=== PATIENT | female | born 1955 | race Caucasian/White ===

== ENCOUNTER 2020-05-06 13:02 | Outpatient (REF) | payer MEDICARE, OTHER, SELFPAY ==
--- NOTE | 2020-05-06 13:07 | CT_ITS ---
EXAMINATION: CT CHEST WITHOUT CONTRAST CLINICAL INFORMATION: Follow-up pulmonary nodules COMPARISON: Previous chest CT scans most recent April 2019 TECHNIQUE: Multidetector volumetric CT imaging of the chest was done. Axial MIP volume rendering provided. Sagittal and coronal reformatted images were obtained. This CT examination was performed using dose optimization techniques as appropriate, variously including the following: *Automated exposure control *Adjustment of mA and/or kV according to patient size (this includes techniques or standardized protocols for targeted exams where dose is matched to indication/reason for exam; i.e. extremities or head) *Use of iterative reconstruction technique DLP: 129 mGy-cm FINDINGS: LUNGS: The clustered calcified and noncalcified nodules or tree-in-bud appearance in the posterior right lower lobe for example axial image 353 series 5 are stable. Other smaller isolated up pulmonary nodules, largest measuring 3 mm in the left upper lobe axial image 274 series 5 are stable. No new pulmonary nodules are seen. MEDIASTINUM: The ascending thoracic aorta is upper normal in size measuring 4 cm. The aortic arch and descending thoracic aorta are normal in caliber. The heart does not appear enlarged. There is moderate coronary artery calcification. There is no pericardial effusion. There are no enlarged hilar or mediastinal lymph nodes. PLEURA: There is no pleural effusion. No pleural mass or thickening. AXILLA: No lymphadenopathy. UPPER ABDOMEN: Unremarkable. OSSEOUS STRUCTURES: There are degenerative changes of the spine. CT/CT chest wo con IMPRESSION: Stable small pulmonary nodules. Upper normal-size ascending thoracic aorta. Moderate coronary artery calcification.
== END 2020-05-06 13:03 | disposition home or self-care (01) ==
LOC: HO.CT 13:02
PROVIDERS: PCP Internal Medicine; Visit Provider Internal Medicine Pulmonary Disease
DX: R91.8 Other nonspecific abnormal finding of lung field (principal)
CPT/HCPCS: 71250

== ENCOUNTER 2020-05-12 07:52 | Outpatient (REF) | payer MEDICARE, OTHER, SELFPAY ==
[2020-05-12 08:39] LABS: MANUAL DIFF FLAG NO
[2020-05-12 08:53] LABS: Basophils Percent Auto 0.6 % (0-2); Eosinophils Absolute Auto 0.1 X10*3/uL (0.0-0.4); Hemoglobin 14.7 g/dl (12.0-16.0); Imm Gran Abs Auto 0.01 X10*3/uL (0.00-0.03); Imm Gran Pct Auto 0.1 % (0.0-0.4); Lymphocytes Absolute Auto 2.7 X10*3/uL (1.2-4.9); Lymphocytes Percent Auto 40.1 % (20-40); Mean Corpuscular HGB Conc 33.4 g/dl (31.0-35.0); Mean Corpuscular Volume 89.8 fL (80-98); Mean Platelet Volume 10.4 fL (9.4-12.3); Monocytes Absolute Auto 0.7 X10*3/uL (0.1-1.2); Monocytes Percent Auto 9.7 % (2-11); Neutrophils Absolute Auto 3.2 X10*3/uL (2.0-8.3); Neutrophils Percent Auto 47.5 % (45-73); Platelet Count 304 X10*3/uL (160-400); Red Cell Distribution Width 12.5 % (11.0-16.0); White Blood Count 6.8 X10*3/uL (4.8-10.8)
[2020-05-12 09:05] LABS: Glucose Urine UA NEG (NEG); Leukocyte Esterase Urine NEG (NEG); Nitrite Urine NEG (NEG); Urine Blood 1+ (NEG); Urine Ketones NEG (NEG); Urine Protein NEG (NEG-TRACE)
[2020-05-12 09:10] LABS: Appearance Urine CLEAR; Color Urine YELLOW
[2020-05-12 09:20] LABS: Alanine Aminotransferase 16 U/L (0-31); Albumin Level 4.2 g/dL (3.5-5.0); Alkaline Phosphatase 99 U/L (39-117); Anion Gap 9 (12-20); Aspartate Amino Transferase 18 U/L (5-31); Bilirubin Total 0.6 mg/dL (0.0-1.0); Blood Urea Nitrogen 16 mg/dL (9-16); Calcium 9.5 mg/dL (8.4-10.2); Carbon Dioxide 35 mmol/L (22-29); Chloride 102 mmol/L (96-108); Cholesterol 175 mg/dL; Estimated Glomerular Filt Rate > 60; Glucose Fasting 103 mg/dL (60-99); HDL Cholesterol 46 mg/dL; LDL Cholesterol Calculated 105 mg/dl; Potassium 5.2 mmol/l (3.3-5.1); Sodium 141 mmol/L (135-145); Total Protein 7.3 g/dL (6.5-8.0); Triglycerides 123 mg/dL
[2020-05-12 09:22] LABS: Estimated Average Glucose 126 mg/dL
[2020-05-12 09:24] LABS: Mucus Urine 1+ /LPF; Squamous Epithelial Cell Urine 1+ /LPF; WBC Urine 0-2 /HPF (0-4)
[2020-05-12 09:40] LABS: Free T4 (Free Thyroxine) 1.48 ng/dL (0.71-1.85); Thyroid Stimulating Hormone < 0.01 uIU/mL (0.32-4.0); Vitamin D 25-OH Total 39.9 ng/mL (>30)
== END 2020-05-12 07:53 | disposition home or self-care (01) ==
LOC: HO.LAB 07:52
PROVIDERS: Visit Provider Internal Medicine
DX: E78.00 Pure hypercholesterolemia, unspecified (principal); I10 Essential (primary) hypertension; R73.01 Impaired fasting glucose; R74.8 Abnormal levels of other serum enzymes; E03.9 Hypothyroidism, unspecified; K21.9 Gastro-esophageal reflux disease without esophagitis; E55.9 Vitamin D deficiency, unspecified
CPT/HCPCS: 36415; 80053; 80061; 81001; 82306; 83036; 84439; 84443; 85025

== ENCOUNTER → 2020-05-19 12:45 | Outpatient (BNVA) | payer MEDICARE, OTHER, SELFPAY | PROVIDERS: PCP Internal Medicine; Visit Provider Internal Medicine Pulmonary Disease | DX: R91.8 Other nonspecific abnormal finding of lung field (principal) | CPT/HCPCS: 99212 ==

== ENCOUNTER → 2020-07-20 13:35 | Outpatient (REF) | payer MEDICARE, OTHER, SELFPAY ==
--- NOTE | 2020-07-20 14:00 | CA_ITS ---
Transthoracic Echocardiogram Patient (Last, First, Middle): Bernice Jauregui A Gender: Female Date of : 1955 Age: 65 Procedure Date: 07/20/2020 Procedure Type: Transthoracic Echocardiogram Location: OP Height: 170.18 cm Weight: 65.77 kg BSA: 1.76 m2 Heart Rate: bpm BP: 118 / 60 mmHg Bullet Maker: Referring MD: Gil Khoury MD Symptoms: I71.2 ASCENDING AORTIC ANEURYSM Study Quality: Fair ECG Rhythm: Sinus Conclusions: - 1. Normal LV systolic function with impaired relaxation filling pattern 2. Mildly dilated ascending aorta with trivial aortic regurgitation 3. Normal RV systolic pressure 4. No pericardial effusion Findings Left Ventricle Normal left ventricular size, thickness, and systolic function. The visually estimated ejection fraction is between 65-70%. Spectral Doppler is indicative of an impaired relaxation filling pattern. E/E prime ratio is between 8 and 15 consistent with indeterminate filling pressures. Right Ventricle Normal right ventricular cavity size and systolic function. Atria Both atria are normal in size. There is no evidence of interatrial shunt. Aortic Valve Normal aortic valve structure and function. There is no aortic valve stenosis. There is trace (trivial) aortic valve regurgitation. Mitral Valve Normal mitral valve structure and function. There is no mitral valve regurgitation. There is no mitral valve stenosis. Pulmonic Valve The pulmonic valve was not well visualized. Tricuspid Valve Likely normal tricuspid valve structure and function. There is trace tricuspid valve regurgitation. The right ventricular systolic pressure is normal. The right ventricular systolic pressure is 23 mmHg. Normal right atrial pressure. There is no evidence of pulmonary hypertension. Great Vessels The pulmonary artery was not well visualized. There is mild dilatation of the ascending aorta. Venous The inferior vena cava is normal in size and collapses greater than 50% with inspiration. Pericardium/Pleural There is no evidence of pericardial effusion. Prior Study Comparison No significant change compared to prior study dated: 10/27/2017. Measurements 2D Linear Measurements IVSd: 0.95 0.6-0.9/0.6-1.0 cm LVIDd: 3.14 3.9-5.3/4.2-5.9 cm LVIDd Index: 1.78 2.4-3.2/2.2-3.1 cm/m2 LVIDs: 2.08 2.0-3.6 cm LVPWd: 1.06 0.7-1.1 cm Ao Root: 3.80 2.1-3.5 cm LA Diam: 3.60 2.7-3.8/3.0-4.0 cm LAIDs Index: 2.05 1.5-2.3 cm/m2 LV Mass: 152.41 67-162/88-224 g LV Mass Index: 86.59 43-95/49-115 g/m2 LVOT Diam: 2.00 3.0+(-)1.3 cm Mitral Valve MV Pk E: 0.71 MV PK A: 1.18 MV Decel Time: 183.00 E/A: 0.60 E'Lateral: 9.09 E'Medial: 5.13 E/E' Med: 13.80 E/E' Lat: 7.80 PHT: 54.00 MVA PHT: 4.07 Decel [place]: 3.87 Aortic Valve AoV Pk Randall: 1.87 AoV Mn Randall: 1.40 AoV VTI: 0.40 AoV Pk Grad: 14.00 Aov Mn Grad: 9.00 RODOLFO Cont.VTI: 2.19 LVOT LVOT Pk Randall: 1.39 LVOT Mn Randall: 0.88 LVOT VTI: 0.28 LVOT Pk Grad: 8.00 LVOT Mn Grad: 4.00 LVOT Diam: 2.00 LVOT Area: 3.14 Diastolic Function MV Pk E: 0.71 MV Pk A: 1.18 E/A: 0.60 E'Medial: 5.13 E/E' Med: 13.80 E' Laterial: 9.09 E/E' Lat: 7.80 Tricuspid Valve TR Pk Randall: 2.21 TR Pk Grad: 20.00 RA Press: 3.00 RVSP: 23.00 Great Vessels Aorta Ao Root-2D: 3.80 2.0-3.7 cm Ao Asc: 3.90 2.1-3.4 cm Pulmonary Valve PV Pk Randall: 0.92 Peak PV Grad: 3.00 Updated in Other Vendor System with Status of Final Keith Sifuentes MD electronically signed on 07/21/2020 8:47:49 AM with status of Final
== END ==
LOC: HO.CARD 13:35
PROVIDERS: PCP Internal Medicine; Visit Provider Internal Medicine
DX: I71.2 Thoracic aortic aneurysm, without rupture (principal)
CPT/HCPCS: 93306

== ENCOUNTER → 2020-07-28 13:38 | Outpatient (BNVA) | payer MEDICARE, OTHER, SELFPAY | PROVIDERS: PCP Internal Medicine; Visit Provider Internal Medicine | DX: I25.10 Atherosclerotic heart disease of native coronary artery without angina pectoris (principal); I71.2 Thoracic aortic aneurysm, without rupture; I10 Essential (primary) hypertension | CPT/HCPCS: 93005; 99212 ==

== ENCOUNTER 2020-09-06 00:36 | Emergency (ER) | payer MEDICARE, OTHER, SELFPAY ==
[2020-09-06] VITALS (8 sets, daily range): BP systolic 112–142; BP diastolic 69–79; PULSE 104–135; RESP 16–31; O2SAT 89–96; BMI 21.1; BMI 21.4
--- NOTE | ~2020-09-06 | XR_ITS ---
EXAMINATION: XR CHEST CLINICAL INFORMATION: Shortness of breath COMPARISON: CT chest dated 05/06/2020 TECHNIQUE: 2 views of the chest were obtained. FINDINGS: Pulmonary venous congestion. Bilateral parahilar hazy opacity and mild interstitial thickening present. No pleural effusion or pneumothorax. Normal heart size. Aorta is atherosclerotic. XR/XR chest 2V IMPRESSION: Radiographic findings could be compatible with either pulmonary edema or an atypical pneumonitis.
--- NOTE | ~2020-09-06 | CT_ITS ---
EXAMINATION: CT CHEST WITH CONTRAST CLINICAL INFORMATION: New onset heart failure. No aortic aneurysm. COMPARISON: 05/06/2020 TECHNIQUE: Multidetector volumetric CT imaging of the chest was obtained after the administration of 65 mL of Omnipaque 350 intravenous contrast without immediate adverse reactions. Axial MIP volume rendering provided. Sagittal and coronal reformatted images were obtained. This CT examination was performed using dose optimization techniques as appropriate, variously including the following: *Automated exposure control *Adjustment of mA and/or kV according to patient size (this includes techniques or standardized protocols for targeted exams where dose is matched to indication/reason for exam; i.e. extremities or head) *Use of iterative reconstruction technique DLP: 188 mGy-cm FINDINGS: LUNGS: Smooth intralobular septal thickening present throughout both lungs reflective of interstitial pulmonary edema. There is diffuse mild peribronchial cuffing likely representing interstitial fluid along the neurovascular bundles is well. Scattered patchy groundglass opacities are present. Regionally distributed micronodules, some with shadowing calcification present within the posteromedial right lower lobe. MEDIASTINUM: Left ventricular dilatation appears new from prior. No pericardial effusion. Triple vessel coronary calcifications. Stable ascending aortic aneurysm measuring 4.0 cm. Main pulmonary artery mildly dilated at 31 mm suggesting pulmonary hypertension. No evidence of pulmonary embolism. No mediastinal, hilar or supraclavicular adenopathy. PLEURA: Trace right pleural effusion. No pleural mass or thickening. AXILLA: No lymphadenopathy. UPPER ABDOMEN: Unremarkable OSSEOUS STRUCTURES: No acute or suspicious osseous abnormalities. Small endplate ossified is present throughout the thoracic spine. CT/CT chest w con IMPRESSION: * Interstitial pulmonary edema. Scattered groundglass opacities could represent a superimposed pneumonitis or mild alveolar component of the patient's edema. * Trace right pleural effusion. * The left ventricle appears mildly dilated compared to the prior exam. * Mildly dilated main pulmonary artery suggests pulmonary hypertension. * Triple vessel coronary calcifications. * Stable ascending aortic aneurysm measuring 4.0 cm.
--- NOTE | 2020-09-06 01:34 | ECG_ITS ---
Test Reason : SOB Blood Pressure : / mmHG Vent. Rate : 113 BPM Atrial Rate : 113 BPM P-R Int : 152 ms QRS Dur : 092 ms QT Int : 326 ms P-R-T Axes : 033 009 080 degrees QTc Int : 447 ms Sinus tachycardia Moderate voltage criteria for LVH, may be normal variant Nonspecific T wave abnormality Abnormal ECG When compared with ECG of 14-APR-2016 09:15, Vent. rate has increased BY 49 BPM T wave inversion no longer evident in Inferior leads Referred By: Kathy Cantu Electronically Signed By:BABATUNDE WHITFIELD
--- NOTE | 2020-09-06 01:37 | ED_ITS ---
HPI - SOB/Dyspnea General Chief Complaint: Dyspnea Stated Complaint: Sob/Chest pressure Time Seen by Provider: 09/06/20 01:34 Source: patient Mode of arrival: ambulatory History of Present Illness HPI Narrative: This is a 65-year-old female with history of hypertension, thyroid disease, hyperlipidemia who presents this evening with worsening shortness of breath and dyspnea on exertion that started this afternoon after she was helping her mother move upstairs. Patient states that at the time of onset she did experience sweating as well as an episode of nausea but denies any dizziness. In addition, she does describe a small amount of chest discomfort and she points to the substernal chest area. She denies any recent fevers, chills, vomiting, abdominal pain, diarrhea, urinary pain/burning/frequency. She denies any previous history of COPD, heart failure. Related Data Home Medications Medication Instructions Recorded Confirmed cholecalciferol (vitamin D3) 25 25 mcg PO DAILY 06/05/20 09/06/20 mcg (1,000 unit) capsule atorvastatin 80 mg tablet 80 mg PO DAILY 07/28/20 09/06/20 Previous Rx's Medication Instructions Recorded fluoxetine 10 mg capsule 10 mg PO QAM #90 cap 03/18/20 levothyroxine 50 mcg tablet 50 mcg PO QAM #90 tab 05/16/20 hydrochlorothiazide 25 mg tablet 25 mg PO QAM #90 tab 06/08/20 Allergies Allergy/AdvReac Type Severity Reaction Status Date / Time Sulfa (Sulfonamide Allergy Unknown unknown Verified 06/05/20 12:11 Antibiotics) [SULFA (SULFONAMIDE ANTIBIOTICS)] Review of Systems Review of Systems: Pertinent positives and negatives as stated in HPI 10 point review of systems is otherwise negative. [facility] Past Medical History Source: nursing notes reviewed Medical History Acquired hypothyroidism Ascending aortic aneurysm Atherosclerotic cardiovascular disease Benign essential hypertension GERD without esophagitis Impaired fasting glucose Osteoarthritis of hands, bilateral PMS (premenstrual syndrome) Primary insomnia Pure hypercholesterolemia Vitamin D deficiency Surgical History No pertinent past surgical history Family History Family History Father Medical history unknown Mother Hypertension CVD (cardiovascular disease) Breast cancer metastasized to bone Social History Social History Alcohol intake: never Smoking Status: Former smoker Advance Directives: No Physical Exam Vital Signs: Vital Signs: Last Vital Signs Pulse 111 H 09/06/20 03:58 Resp 20 09/06/20 03:58 BP 123/77 09/06/20 03:58 Pulse Ox 94 09/06/20 03:58 Body Mass Index 21.4 VITAL SIGNS: Reviewed. GENERAL: Well developed, well nourished, in no acute distress. HEAD: Normocephalic/atraumatic NOSE: Nares patent bilateral OROPHARYNX: no oral lesions noted, posterior pharynx clear NECK: Supple, no adenopathy LUNGS: Normal breath sounds. No adventitious sounds or accessory muscle use. SpO2<91> CARDIOVASCULAR: Regular rate and rhythm without noted murmurs, no JVD or lower extremity edema. ABDOMEN: Soft, non-tender, non-distended with bowel sounds. NEUROLOGIC: Alert and oriented x 4. Course Course Course Narrative: This is a 65-year-old female with history and clinical presentation consistent with acute, new onset heart failure and will be evaluated for cardiac ischemia and patient with known ascending aortic aneurysm. Patient was placed on supplemental oxygen as she was noted to drop to 89% and chest x-ray is consistent with heart failure as well as elevated BNP. Review of EKG is without acute findings when compared to prior on 04/14/2016. In addition, will do CT scan of chest given patient's history of ascending aortic aneurysm. Review of all investigations significant for troponin of greater than 4900. This case was discussed with Cardiology at [facility] and patient is currently asymptomatic of chest pain but was provided with aspirin. Reevaluation(s) Reevaluation #1: I discussed this case with Dr. Gomez, Cardiology at [facility], who accepts transfer the patient to the telemetry floor with rec ommendations for atorvastatin and heparin. Heparin was started after CT scan shows a stable aortic aneurysm at 4 cm. Time: 03:50 MDM - SOB/Dyspnea Lab Data Result diagrams: 09/06/20 02:00 09/06/20 02:00 Labs: Lab Results 09/06/20 09/06/20 09/06/20 Range/Units 01:56 02:00 02:00 WBC 13.0 H (4.8-10.8) X10*3/uL RBC 4.71 (4.20-5.50) X10*6/uL Hgb 13.6 (12.0-16.0) g/dl Hct 40.3 (37-47) % MCV 85.6 (80-98) fL MCH 28.9 (27.0-33.0) pg MCHC 33.7 (31.0-35.0) g/dl RDW 12.4 (11.0-16.0) % Plt Count 299 (160-400) X10*3/uL MPV 10.3 (9.4-12.3) fL Immature Gran % (Auto) 0.2 (0.0-0.4) % Neut % (Auto) 73.1 H (45-73) % Lymph % (Auto) 17.7 L (20-40) % Crook % (Auto) 8.6 (2-11) % Eos % (Auto) 0.1 (0-4) % Baso % (Auto) 0.3 (0-2) % Lymph # (Auto) 2.3 (1.2-4.9) X10*3/uL [place] # (Auto) 1.1 (0.1-1.2) X10*3/uL Eos # (Auto) 0.0 (0.0-0.4) X10*3/uL Baso # (Auto) 0.0 (0.0-0.2) X10*3/uL Abs Immat Gran (auto) 0.03 (0.00-0.03) X10*3/uL Absolute Neuts (auto) 9.5 H (2.0-8.3) X10*3/uL Absolute Nucleated RBC 0.000 (0.0-0.012) X10*3/uL Nucleated RBC % (auto) 0.0 (0.0-0.2) /100WBC Sodium 141 (135-145) mmol/L Potassium 3.8 (3.3-5.1) mmol/L Chloride 102 (96-108) mmol/L Carbon Dioxide 26 (22-29) mmol/L Anion Gap 17 (12-20) BUN 20 H (9-16) mg/dL Creatinine 0.69 (0.5-1.4) mg/dL Estim Creat Clear Calc 76.4 Estimated GFR > 60 Random Glucose 144 H (60-115) mg/dL Calcium 9.6 (8.4-10.2) mg/dL Total Bilirubin 0.9 (0.0-1.0) mg/dL AST 41 H D (5-31) U/L ALT 30 (0-31) U/L Alkaline Phosphatase 103 (39-117) U/L Troponin I High Sens (<3.5-17.0) ng/L B-Natriuretic Peptide (<100) pg/mL Total Protein 7.0 (6.5-8.0) g/dL Albumin 3.9 (3.5-5.0) g/dL Lipase (8-78) U/L TSH (0.32-4.0) uIU/mL COVID-19 (LIT) Negative (Negative) COVID-19 Clin Com See Note 09/06/20 09/06/20 Range/Units 02:00 02:00 WBC (4.8-10.8) X10*3/uL RBC (4.20-5.50) X10*6/uL Hgb (12.0-16.0) g/dl Hct (37-47) % MCV (80-98) fL MCH (27.0-33.0) pg MCHC (31.0-35.0) g/dl RDW (11.0-16.0) % Plt Count (160-400) X10*3/uL MPV (9.4-12.3) fL Immature Gran % (Auto) (0.0-0.4) % Neut % (Auto) (45-73) % Lymph % (Auto) (20-40) % Crook % (Auto) (2-11) % Eos % (Auto) (0-4) % Baso % (Auto) (0-2) % Lymph # (Auto) (1.2-4.9) X10*3/uL Crook # (Auto) (0.1-1.2) X10*3/uL Eos # (Auto) (0.0-0.4) X10*3/uL Baso # (Auto) (0.0-0.2) X10*3/uL Abs Immat Gran (auto) (0.00-0.03) X10*3/uL Absolute Neuts (auto) (2.0-8.3) X10*3/uL Absolute Nucleated RBC (0.0-0.012) X10*3/uL Nucleated RBC % (auto) (0.0-0.2) /100WBC Sodium (135-145) mmol/L Potassium (3.3-5.1) mmol/L Chloride (96-108) mmol/L Carbon Dioxide (22-29) mmol/L Anion Gap (12-20) BUN (9-16) mg/dL Creatinine (0.5-1.4) mg/dL Estim Creat Clear Calc Estimated GFR Random Glucose (60-115) mg/dL Calcium (8.4-10.2) mg/dL Total Bilirubin (0.0-1.0) mg/dL AST (5-31) U/L ALT (0-31) U/L Alkaline Phosphatase (39-117) U/L Troponin I High Sens 4936.2 H (<3.5-17.0) ng/L B-Natriuretic Peptide 727 H (<100) pg/mL Total Protein (6.5-8.0) g/dL Albumin (3.5-5.0) g/dL Lipase 25 (8-78) U/L TSH < 0.01 L (0.32-4.0) uIU/mL COVID-19 (LIT) (Negative) COVID-19 Clin Com ECG Data Attestation: I personally reviewed and interpreted this ECG as follows: Prior ECG tracings: available for review (04/14/2016 no acute changes on co mparison) Interpretation: Sinus tachycardia, HR-113, no evidence of acute ischemia, NC/QRS/QTC are within normal limits. Discharge Plan Discharge Clinical Impression: Non-ST elevation [place] (NSTEMI), New onset of congestive heart failure Patient Disposition: Xfer Acute Care Hospital Transfer Details: NSTEMI, acute onset heart failure Prescriptions: No Action fluoxetine 10 mg capsule 10 mg PO QAM Qty: 90 RF: 2 levothyroxine 50 mcg tablet 50 mcg PO QAM Qty: 90 RF: 1 hydrochlorothiazide 25 mg tablet 25 mg PO QAM Qty: 90 RF: 1 cholecalciferol (vitamin D3) 25 mcg (1,000 unit) capsule 25 mcg PO DAILY RF: 0
[2020-09-06 02:08] LABS: MANUAL DIFF FLAG NO
[2020-09-06 02:14] LABS: Basophils Percent Auto 0.3 % (0-2); Eosinophils Percent Auto 0.1 % (0-4); Hematocrit 40.3 % (37-47); Hemoglobin 13.6 g/dl (12.0-16.0); Imm Gran Abs Auto 0.03 X10*3/uL (0.00-0.03); Imm Gran Pct Auto 0.2 % (0.0-0.4); Lymphocytes Absolute Auto 2.3 X10*3/uL (1.2-4.9); Lymphocytes Percent Auto 17.7 % (20-40); Mean Corpuscular HGB Conc 33.7 g/dl (31.0-35.0); Mean Corpuscular Hemoglobin 28.9 pg (27.0-33.0); Mean Corpuscular Volume 85.6 fL (80-98); Mean Platelet Volume 10.3 fL (9.4-12.3); Monocytes Absolute Auto 1.1 X10*3/uL (0.1-1.2); Monocytes Percent Auto 8.6 % (2-11); Neutrophils Absolute Auto 9.5 X10*3/uL (2.0-8.3); Neutrophils Percent Auto 73.1 % (45-73); Platelet Count 299 X10*3/uL (160-400); Red Blood Count 4.71 X10*6/uL (4.20-5.50); Red Cell Distribution Width 12.4 % (11.0-16.0)
[2020-09-06 02:30] LABS: COVID-19 Test Negative (Negative); IDNOW Serial# 9DD0AD1C
[2020-09-06 02:33] LABS: Lipase 25 U/L (8-78)
[2020-09-06 02:34] LABS: Alanine Aminotransferase 30 U/L (0-31); Albumin Level 3.9 g/dL (3.5-5.0); Alkaline Phosphatase 103 U/L (39-117); Anion Gap 17 (12-20); Aspartate Amino Transferase 41 U/L (5-31); Bilirubin Total 0.9 mg/dL (0.0-1.0); Blood Urea Nitrogen 20 mg/dL (9-16); Calcium 9.6 mg/dL (8.4-10.2); Carbon Dioxide 26 mmol/L (22-29); Chloride 102 mmol/L (96-108); Creatinine Clr Calc Pharmacy 76.4; Estimated Glomerular Filt Rate > 60; Glucose Random 144 mg/dL (60-115); Potassium 3.8 mmol/L (3.3-5.1); Sodium 141 mmol/L (135-145)
[2020-09-06 02:39] LABS: B Type Natriuretic Peptide 727 pg/mL (<100)
[2020-09-06 03:35] LABS: Troponin-I High Sensitivity 4936.2 ng/L (<3.5-17.0)
[2020-09-06 03:40] LABS: Thyroid Stimulating Hormone < 0.01 uIU/mL (0.32-4.0)
--- NOTE | 2020-09-06 03:40 | ECG_ITS ---
Test Reason : CHEST PAIN Blood Pressure : / mmHG Vent. Rate : 109 BPM Atrial Rate : 109 BPM P-R Int : 158 ms QRS Dur : 098 ms QT Int : 350 ms P-R-T Axes : 050 009 082 degrees QTc Int : 471 ms Sinus tachycardia Possible Left atrial enlargement Left ventricular hypertrophy T wave abnormality, consider lateral ischemia Abnormal ECG When compared with ECG of 06-SEP-2020 01:52, Nonspecific T wave abnormality now evident in Inferior leads Referred By: Kathy Cantu Electronically Signed By:BABATUNDE WHITFIELD
[2020-09-06] MEDS: iohexoL 350 MG/ML 100 ML INFUS..BTL 65 ML IV (03:47)
[2020-09-06] MEDS: Aspirin 81 MG TAB.CHEW 324 MG PO (03:53)
[2020-09-06] MEDS: Furosemide 40 MG/4 ML VIAL IVPUSH (03:53)
[2020-09-06] MEDS: Atorvastatin Calcium 80 MG TABLET PO (04:06)
--- NOTE | 2020-09-06 04:09 | PC.NURSE ---
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 UP TO 130S WHILE USING COMMODE. NOW REPORTS COME TO THINK OF IT I'VE FELT OFF FOR THE LAST 5 DAYS.
--- NOTE | 2020-09-06 04:18 | PC.NURSE ---
NURSE TO NURSE GIVEN TO ELIOT GLASGOW AT [facility].
[2020-09-06] MEDS: Heparin Sodium,Porcine 5,000 UNIT/ML VIAL 3700 UNIT IVPUSH (04:45)
[2020-09-06] MEDS: Heparin Sodium,Porcine/1/2NS 25,000 UNIT/250 ML IV.SOLN 7.44 UNIT IVCONT (04:47)
== END 2020-09-06 04:56 | disposition short-term general hospital (02) ==
PROVIDERS: Emergency Provider Student in an Organized Health Care Education/Training Program; PCP Internal Medicine
DX: I21.4 Non-ST elevation (NSTEMI) myocardial infarction (principal); I50.9 Heart failure, unspecified; I11.0 Hypertensive heart disease with heart failure; R00.0 Tachycardia, unspecified; Z20.822 Contact with and (suspected) exposure to COVID-19; R11.0 Nausea; I71.4 Abdominal aortic aneurysm, without rupture; E78.5 Hyperlipidemia, unspecified; Z79.02 Long term (current) use of antithrombotics/antiplatelets; Z87.891 Personal history of nicotine dependence
CPT/HCPCS: 36415; 71046; 71260; 80053; 83690; 83880; 84443; 84484; 85025; 87635; 93005; 96374; 96375; 96376; 99285; J1940; Q9967

== ENCOUNTER → 2020-09-24 12:40 | Outpatient (BNVA) | payer MEDICARE, OTHER, SELFPAY | PROVIDERS: PCP Internal Medicine; Visit Provider Internal Medicine | DX: I25.10 Atherosclerotic heart disease of native coronary artery without angina pectoris (principal); I21.4 Non-ST elevation (NSTEMI) myocardial infarction; I71.2 Thoracic aortic aneurysm, without rupture; I10 Essential (primary) hypertension | CPT/HCPCS: 99212 ==

== ENCOUNTER 2020-09-25 07:35 | Outpatient (REF) | payer MEDICARE, OTHER, SELFPAY ==
[2020-09-25 09:22] LABS: Cholesterol 141 mg/dL; HDL Cholesterol 45 mg/dL; LDL Cholesterol Calculated 76 mg/dl; Triglycerides 101 mg/dL
== END 2020-09-25 07:36 | disposition home or self-care (01) ==
LOC: HO.LAB 07:35
PROVIDERS: PCP Internal Medicine; Visit Provider Internal Medicine
DX: I21.4 Non-ST elevation (NSTEMI) myocardial infarction (principal)
CPT/HCPCS: 36415; 80061

== ENCOUNTER 2020-11-27 08:49 | Outpatient (REF) | payer MEDICARE, OTHER, SELFPAY ==
[2020-11-27 09:31] LABS: MANUAL DIFF FLAG NO
[2020-11-27 09:35] LABS: Basophils Absolute Auto 0.1 X10*3/uL (0.0-0.2); Basophils Percent Auto 0.7 % (0-2); Eosinophils Absolute Auto 0.3 X10*3/uL (0.0-0.4); Eosinophils Percent Auto 3.4 % (0-4); Hematocrit 42.8 % (37-47); Hemoglobin 14.3 g/dl (12.0-16.0); Imm Gran Abs Auto 0.01 X10*3/uL (0.00-0.03); Imm Gran Pct Auto 0.1 % (0.0-0.4); Lymphocytes Percent Auto 40.4 % (20-40); Mean Corpuscular HGB Conc 33.4 g/dl (31.0-35.0); Mean Corpuscular Hemoglobin 29.9 pg (27.0-33.0); Mean Corpuscular Volume 89.5 fL (80-98); Mean Platelet Volume 10.1 fL (9.4-12.3); Monocytes Absolute Auto 0.7 X10*3/uL (0.1-1.2); Monocytes Percent Auto 9.4 % (2-11); Neutrophils Absolute Auto 3.4 X10*3/uL (2.0-8.3); Platelet Count 245 X10*3/uL (160-400); Red Blood Count 4.78 X10*6/uL (4.20-5.50); White Blood Count 7.4 X10*3/uL (4.8-10.8)
[2020-11-27 09:50] LABS: Glucose Urine UA NEG (NEG); Leukocyte Esterase Urine NEG (NEG); Nitrite Urine NEG (NEG); PH 7.5 (5.0-8.0); Specific Gravity - Urine 1.015 (1.005-1.025); Urine Blood TRACE (NEG); Urine Ketones NEG (NEG); Urine Protein TRACE MG/DL (NEG-TRACE)
[2020-11-27 09:56] LABS: Appearance Urine HAZY; Color Urine YELLOW
[2020-11-27 10:04] LABS: Mucus Urine TRACE /LPF; Squamous Epithelial Cell Urine 2+ /LPF
[2020-11-27 10:19] LABS: Alanine Aminotransferase 15 U/L (0-31); Albumin Level 4.2 g/dL (3.5-5.0); Alkaline Phosphatase 120 U/L (39-117); Anion Gap 9 (12-20); Aspartate Amino Transferase 18 U/L (5-31); Bilirubin Total 0.8 mg/dL (0.0-1.0); Blood Urea Nitrogen 16 mg/dL (9-16); Calcium 9.6 mg/dL (8.4-10.2); Carbon Dioxide 34 mmol/L (22-29); Chloride 103 mmol/L (96-108); Cholesterol 114 mg/dL; Estimated Glomerular Filt Rate > 60; Glucose Fasting 100 mg/dL (60-99); HDL Cholesterol 58 mg/dL; LDL Cholesterol Calculated 42 mg/dl; Potassium 4.7 mmol/L (3.3-5.1); Sodium 141 mmol/L (135-145); Total Protein 7.3 g/dL (6.5-8.0); Triglycerides 72 mg/dL
[2020-11-27 10:34] LABS: Estimated Average Glucose 123 mg/dL; Hemoglobin A1c % 5.9 %
[2020-11-27 11:01] LABS: Free T4 (Free Thyroxine) 0.87 ng/dL (0.71-1.85); Thyroid Stimulating Hormone 0.08 uIU/mL (0.32-4.0); Vitamin D 25-OH Total 43.4 ng/mL (>30)
== END 2020-11-27 08:50 | disposition home or self-care (01) ==
LOC: HO.LAB 08:49
PROVIDERS: PCP Internal Medicine; Visit Provider Internal Medicine
DX: I10 Essential (primary) hypertension (principal); K21.9 Gastro-esophageal reflux disease without esophagitis; E78.00 Pure hypercholesterolemia, unspecified; R73.01 Impaired fasting glucose; E03.9 Hypothyroidism, unspecified; E55.9 Vitamin D deficiency, unspecified
CPT/HCPCS: 36415; 80053; 80061; 81001; 82306; 83036; 84439; 84443; 85025

== ENCOUNTER → 2020-12-24 13:29 | Outpatient (BNVA) | payer MEDICARE, OTHER, SELFPAY | PROVIDERS: PCP Internal Medicine; Visit Provider Internal Medicine | DX: I25.10 Atherosclerotic heart disease of native coronary artery without angina pectoris (principal); I21.4 Non-ST elevation (NSTEMI) myocardial infarction; I71.2 Thoracic aortic aneurysm, without rupture; I10 Essential (primary) hypertension | CPT/HCPCS: 99212 ==

== ENCOUNTER 2021-03-01 08:37 | Outpatient (REF) | payer MEDICARE, OTHER, SELFPAY ==
[2021-03-01 09:03] LABS: MANUAL DIFF FLAG NO
[2021-03-01 09:27] LABS: Basophils Absolute Auto 0.1 X10*3/uL (0.0-0.2); Basophils Percent Auto 0.6 % (0-2); Eosinophils Absolute Auto 0.2 X10*3/uL (0.0-0.4); Eosinophils Percent Auto 2.6 % (0-4); Hematocrit 44.3 % (37-47); Hemoglobin 14.9 g/dl (12.0-16.0); Imm Gran Abs Auto 0.02 X10*3/uL (0.00-0.03); Imm Gran Pct Auto 0.2 % (0.0-0.4); Lymphocytes Absolute Auto 2.8 X10*3/uL (1.2-4.9); Lymphocytes Percent Auto 32.3 % (20-40); Mean Corpuscular HGB Conc 33.6 g/dl (31.0-35.0); Mean Corpuscular Hemoglobin 30.3 pg (27.0-33.0); Mean Corpuscular Volume 90.2 fL (80-98); Mean Platelet Volume 10.3 fL (9.4-12.3); Monocytes Absolute Auto 0.7 X10*3/uL (0.1-1.2); Monocytes Percent Auto 8.4 % (2-11); Neutrophils Absolute Auto 4.8 X10*3/uL (2.0-8.3); Neutrophils Percent Auto 55.9 % (45-73); Platelet Count 330 X10*3/uL (160-400); Red Blood Count 4.91 X10*6/uL (4.20-5.50); Red Cell Distribution Width 12.2 % (11.0-16.0); White Blood Count 8.6 X10*3/uL (4.8-10.8)
[2021-03-01 09:54] LABS: Alanine Aminotransferase 15 U/L (0-31); Albumin Level 4.1 g/dL (3.5-5.0); Alkaline Phosphatase 110 U/L (39-117); Anion Gap 10 (12-20); Aspartate Amino Transferase 17 U/L (5-31); Bilirubin Total 0.5 mg/dL (0.0-1.0); Blood Urea Nitrogen 12 mg/dL (9-16); Carbon Dioxide 33 mmol/L (22-29); Chloride 102 mmol/L (96-108); Cholesterol 143 mg/dL; Estimated Glomerular Filt Rate > 60; Glucose Fasting 100 mg/dL (60-99); HDL Cholesterol 47 mg/dL; LDL Cholesterol Calculated 70 mg/dl; Potassium 4.4 mmol/L (3.3-5.1); Sodium 141 mmol/L (135-145); Total Protein 7.3 g/dL (6.5-8.0); Triglycerides 132 mg/dL
[2021-03-01 09:57] LABS: Appearance Urine CLEAR; Color Urine YELLOW; Glucose Urine UA NEG (NEG); Leukocyte Esterase Urine NEG (NEG); Nitrite Urine NEG (NEG); UACC Culture Trigger NO; Urine Blood TRACE (NEG); Urine Ketones NEG (NEG); Urine Protein NEG (NEG-TRACE)
[2021-03-01 10:17] LABS: Free T4 (Free Thyroxine) 0.83 ng/dL (0.71-1.85); Thyroid Stimulating Hormone 0.02 uIU/mL (0.32-4.0); Vitamin D 25-OH Total 44.7 ng/mL (>30)
[2021-03-01 10:57] LABS: Bacteria Urine TRACE /LPF; Mucus Urine 2+ /LPF; Squamous Epithelial Cell Urine 2+ /LPF
== END 2021-03-01 08:38 | disposition home or self-care (01) ==
LOC: HO.LAB 08:37
PROVIDERS: PCP Internal Medicine; Visit Provider Internal Medicine
DX: E55.9 Vitamin D deficiency, unspecified (principal); K21.9 Gastro-esophageal reflux disease without esophagitis; I10 Essential (primary) hypertension; E78.00 Pure hypercholesterolemia, unspecified; E05.90 Thyrotoxicosis, unspecified without thyrotoxic crisis or storm; I25.10 Atherosclerotic heart disease of native coronary artery without angina pectoris
CPT/HCPCS: 36415; 80053; 80061; 81001; 81003; 82306; 84439; 84443; 85025

== ENCOUNTER 2021-03-03 14:23 | Outpatient (AMB) | payer MEDICARE, OTHER, SELFPAY ==
[2021-03-03 14:24] VITALS: BP 136/80; PULSE 60; TEMP 35.9; O2SAT 98; BMI 21.7
--- NOTE | 2021-03-03 14:24 | MHC.PC.OV ---
Vital Signs 03/03/21 14:24 Height 5 ft 7 in Weight 139 lb BMI 21.7 BP 136/80 Pulse 60 Pulse Source Pulse Oximeter Temp 96.7 F L Pulse Oximetry (%) 98 Oxygen Delivery Method Room Air Intake Visit Reasons: CAD, DM, hyperlipidemia Spray Technician Required: No Accompanied by: Self / Same As Patient Allergies Sulfa (Sulfonamide Antibiotics) [SULFA (SULFONAMIDE ANTIBIOTICS)] Allergy (Unknown, Verified 06/08/23 12:22) unknown Tobacco use date assessed: 03/03/21 Fall risk assessment: No Falls in past year Last assessed Fall Risk: 03/03/21 HPI CAD, DM, hyperlipidemia HPI Details Patient comes in today for her follow up visit States that she feels okay She denies any headaches or dizziness Denies any chest pains, no shortness of breath No nausea /vomiting, no abdominal pain No change in bowel habits noted Had her follow-up labs done a couple of days ago - to discuss her results [facility] Medical History Hyperthyroidism NSTEMI (non-ST elevation myocardial infarction) Ascending aortic aneurysm Atherosclerotic cardiovascular disease Primary insomnia PMS (premenstrual syndrome) Osteoarthritis of hands, bilateral GERD without esophagitis Vitamin D deficiency Impaired fasting glucose Acquired hypothyroidism Pure hypercholesterolemia Benign essential hypertension Surgical History History of cardiac catheterization (~08/2020) Family History Father Medical history unknown Mother Hypertension CVD (cardiovascular disease) Breast cancer metastasized to bone Social History Housing: House Alcohol intake: current Alcohol intake frequency: holidays/special occasions only Patient Tobacco Use Status: Former Tobacco user e-Cigarette/Vaping Use: Never Used Second Hand Smoke Exposure: Yes service: No Current occupational status: retired Cognitive needs: No Hearing needs: No Vision needs: No Questionnaire PHQ-9 Over the last 2 weeks, how often have you been bothered by any of the following problems? 1. Little interest or pleasure in doing things: not at all 2. Feeling down, depressed, or hopeless: not at all 3. Trouble falling or staying asleep, or sleeping too much: not at all 4. Feeling tired or having little energy: not at all 5. Poor appetite or overeating: not at all 6. Feeling bad about yourself - or that you are a failure or have let yourself or your family down: not at all 7. Trouble concentrating on things, such as reading the newspaper or watching television: not at all 8. Moving or speaking so slowly that other people could have noticed. Or the opposite - being so fidgety or restless that you have been moving around a lot more than usual: not at all 9. Thoughts that you would be better off or of hurting yourself in some way: not at all Total score: 0 Depression Screening Interpretation: Negative 26927 - PHQ-9 Billing: Yes Source: Developed by Drs. Jj Watt, Irene Tapia, Ariel Cabrales and colleagues, with an educational piero from [employer]. Thrive Questionnaire Declines Thrive assessment: No Date Thrive assessed: 03/03/21 I am a: Patient What is your living situation today?: I have a steady place to live Within the past 12 months, did the food you bought not last and you didn't have the money to get more?: Never true Within the past 12 months, did you worry whether your food would run out before you got money to buy more?: Never true Do you have trouble paying for medicines?: No Do you have trouble getting transportation to medical appointments?: No Do you have trouble paying your heating and electricity bill?: No Do you have trouble taking care of your child, family member or friend?: No Do you have trouble with day-to-day activities such as bathing, preparing meals, shopping, managing finances, etc.?: No Are you currently unemployed and looking for a job?: No Are you interested in more education?: No Currently or been in a relationship where the following occur: no concerns reported AUDIT C Alcohol Use Questionnaire (AUDIT-C) 1. How often do you have a drink containing alcohol?: Monthly or less 2. How many drinks containing alcohol do you have on a typical day when you are drinking?: 1 or 2 3. How often do you have six or more drinks on one occasion?: Never Total Score: 1 Score Reviewed/Action Taken: Yes YOVANY-7 AMB Questionnaire YOVANY-7 Date YOVANY - 7 assessed: 03/03/21 Feeling nervous, anxious, or on edge: 0 = Not at all Not being able to stop or control worryin = Not at all Worrying too much about different things: 0 = Not at all Trouble relaxin = Not at all Being so restless that it is hard to sit still: 0 = Not at all Becoming easily annoyed or irritable: 0 = Not at all Feeling afraid as if something awful might happen: 0 = Not at all Total YOVANY-7 score (0-4 normal; 5-9 mild; 10-14 moderate; 15-21 severe): 0 Source: Developed by Drs. Jj Watt, Irene Tapia, Ariel Cabrales and colleagues, with an educational piero from [employer]. Review of Systems Const Denies chills, Reports fatigue, Denies fever(s) and Denies headache(s) ENT Denies dysphagia, Denies dizziness, Denies otalgia, Denies headache(s), Denies odynophagia and Denies sore throat Card Denies chest pain, Denies palpitations and Denies dyspnea Resp Denies cough and Denies dyspnea GI Denies abdominal pain, Denies constipation, Denies dysphagia, Denies diarrhea, Denies nausea, Denies odynophagia and Denies vomiting Denies difficulty voiding, Denies nocturia and Denies dysuria Musc Denies back pain Skin/Breast Denies rash Neuro Denies dizziness and Denies headache(s) Endo Reports fatigue and Denies palpitations Physical exam (Primary Care) Vital Signs: Last Vital Signs Temp 96.7 F L 03/03/21 14:24 Pulse 60 03/03/21 14:24 BP 136/80 03/03/21 14:24 Pulse Ox 98 03/03/21 14:24 Oxygen Delivery Method Room Air 03/03/21 14:24 BMI result Body Mass Index 21.7 Tobacco/Smoking Status: Tobacco use Status Tobacco use date assessed 03/03/21 03/03/21 14:26 Patient Tobacco Use Status Former Tobacco user 03/03/21 14:26 PHQ-9: PHQ-9 Score PHQ-9: Total score 0 06/01/22 15:01 Depression Screening Interpretation: Negative Date Thrive assessed: 03/03/21 Currently or been in a relationship where the following occur: no concerns reported Const General: no acute distress and alert HENMT Ears: TM's normal bilaterally Throat: Yes posterior oropharynx normal and Yes tonsils normal (no TP congestion noted) Neck Neck: Yes no lymphadenopathy and Yes supple Resp Auscultation: clear to auscultation bilaterally, no rales and no wheezes Cardio Rate: regular rate Rhythm: regular rhythm Heart sounds: no murmurs GI Palpation (GI): Soft to palpation, nontender and No hepatosplenomegaly present Extrem General: Yes no clubbing, cyanosis or edema Office Procedures Flu Questionnaire Does the patient have a severe egg allergy?: No Does the patient have severe life threatening allergies?: No Does the patient have a fever or illness today?: No Has the patient ever had Guillain-Plainfield Syndrome?: No Has the patient ever had any past reaction to a flu shot?: No Results AMB Hemoglobin A1c AMB Hemoglobin A1c 6.1 % Last Edit by SUMMER Ceballos on 03/03/21 14:37 Immunizations flu vacc [id number] 6mos up(PF) 60 mcg(15 mcgx4)/0.5 mL IM syringe Performing Provider: Todd Weston MD Performing [facility] [place] [facility] Documented (not given) by: SUMMER Ceballos on 03/03/21 14:33 Reason Not Given: Patient Refused Results Reviewed Results Reviewed: Laboratory Last Values Hgb A1c (Clinic) 6.1 % (4.0-6.0) H 03/03/21 14:35 Laboratory Tests 03/01/21 03/01/21 03/01/21 09:00 09:00 09:22 WBC 8.6 Hgb 14.9 Hct 44.3 Plt Count 330 D Sodium 141 Potassium 4.4 Creatinine 0.74 Estimated GFR > 60 Fasting Glucose 100 H Calcium 10.0 AST 17 ALT 15 Triglycerides 132 Cholesterol 143 D LDL Cholesterol, Calc 70 HDL Cholesterol 47 25-OH Vitamin D Total 44.7 TSH 0.02 L Free T4 0.83 Ur Specific [place] 1.020 Urine Protein NEG Urine Glucose (UA) NEG Urine Blood TRACE Assessment and Plan Assessment & Plan (1) Atherosclerotic cardiovascular disease: Comment: S/P NSTEMI in August 2020 Code(s): I25.10 - Atherosclerotic heart disease of marshall coronary artery without angina pectoris Plan: PCI was not done due to increased risk to the LAD, as well as patient's current hyperthyroid state and will continue aggressive risk reduction for now Continue Aspirin 81 mg QD and Clopidogrel 75 mg QD and Metoprolol 25 mg BID Patient is currently asymptomatic Follow up with cardiology as scheduled (2) Benign essential hypertension: Code(s): I10 - Essential (primary) hypertension Plan: Reinforced low sodium diet - goal is systolic BP of at least 130 to 140 mm Continue Hydrochlorothiazide 25 mg QD and Metoprolol 25 mg BID (3) Pure hypercholesterolemia: Code(s): E78.00 - Pure hypercholesterolemia, unspecified Plan: Results of her labs done a couple of days ago reviewed and discussed with patient Reinforced low cholesterol diet Continue Atorvastatin 20 mg QD Will recheck her labs in 3 months for follow up (4) Hyperthyroidism: Code(s): E05.90 - Thyrotoxicosis, unspecified without thyrotoxic crisis or storm Plan: Used to take Levothyroxine for hypothyroidism but was reportedly found to have high T4 and T3 level during her hospitalization back in August 2020 when she had her NSTEMI - Levothyroxine was discontinued and patient was started instead on Methimazole 10 mg QD Was seen by endocrinology recently and patient was reportedly advised to cut her Methimazole in half and get her labs done and will be seeing her for a follow up visit in the next 1 to 2 weeks (5) Impaired fasting glucose: Code(s): R73.01 - Impaired fasting glucose Plan: Her FBS is at 100 mg/dl on her recent labs but in-office HgbA1c done today is at 6.1% Have advised patient that this puts her in borderline diabetes category Reinforced low calorie diet/exercise as tolerated/lose weight Will continue to monitor her HgbA1c regularly (6) Vitamin D deficiency: Code(s): E55.9 - Vitamin D deficiency, unspecified Plan: Continue Vitamin D3 1000 units daily (7) GERD without esophagitis: Code(s): K21.9 - Gastro-esophageal reflux disease without esophagitis Plan: Dietary restrictions reinforced (8) Osteoarthritis of hands, bilateral: Code(s): M19.041 - Primary osteoarthritis, right hand; M19.042 - Primary osteoarthritis, left hand Qualifiers: Osteoarthritis type: primary Qualified Code(s): M19.041 - Primary osteoarthritis, right hand; M19.042 - Primary osteoarthritis, left hand Plan: X-rays of both hands done back in January 2020 showed (+) mild OA changes in both hands and fingers Is advised on regular hand and finger exercises to help manage her pain and reduce her joint stiffness (9) PMS (premenstrual syndrome): Code(s): N94.3 - Premenstrual tension syndrome Plan: Continue Fluoxetine 10 mg QD (10) Primary insomnia: Code(s): F51.01 - Primary insomnia Plan: Sleep hygiene reinforced Continue Trazodone 50 mg Q HS PRN Plan Patient declined flu vaccine today Follow up in 3 months Orders: Orders Free T4 (Free Thyroxine) 3 Months E03.9 - Hypothyroidism, unspecified UA CC w/rflx Micro + Cult 3 Months I10 - Essential (primary) hypertension Influenza [id number] Immunization 03/03/21 Z23 - Encounter for immunization AMB Hemoglobin A1c 03/03/21 Z13.9 - Encounter for screening, unspecified Complete Blood Count Auto Diff 3 Months I10 - Essential (primary) hypertension Comprehensive [place]. Panel Fast 3 Months E78.00 - Pure hypercholesterolemia, unspecified Lipid Panel 3 Months E78.00 - Pure hypercholesterolemia, unspecified Thyroid Stimulating Hormone 3 Months E03.9 - Hypothyroidism, unspecified Vitamin D 25-OH Total 3 Months E55.9 - Vitamin D deficiency, unspecified Coding Level of Care Code Est Pt Level 4 (38624) Diagnoses Atherosclerotic cardiovascular disease I25.10 Benign essential hypertension I10 Pure hypercholesterolemia E78.00 Hyperthyroidism E05.90 Impaired fasting glucose R73.01 Vitamin D deficiency E55.9 GERD without esophagitis K21.9 Primary osteoarthritis of both hands M19.041; M19.042 Osteoarthritis type: primary PMS (premenstrual syndrome) N94.3 Primary insomnia F51.01 Additional Codes PHQ-9 - 30417 - PHQ-9 Billing: Yes ([id number])
== END 2021-03-03 15:13 | disposition home or self-care (01) ==
LOC: HO.HMGH 14:23
PROVIDERS: PCP Internal Medicine; Visit Provider Internal Medicine
DX: I25.10 Atherosclerotic heart disease of native coronary artery without angina pectoris (principal); I10 Essential (primary) hypertension; E78.00 Pure hypercholesterolemia, unspecified; E05.90 Thyrotoxicosis, unspecified without thyrotoxic crisis or storm; R73.01 Impaired fasting glucose; E55.9 Vitamin D deficiency, unspecified; K21.9 Gastro-esophageal reflux disease without esophagitis; M19.041 Primary osteoarthritis, right hand; M19.042 Primary osteoarthritis, left hand; N94.3 Premenstrual tension syndrome; F51.01 Primary insomnia
CPT/HCPCS: 99214

== ENCOUNTER 2021-06-03 08:31 | Outpatient (REF) | payer MEDICARE, OTHER, SELFPAY ==
[2021-06-03 08:50] LABS: MANUAL DIFF FLAG NO
[2021-06-03 09:09] LABS: Basophils Absolute Auto 0.1 X10*3/uL (0.0-0.2); Basophils Percent Auto 0.7 % (0-2); Eosinophils Absolute Auto 0.2 X10*3/uL (0.0-0.4); Eosinophils Percent Auto 2.4 % (0-4); Hematocrit 41.8 % (37.0-47.0); Imm Gran Abs Auto 0.02 X10*3/uL (0.00-0.03); Imm Gran Pct Auto 0.3 % (0.0-0.4); Lymphocytes Absolute Auto 2.6 X10*3/uL (1.2-4.9); Lymphocytes Percent Auto 34.7 % (20-40); Mean Corpuscular HGB Conc 33.5 g/dl (31.0-35.0); Mean Corpuscular Hemoglobin 30.4 pg (27.0-33.0); Mean Corpuscular Volume 90.9 fL (80.0-98.0); Monocytes Absolute Auto 0.7 X10*3/uL (0.1-1.2); Monocytes Percent Auto 9.7 % (2-11); Neutrophils Percent Auto 52.2 % (45-73); Platelet Count 287 X10*3/uL (160-400); Red Cell Distribution Width 12.9 % (11.0-16.0); White Blood Count 7.6 X10*3/uL (4.8-10.8)
[2021-06-03 09:24] LABS: Alanine Aminotransferase 17 U/L (0-31); Albumin Level 3.8 g/dL (3.5-5.0); Alkaline Phosphatase 111 U/L (39-117); Anion Gap 8 (12-20); Aspartate Amino Transferase 17 U/L (5-31); Bilirubin Total 0.6 mg/dL (0.0-1.0); Blood Urea Nitrogen 12 mg/dL (9-16); Calcium 9.6 mg/dL (8.4-10.2); Carbon Dioxide 36 mmol/L (22-29); Chloride 102 mmol/L (96-108); Cholesterol 132 mg/dL; Estimated Glomerular Filt Rate > 60; Glucose Fasting 100 mg/dL (60-99); HDL Cholesterol 50 mg/dL; LDL Cholesterol Calculated 62 mg/dl; Potassium 4.6 mmol/L (3.3-5.1); Sodium 141 mmol/L (135-145); Total Protein 6.8 g/dL (6.5-8.0); Triglycerides 103 mg/dL
[2021-06-03 09:42] LABS: Free T4 (Free Thyroxine) 0.74 ng/dL (0.71-1.85); Thyroid Stimulating Hormone < 0.01 uIU/mL (0.32-4.0); Vitamin D 25-OH Total 39.9 ng/mL (>30)
[2021-06-03 10:06] LABS: Appearance Urine CLEAR; Color Urine YELLOW; Glucose Urine UA NEG (NEG); Leukocyte Esterase Urine NEG (NEG); Nitrite Urine NEG (NEG); PH 7.5 (5.0-8.0); Specific Gravity - Urine 1.015 (1.005-1.025); UACC Culture Trigger NO; Urine Blood TRACE (NEG); Urine Ketones NEG (NEG); Urine Protein 1+ MG/DL (NEG-TRACE)
[2021-06-03 10:28] LABS: Squamous Epithelial Cell Urine 2+ /LPF; WBC Urine 0 /HPF (0-4)
== END 2021-06-03 08:32 | disposition home or self-care (01) ==
LOC: HO.LAB 08:31
PROVIDERS: PCP Internal Medicine; Visit Provider Internal Medicine
DX: E78.00 Pure hypercholesterolemia, unspecified (principal); E03.9 Hypothyroidism, unspecified; E55.9 Vitamin D deficiency, unspecified; I10 Essential (primary) hypertension
CPT/HCPCS: 36415; 80053; 80061; 81001; 81003; 82306; 84439; 84443; 85025

== ENCOUNTER → 2021-06-15 12:39 | Outpatient (BNVA) | payer MEDICARE, OTHER, SELFPAY | PROVIDERS: PCP Internal Medicine; Referring Provider Internal Medicine; Visit Provider Internal Medicine | DX: I25.10 Atherosclerotic heart disease of native coronary artery without angina pectoris (principal); I71.2 Thoracic aortic aneurysm, without rupture; I10 Essential (primary) hypertension; I25.2 Old myocardial infarction; Z79.02 Long term (current) use of antithrombotics/antiplatelets; Z79.82 Long term (current) use of aspirin; Z79.899 Other long term (current) drug therapy | CPT/HCPCS: 99212 ==

== ENCOUNTER → 2021-07-26 08:29 | Outpatient (REF) | payer MEDICARE, OTHER, SELFPAY ==
--- NOTE | 2021-07-26 08:33 | CA_ITS ---
Transthoracic Echocardiogram Patient (Last, First, Middle): Bernice Jauregui A Gender: Female Date of : 1955 Age: 66 Procedure Date: 07/26/2021 Procedure Type: Transthoracic Echocardiogram Location: OP Height: 167.64 cm Weight: 64.41 kg BSA: 1.73 m2 Heart Rate: bpm BP: 142 / 86 mmHg Change Number Operator: HELADIO Referring MD: Gil Khoury MD Symptoms: I71.2 - Thoracic aortic aneurysm, without rupture Study Quality: Fair ECG Rhythm: Sinus Conclusions: - The left ventricular systolic function is normal. The calculated ejection fraction is 69% by biplane method. - Trace to mild aortic regurgitation. - There is mild dilatation of the ascending aorta measuring 4.00 cm and no dilatation of the aortic arch measuring 3.30 cm. Findings Left Ventricle Normal left ventricular cavity size. There is normal left ventricular wall thickness. The left ventricular systolic function is normal. The calculated ejection fraction is 69% by biplane method. There is no evidence of regional wall motion abnormalities. Diastolic function is normal for age. Right Ventricle Normal right ventricular cavity size and systolic function. Atria Both atria are normal in size. Aortic Valve There is a normal trileaflet aortic valve. There is no aortic valve stenosis. Trace to mild aortic regurgitation. Mitral Valve There is mild mitral annular calcification. There is trace mitral valve regurgitation. There is no mitral valve stenosis. Pulmonic Valve The pulmonic valve was not well visualized. Tricuspid Valve There is mild tricuspid valve regurgitation. The pulmonary artery systolic pressure is normal. Great Vessels There is mild dilatation of the ascending aorta measuring 4.00 cm and no dilatation of the aortic arch measuring 3.30 cm. Venous The inferior vena cava is normal in size and collapses greater than 50% with inspiration. Pericardium/Pleural There is no evidence of pericardial effusion. Prior Study Comparison No significant change compared to prior study dated: 07/20/2020. Minimal change in ascending aortic size, but that could also be technical. Measurements 2D Linear Measurements IVSd: 0.83 0.6-0.9/0.6-1.0 cm LVIDd: 4.60 3.9-5.3/4.2-5.9 cm LVIDd Index: 2.66 2.4-3.2/2.2-3.1 cm/m2 LVIDs: 2.72 2.0-3.6 cm LVPWd: 0.85 0.7-1.1 cm Ao Root: 3.40 2.1-3.5 cm LA Diam: 3.90 2.7-3.8/3.0-4.0 cm LAIDs Index: 2.25 1.5-2.3 cm/m2 LV Mass: 155.86 67-162/88-224 g LV Mass Index: 90.09 43-95/49-115 g/m2 LVOT Diam: 2.00 3.0+(-)1.3 cm 2D Systolic Function EF 4C: 69.20 >55% EF 2C: 68.50 >55% EF BiP: 68.60 >55% Mitral Valve MV Pk E: 0.68 MV PK A: 0.81 MV Decel Time: 327.00 E/A: 0.80 E'Lateral: 10.80 E'Medial: 6.96 E/E' Med: 9.80 E/E' Lat: 6.30 PHT: 96.00 MVA PHT: 2.29 Decel Caldwell: 2.08 Aortic Valve AoV Pk Randall: 1.45 AoV Mn Randall: 0.92 AoV VTI: 0.31 AoV Pk Grad: 8.00 Aov Mn Grad: 4.00 RODOLFO Cont.VTI: 3.46 AI Pk Randall: 4.32 AI Caldwell: 1.02 LVOT LVOT Pk Randall: 1.57 LVOT Mn Randall: 1.01 LVOT VTI: 0.34 LVOT Pk Grad: 10.00 LVOT Mn Grad: 5.00 LVOT Diam: 2.00 LVOT Area: 3.14 Diastolic Function MV Pk E: 0.68 MV Pk A: 0.81 E/A: 0.80 E'Medial: 6.96 E/E' Med: 9.80 E' Laterial: 10.80 E/E' Lat: 6.30 Right Ventricle TAPSE (mm): 23.60 TVS' Randall: 10.40 Tricuspid Valve TR Pk Randall: 2.20 TR Pk Grad: 19.00 RA Press: 3.00 RVSP: 22.00 Great Vessels Aorta Ao Root-2D: 3.40 2.0-3.7 cm Ao Asc: 4.00 2.1-3.4 cm Ao Arch: 3.30 Updated in Other Vendor System with Status of Final Gil Khoury MD electronically signed on 07/27/2021 12:37:05 PM with status of Final
== END ==
LOC: HO.CARD 08:29
PROVIDERS: PCP Internal Medicine; Visit Provider Internal Medicine
DX: I71.2 Thoracic aortic aneurysm, without rupture (principal)
CPT/HCPCS: 93306

== ENCOUNTER 2021-10-29 07:17 | Outpatient (REF) | payer MEDICARE, OTHER, SELFPAY ==
[2021-10-29 07:30] LABS: MANUAL DIFF FLAG NO
[2021-10-29 08:07] LABS: Basophils Absolute Auto 0.1 X10*3/uL (0.0-0.2); Eosinophils Absolute Auto 0.3 X10*3/uL (0.0-0.4); Eosinophils Percent Auto 4.2 % (0-4); Hematocrit 43.7 % (37.0-47.0); Hemoglobin 14.6 g/dl (12.0-16.0); Imm Gran Abs Auto 0.02 X10*3/uL (0.00-0.03); Imm Gran Pct Auto 0.3 % (0.0-0.4); Lymphocytes Absolute Auto 3.1 X10*3/uL (1.2-4.9); Lymphocytes Percent Auto 41.9 % (20-40); Mean Corpuscular HGB Conc 33.4 g/dl (31.0-35.0); Mean Corpuscular Hemoglobin 30.9 pg (27.0-33.0); Mean Corpuscular Volume 92.4 fL (80.0-98.0); Mean Platelet Volume 10.2 fL (9.4-12.3); Monocytes Absolute Auto 0.8 X10*3/uL (0.1-1.2); Monocytes Percent Auto 10.5 % (2-11); Neutrophils Absolute Auto 3.1 x10*3/uL (2.0-8.3); Neutrophils Percent Auto 42.1 % (45-73); Platelet Count 265 X10*3/uL (160-400); Red Blood Count 4.73 X10*6/uL (4.20-5.50); Red Cell Distribution Width 12.5 % (11.0-16.0); White Blood Count 7.3 X10*3/uL (4.8-10.8)
[2021-10-29 08:16] LABS: Estimated Average Glucose 126 mg/dL
[2021-10-29 08:38] LABS: Alanine Aminotransferase 14 U/L (0-31); Albumin Level 4.1 g/dL (3.5-5.0); Alkaline Phosphatase 98 U/L (39-117); Anion Gap 9 (12-20); Aspartate Amino Transferase 18 U/L (5-31); Bilirubin Total 0.8 mg/dL (0.0-1.0); Blood Urea Nitrogen 16 mg/dL (9-16); Carbon Dioxide 35 mmol/L (22-29); Chloride 101 mmol/L (96-108); Cholesterol 151 mg/dL; Estimated Glomerular Filt Rate > 60; Glucose Fasting 101 mg/dL (60-99); HDL Cholesterol 47 mg/dL; LDL Cholesterol Calculated 84 mg/dl; Potassium 4.3 mmol/L (3.3-5.1); Sodium 141 mmol/L (135-145); Total Protein 7.3 g/dL (6.5-8.0); Triglycerides 104 mg/dL
[2021-10-29 08:53] LABS: Vitamin D 25-OH Total 43.8 ng/mL (>30)
[2021-10-29 10:03] LABS: Appearance Urine HAZY; Color Urine YELLOW; Glucose Urine UA NEG (NEG); Leukocyte Esterase Urine TRACE (NEG); Nitrite Urine NEG (NEG); PH 6.5 (5.0-8.0); Specific Gravity - Urine 1.015 (1.005-1.025); UACC Culture Trigger NO; Urine Blood 1+ (NEG); Urine Ketones NEG (NEG); Urine Protein NEG (NEG-TRACE)
[2021-10-29 10:09] LABS: Renal Epithelial Cells Urine 1+ /LPF; Squamous Epithelial Cell Urine 2+ /LPF
== END 2021-10-29 07:18 | disposition home or self-care (01) ==
LOC: HO.LAB 07:17
PROVIDERS: PCP Internal Medicine; Visit Provider Internal Medicine
DX: I10 Essential (primary) hypertension (principal); E78.00 Pure hypercholesterolemia, unspecified; E55.9 Vitamin D deficiency, unspecified; R73.01 Impaired fasting glucose
CPT/HCPCS: 36415; 80053; 80061; 81001; 81003; 82306; 83036; 85025

== ENCOUNTER 2021-12-15 12:21 | Outpatient (REF) | payer MEDICARE, OTHER, SELFPAY ==
--- NOTE | ~2021-12-15 | US_ITS ---
EXAMINATION: US RETROPERITONEAL LIMITED (RENAL ONLY) CLINICAL INFORMATION: Hematuria. COMPARISON: CT abdomen 09/15/2007. TECHNIQUE: Real-time imaging of the kidneys. FINDINGS: RIGHT KIDNEY: 9.9 x 5.3 x 4.1 cm (SAG x AP x TRV). The kidney is normal in size, contour, and echogenicity. Renal cortical thickness is normal. No renal calculi or hydronephrosis. Small simple 0.6 cm cyst in the lower pole which no imaging follow-up is recommended. LEFT KIDNEY: 11.0 x 4.7 x 4.5 cm (SAG x AP x TRV). The kidney is normal in size, contour, and echogenicity. Renal cortical thickness is normal. No calculi or focal parenchymal lesions. No hydronephrosis. US/US renal BI IMPRESSION: No acute sonographic abnormality.
== END 2021-12-15 12:22 | disposition home or self-care (01) ==
LOC: HO.US 12:21
PROVIDERS: Visit Provider Nurse Practitioner Family
DX: R31.9 Hematuria, unspecified (principal)
CPT/HCPCS: 76775

== ENCOUNTER → 2022-01-26 10:48 | Outpatient (BNVA) | payer MEDICARE, OTHER, SELFPAY | PROVIDERS: PCP Internal Medicine; Referring Provider Internal Medicine; Visit Provider Internal Medicine | DX: I25.10 Atherosclerotic heart disease of native coronary artery without angina pectoris (principal); I10 Essential (primary) hypertension; E78.5 Hyperlipidemia, unspecified; I71.2 Thoracic aortic aneurysm, without rupture; Z79.899 Other long term (current) drug therapy | CPT/HCPCS: 93005; 99212 ==

== ENCOUNTER 2022-02-22 08:02 | Outpatient (REF) | payer MEDICARE, OTHER, SELFPAY ==
[2022-02-22 08:14] LABS: MANUAL DIFF FLAG NO
[2022-02-22 08:20] LABS: Basophils Absolute Auto 0.1 X10*3/uL (0.0-0.2); Basophils Percent Auto 0.7 % (0-2); Eosinophils Absolute Auto 0.2 X10*3/uL (0.0-0.4); Eosinophils Percent Auto 3.2 % (0-4); Hematocrit 44.4 % (37.0-47.0); Hemoglobin 15.2 g/dl (12.0-16.0); Imm Gran Abs Auto 0.01 X10*3/uL (0.00-0.03); Imm Gran Pct Auto 0.1 % (0.0-0.4); Lymphocytes Absolute Auto 2.9 X10*3/uL (1.2-4.9); Mean Corpuscular HGB Conc 34.2 g/dl (31.0-35.0); Mean Corpuscular Hemoglobin 31.2 pg (27.0-33.0); Mean Corpuscular Volume 91.2 fL (80.0-98.0); Mean Platelet Volume 9.9 fL (9.4-12.3); Monocytes Absolute Auto 0.7 X10*3/uL (0.1-1.2); Neutrophils Absolute Auto 3.1 x10*3/uL (2.0-8.3); Platelet Count 277 X10*3/uL (160-400); Red Blood Count 4.87 X10*6/uL (4.20-5.50); Red Cell Distribution Width 12.9 % (11.0-16.0); White Blood Count 6.9 X10*3/uL (4.8-10.8)
[2022-02-22 08:31] LABS: Estimated Average Glucose 126 mg/dL
[2022-02-22 08:52] LABS: Appearance Urine Cloudy; Color Urine Dark Yellow; Glucose Urine UA Negative (Negative); Leukocyte Esterase Urine Small (1+) (Negative); Nitrite Urine Negative (Negative); PH 5.5 (5.0-9.0); Specific Gravity - Urine 1.025 (1.005-1.025); UMIC TRIGGER UACC YES; Urine Blood Moderate (2+) (Negative); Urine Ketones Trace mg/dL (Negative); Urine Protein 30 (1+) mg/dL (Neg-Trace)
[2022-02-22 08:58] LABS: Bacteria Urine Trace (None Seen); Hyaline Casts Urine 0-2 /LPF (0-2); Squamous Epithelial Cell Urine >20 /HPF (0-2); UACC Culture Trigger YES
[2022-02-22 09:14] LABS: Alanine Aminotransferase 16 U/L (0-31); Albumin Level 4.3 g/dL (3.5-5.0); Alkaline Phosphatase 98 U/L (39-117); Anion Gap 15 (12-20); Aspartate Amino Transferase 18 U/L (5-31); Bilirubin Total 0.7 mg/dL (0.0-1.0); Blood Urea Nitrogen 15 mg/dL (9-16); Calcium 9.8 mg/dL (8.4-10.2); Carbon Dioxide 31 mmol/L (22-29); Chloride 103 mmol/L (96-108); Cholesterol 161 mg/dL; Estimated Glomerular Filt Rate > 60; Glucose Fasting 101 mg/dL (60-99); HDL Cholesterol 53 mg/dL; LDL Cholesterol Calculated 83 mg/dl; Potassium 4.8 mmol/L (3.3-5.1); Sodium 144 mmol/L (135-145); Total Protein 7.5 g/dL (6.5-8.0); Triglycerides 126 mg/dL
[2022-02-22 09:35] LABS: TSH reflex Free T4 0.05 uIU/mL (0.32-4.0)
[2022-02-22 10:55] LABS: Free T4 (Free Thyroxine) 1.04 ng/dL (0.71-1.85)
== END 2022-02-22 08:03 | disposition home or self-care (01) ==
LOC: HO.LAB 08:02
PROVIDERS: PCP Internal Medicine; Visit Provider Nurse Practitioner Family
DX: E05.90 Thyrotoxicosis, unspecified without thyrotoxic crisis or storm (principal); E78.00 Pure hypercholesterolemia, unspecified; R31.9 Hematuria, unspecified; E11.9 Type 2 diabetes mellitus without complications; I10 Essential (primary) hypertension
CPT/HCPCS: 36415; 80053; 80061; 81001; 83036; 84439; 84443; 85025; 87086

== ENCOUNTER 2022-07-04 08:47 | Outpatient (REF) | payer MEDICARE, OTHER, SELFPAY ==
[2022-07-04 09:02] LABS: MANUAL DIFF FLAG NO
[2022-07-04 09:30] LABS: Basophils Percent Auto 0.5 % (0-2); Eosinophils Absolute Auto 0.1 X10*3/uL (0.0-0.4); Eosinophils Percent Auto 2.3 % (0-4); Hematocrit 40.4 % (37.0-47.0); Hemoglobin 13.6 g/dl (12.0-16.0); Imm Gran Abs Auto 0.01 X10*3/uL (0.00-0.03); Imm Gran Pct Auto 0.2 % (0.0-0.4); Lymphocytes Absolute Auto 2.4 X10*3/uL (1.2-4.9); Mean Corpuscular HGB Conc 33.7 g/dl (31.0-35.0); Mean Corpuscular Hemoglobin 29.8 pg (27.0-33.0); Mean Corpuscular Volume 88.6 fL (80.0-98.0); Mean Platelet Volume 10.7 fL (9.4-12.3); Monocytes Absolute Auto 0.7 X10*3/uL (0.1-1.2); Monocytes Percent Auto 13.3 % (2-11); Neutrophils Absolute Auto 2.3 x10*3/uL (2.0-8.3); Neutrophils Percent Auto 40.7 % (45-73); Platelet Count 288 X10*3/uL (160-400); Red Blood Count 4.56 X10*6/uL (4.20-5.50); Red Cell Distribution Width 11.9 % (11.0-16.0); White Blood Count 5.6 X10*3/uL (4.8-10.8)
[2022-07-04 09:35] LABS: Estimated Average Glucose 131 mg/dL; Hemoglobin A1c % 6.2 %
[2022-07-04 09:37] LABS: Appearance Urine Cloudy; Color Urine Dark Yellow; Glucose Urine UA Negative (Negative); Leukocyte Esterase Urine Moderate (2+) (Negative); Nitrite Urine Negative (Negative); PH 5.5 (5.0-9.0); Specific Gravity - Urine >= 1.030 (1.005-1.025); UMIC TRIGGER UACC YES; Urine Blood Small (1+) (Negative); Urine Ketones Trace mg/dL (Negative); Urine Protein 30 (1+) mg/dL (Neg-Trace)
[2022-07-04 09:59] LABS: Bacteria Urine Trace (None Seen); Hyaline Casts Urine 0-2 /LPF (0-2); UACC Culture Trigger YES
[2022-07-04 10:00] LABS: Alanine Aminotransferase 33 U/L (0-31); Albumin Level 3.5 g/dL (3.5-5.0); Alkaline Phosphatase 92 U/L (39-117); Anion Gap 13 (12-20); Aspartate Amino Transferase 30 U/L (5-31); Blood Urea Nitrogen 15 mg/dL (9-16); Carbon Dioxide 32 mmol/L (22-29); Chloride 102 mmol/L (96-108); Cholesterol 99 mg/dL; Estimated Glomerular Filt Rate > 60; Glucose Fasting 109 mg/dL (60-99); HDL Cholesterol 34 mg/dL; LDL Cholesterol Calculated 49 mg/dl; Potassium 4.1 mmol/L (3.3-5.1); Sodium 143 mmol/L (135-145); Total Protein 6.2 g/dL (6.5-8.0); Triglycerides 83 mg/dL
[2022-07-04 10:24] LABS: Free T4 (Free Thyroxine) 2.66 ng/dL (0.71-1.85); Thyroid Stimulating Hormone < 0.01 uIU/mL (0.32-4.0); Vitamin D 25-OH Total 43.1 ng/mL (>30)
== END 2022-07-04 08:48 | disposition home or self-care (01) ==
LOC: HO.LAB 08:47
PROVIDERS: Nurse Practitioner Family; PCP Internal Medicine; Visit Provider Internal Medicine
DX: E55.9 Vitamin D deficiency, unspecified (principal); R73.01 Impaired fasting glucose; E05.90 Thyrotoxicosis, unspecified without thyrotoxic crisis or storm; I10 Essential (primary) hypertension; E78.00 Pure hypercholesterolemia, unspecified; R82.90 Unspecified abnormal findings in urine
CPT/HCPCS: 36415; 80053; 80061; 81001; 82306; 83036; 84439; 84443; 85025; 87086

== ENCOUNTER → 2022-09-13 09:47 | Outpatient (BNVA) | payer MEDICARE, OTHER, SELFPAY | PROVIDERS: PCP Internal Medicine; Visit Provider Nurse Practitioner Family | DX: R31.9 Hematuria, unspecified (principal); N28.1 Cyst of kidney, acquired | CPT/HCPCS: 99202 ==

== ENCOUNTER 2022-10-04 07:19 | Outpatient (REF) | payer MEDICARE, OTHER, SELFPAY ==
[2022-10-04 08:40] LABS: Appearance Urine Clear; Color Urine Yellow; Glucose Urine UA Negative (Negative); Leukocyte Esterase Urine Trace (Negative); Nitrite Urine Negative (Negative); PH 6.5 (5.0-9.0); Specific Gravity - Urine >= 1.030 (1.005-1.025); UMIC TRIGGER UACC YES; Urine Blood Trace (Negative); Urine Ketones Negative (Negative); Urine Protein 30 (1+) mg/dL (Neg-Trace)
[2022-10-04 08:46] LABS: Bacteria Urine None Seen (None Seen); Hyaline Casts Urine 0-2 /LPF (0-2); WBC Urine 0-5 /HPF (0-5)
[2022-10-04 10:59] LABS: Estimated Average Glucose 123 mg/dL; Hemoglobin A1c % 5.9 %
[2022-10-04 11:40] LABS: Alanine Aminotransferase 22 U/L (0-31); Albumin Level 4.2 g/dL (3.5-5.0); Alkaline Phosphatase 104 U/L (39-117); Anion Gap 12 (12-20); Aspartate Amino Transferase 24 U/L (5-31); Bilirubin Total 0.9 mg/dL (0.0-1.0); Blood Urea Nitrogen 18 mg/dL (9-16); Calcium 9.5 mg/dL (8.4-10.2); Carbon Dioxide 32 mmol/L (22-29); Chloride 101 mmol/L (96-108); Cholesterol 169 mg/dL; Estimated Glomerular Filt Rate > 60; Glucose Fasting 87 mg/dL (60-99); HDL Cholesterol 69 mg/dL; LDL Cholesterol Calculated 83 mg/dl; Potassium 3.9 mmol/L (3.3-5.1); Sodium 141 mmol/L (135-145); Total Protein 7.3 g/dL (6.5-8.0); Triglycerides 89 mg/dL
== END 2022-10-04 07:20 | disposition home or self-care (01) ==
LOC: HO.LAB 07:19
PROVIDERS: PCP Internal Medicine; Visit Provider Nurse Practitioner Family
DX: R73.01 Impaired fasting glucose (principal); I10 Essential (primary) hypertension; I25.10 Atherosclerotic heart disease of native coronary artery without angina pectoris
CPT/HCPCS: 36415; 80053; 80061; 81001; 83036

== ENCOUNTER 2023-01-02 13:19 | Outpatient (REF) | payer MEDICARE, OTHER, SELFPAY ==
--- NOTE | ~2023-01-02 | US_ITS ---
EXAMINATION: US THYROID CLINICAL INFORMATION: Thyrotoxicosis. COMPARISON: None available. TECHNIQUE: Linear transducer grayscale and color Doppler examination with attention to the region of the thyroid. FINDINGS: SIZE: Measurements of the thyroid lobes and nodules are given in sagittal, anteroposterior and transverse dimensions respectively. Right Thyroid Lobe: 5.3 x 2.5 x 1.9 cm, volume 13.2 mL. Parenchyma: The gland echotexture is heterogeneous. Thyroid vascularity is increased. Left Thyroid Lobe: 6.1 x 2.5 x 2.2 cm, volume 17.5 mL. Parenchyma: The gland echotexture is heterogeneous. Thyroid vascularity is increased. Isthmus: 1.1 cm in maximum AP dimension. Estimated total number of nodules greater than or equal to 1 cm: None. Washroom Operator nodules are described as follows: 1. Location: Right lower pole. Size: 0.4 x 0.3 x 0.3 cm, volume 0.02 mL. Nodule characteristics: Composition: Solid (2). Echogenicity: Hyperechoic (1). Shape: Wide Margins: Ill-defined (0). Echogenic Foci: None ACR TI-RADS total points: 3 ACR TI-RADS category: TR3 2. Location: Left lower pole. Size: 0.5 x 0.3 x 0.4 cm, volume 0.04 mL. Nodule characteristics: Composition: Solid (2). Echogenicity: Hyperechoic (1). Shape: Wide Margins: Ill-defined (0). Echogenic Foci: Punctate echogenic foci (3). ACR TI-RADS total points: 6 ACR TI-RADS category: TR4 NODES: Multiple lymph nodes seen bilaterally. The largest right lymph node measures 2.2 x 0.7 x 1.3 cm.. Largest left lymph node measures 1.2 x 0.6 x 0.9 cm. US/US thyroid IMPRESSION: Enlarged heterogeneous hypervascular thyroid gland. Subcentimeter nonsuspicious nodules. ACR TI-RADS RECOMMENDATION REFERENCE: Ultrasound-guided fine-needle aspiration, followup ultrasound, no further follow up. * TR1 (0 point) and TR2 (2 points): No FNA or follow up. * TR3 (3 points): FNA if more than or equal to 2.5 cm in maximum dimension, followup ultrasound in 1, 3 and 5 years if 1.5 to 2.4 cm in maximum dimension. * TR4 (4-6 points): FNA if more than or equal to 1.5 cm in maximum dimension, followup ultrasound in 1, 2, 3 and 5 years if 1 to 1.4 cm in maximum dimension. * TR5 (more than or equal to 7 points): FNA if more than or equal to 1 cm in maximum dimension, followup ultrasound every year for 5 years if 0.5 to 0.9 cm in maximum dimension. * TR3, TR4 or TR5 nodules that are below the size threshold for followup receive no follow up.
== END 2023-01-02 13:20 | disposition home or self-care (01) ==
LOC: HO.US 13:19
PROVIDERS: PCP Internal Medicine; Visit Provider Internal Medicine
DX: E05.90 Thyrotoxicosis, unspecified without thyrotoxic crisis or storm (principal)
CPT/HCPCS: 76536

== ENCOUNTER → 2023-01-16 13:36 | Outpatient (REF) | payer MEDICARE, OTHER, SELFPAY ==
--- NOTE | 2023-01-16 13:39 | CA_ITS ---
Transthoracic Echocardiogram Patient (Last, First, Middle): Bernice Jauregui A Gender: Female Date of : 1955 Age: 67 Procedure Date: 01/16/2023 Procedure Type: Transthoracic Echocardiogram Location: OP Height: 167.64 cm Weight: 56.7 kg BSA: 1.64 m2 Heart Rate: 70 bpm BP: 120 / 68 mmHg Client Application Support Engineer: SB Referring MD: Gil Khoury MD Symptoms: I71.2 - Thoracic aortic aneurysm, without rupture Study Quality: Adequate ECG Rhythm: Sinus Conclusions: - The left ventricular systolic function is hyperdynamic. The visually estimated ejection fraction is >70%. - There is mild calcification of the aortic valve. - Trace to mild aortic regurgitation. - There is mild mitral annular calcification. - There is mild dilatation of the ascending aorta measuring 4.00 cm. Findings Left Ventricle Normal left ventricular cavity size. There is normal left ventricular wall thickness. The left ventricular systolic function is hyperdynamic. The visually estimated ejection fraction is >70%. There is no evidence of regional wall motion abnormalities. Diastolic function is normal for age. Right Ventricle Normal right ventricular cavity size and systolic function. Atria Both atria are normal in size. Aortic Valve There is a normal trileaflet aortic valve. There is mild calcification of the aortic valve. There is no aortic valve stenosis. Trace to mild aortic regurgitation. Mitral Valve There is mild mitral annular calcification. There is no mitral valve regurgitation. There is no mitral valve stenosis. Pulmonic Valve The pulmonic valve is likely normal. Tricuspid Valve There is mild tricuspid valve regurgitation. There is no evidence of pulmonary hypertension. Great Vessels There is mild dilatation of the ascending aorta measuring 4.00 cm. Venous The inferior vena cava is normal in size and collapses greater than 50% with inspiration. Pericardium/Pleural There is no evidence of pericardial effusion. Prior Study Comparison No significant change compared to prior study dated: 07/26/2021. Measurements 2D Linear Measurements IVSd: 0.76 0.6-0.9/0.6-1.0 cm LVIDd: 5.07 3.9-5.3/4.2-5.9 cm LVIDd Index: 3.09 2.4-3.2/2.2-3.1 cm/m2 LVIDs: 2.65 2.0-3.6 cm LVPWd: 0.59 0.7-1.1 cm LA Diam: 3.70 2.7-3.8/3.0-4.0 cm LAIDs Index: 2.26 1.5-2.3 cm/m2 LV Mass: 139.91 67-162/88-224 g LV Mass Index: 85.31 43-95/49-115 g/m2 LVOT Diam: 2.00 3.0+(-)1.3 cm 2D Systolic Function EF 4C: 74.50 >55% Mitral Valve MV Pk E: 1.19 MV PK A: 0.84 MV Decel Time: 211.00 E/A: 1.40 E'Lateral: 10.70 E'Medial: 6.42 E/E' Med: 18.50 E/E' Lat: 11.10 PHT: 62.00 MVA PHT: 3.55 Decel [place]: 5.64 Aortic Valve AoV Pk Randall: 2.04 AoV Pk Grad: 17.00 RODOLFO: 3.70 AI Pk Randall: 3.88 AI Wagoner: 2.70 LVOT LVOT Pk Randall: 2.07 LVOT Mn Randall: 1.37 LVOT VTI: 0.42 LVOT Pk Grad: 17.00 LVOT Mn Grad: 9.00 LVOT Diam: 2.00 LVOT Area: 3.14 Diastolic Function MV Pk E: 1.19 MV Pk A: 0.84 E/A: 1.40 E'Medial: 6.42 E/E' Med: 18.50 E' Laterial: 10.70 E/E' Lat: 11.10 Right Ventricle TAPSE (mm): 26.40 TVS' Randall: 13.10 Tricuspid Valve TR Pk Randall: 2.75 TR Pk Grad: 30.00 RA Press: 3.00 RVSP: 33.00 Great Vessels Aorta Sinus of Valsalva: 3.00 2.0-3.5 cm Ao Asc: 4.00 2.1-3.4 cm Pulmonary Veins Pulm Vein S/D 1.30 Pulmonary Valve PV Pk Randall: 1.06 Peak PV Grad: 4.00 Updated in Other Vendor System with Status of Final Gil Khoury MD electronically signed on 01/17/2023 12:00:19 PM with status of Final
== END ==
LOC: HO.CARD 13:36
PROVIDERS: PCP Internal Medicine; Visit Provider Internal Medicine
DX: I71.20 Thoracic aortic aneurysm, without rupture, unspecified (principal)
CPT/HCPCS: 93306

== ENCOUNTER → 2023-01-16 13:39 | Outpatient (BNV) | payer MEDICARE, OTHER, SELFPAY | PROVIDERS: PCP Internal Medicine; Visit Provider Internal Medicine | DX: I71.20 Thoracic aortic aneurysm, without rupture, unspecified (principal) | CPT/HCPCS: 93306 ==

== ENCOUNTER 2023-01-26 10:22 | Outpatient (AMB) | payer MEDICARE, OTHER, SELFPAY ==
--- NOTE | 2023-01-26 10:29 | A.OFFVIS_ITS ---
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 [employer] Required: No Accompanied by: Self / Same As Patient Allergies Sulfa (Sulfonamide Antibiotics) [SULFA (SULFONAMIDE ANTIBIOTICS)] Allergy (Unknown, Verified 01/26/23 10:33) unknown Medication List - Last Reconciled 01/26/23 by Gil Khoury MD aspirin 81 mg PO DAILY atorvastatin 80 mg PO DAILY cholecalciferol (vitamin D3) (Vitamin D3) 25 mcg PO DAILY ezetimibe (Zetia) 10 mg PO DAILY fluoxetine 10 mg PO QAM hydrochlorothiazide 25 mg PO QAM hydroxyzine HCl 25 mg PO TID PRN losartan 25 mg PO DAILY methimazole 10 mg PO DAILY metoprolol tartrate 25 mg PO BID HPI HPI Comments History of Present Illness Details Bernice returns for follow-up regarding coronary artery disease. In 2020, she was hospitalized for non ST elevation myocardial infarction. She underwent cardiac catheterization that showed diagonal disease but not intervened. Currently on medical therapy only. She was also hyperthyroid at that time and was felt that it may have precipitated the NSTEMI. She has hypertension, hyperlipidemia as well as strong family history. Her mother had bypass surgery. Overall, no specific cardiac complaints. No angina or shortness of breath or in fact anything cardiac symptoms. FOR[facility], [facility] Medical History Acquired hypothyroidism Ascending aortic aneurysm Atherosclerotic cardiovascular disease Benign essential hypertension GERD without esophagitis Hyperthyroidism Impaired fasting glucose NSTEMI (non-ST elevation myocardial infarction) Osteoarthritis of hands, bilateral PMS (premenstrual syndrome) Primary insomnia Pure hypercholesterolemia Vitamin D deficiency Surgical History History of cardiac catheterization (~08/2020) Family History Father Medical history unknown Mother Hypertension CVD (cardiovascular disease) Breast cancer metastasized to bone Social History Housing: House Alcohol intake: current Alcohol intake frequency: holidays/special occasions only Patient Tobacco Use Status: Former Tobacco user e-Cigarette/Vaping Use: Never Used Second Hand Smoke Exposure: Yes service: No Current occupational status: retired Cognitive needs: No Hearing needs: No Vision needs: No Review of Systems Const Denies chills, Denies fatigue, Denies fever(s), Denies frequent falls, Denies weakness, Denies weight gain and Denies weight loss ENT Denies dizziness Card Denies chest pain, Denies leg edema, Denies lightheadedness, Denies palpitations, Denies dyspnea, Denies dyspnea on exertion, Denies orthopnea and Denies other (Loss of consciousness) Resp Denies cough, Denies dyspnea and Denies dyspnea on exertion GI Denies hematochezia and Denies change in bowel habits Musc Denies abnormal gait, Denies muscle weakness, Denies numbness, Denies radiating pain into limb and Denies tingling Neuro Denies abnormal gait, Denies dizziness, Denies frequent falls, Denies numbness, Denies tingling and Denies weakness Endo Denies fatigue and Denies palpitations Physical Exam Vital Signs: Last Vital Signs Pulse 61 01/26/23 10:30 BP 128/76 01/26/23 10:30 BMI result Body Mass Index 19.5 Const General: comfortable and no acute distress Orientation/consciousness: patient oriented x3 HEENT Other: Unremarkable Head: Yes normal to inspection Neck Neck: Yes normal visual inspection Chest Chest palpation & inspection: normal inspection of the chest Resp Auscultation: clear to auscultation bilaterally Cardio Palpation: normal PMI Heart sounds: S1 normal heart sound present, S2 normal heart sound present, no gallops, Murmur heart sound present systolic II/ and at the right sternal border and no rubs GI Palpation (GI): Soft to palpation Back/Spine/Pelvis Other: unremarkable Skin General skin exam: no rashes or lesions noted Neuro General: patient oriented x3 Extrem General: Yes normal to inspection Psych Mental Status: mental status grossly normal Office Procedures EKG Details: EKG with sinus rhythm at 61/Min; no significant ST-T changes and otherwise unremarkable[place] [id number], Complete Assessment & Plan Assessment & Plan (1) Atherosclerotic cardiovascular disease: Comment: S/P NSTEMI in August 2020 Code(s): I25.10 - Atherosclerotic heart disease of [place] coronary artery without angina pectoris Plan: Cardiac catheterization data reviewed from 08/2020. She has ostial diagonal disease, medically treated. Continue aspirin. Continue beta-blockers and high-dose statins. LDLs are fairly regulated. They range from 40s to 80s. In June, it was 49 mg dL. In September, 83 mg dL. Overall, has been up and down over the last few years. No changes. (2) Ascending aortic aneurysm: Code(s): I71.2 - Thoracic aortic aneurysm, without rupture Plan: Measures 4 cm on echocardiogram. Stable. Can be monitored periodically. Probably recheck in 2 years. (3) Benign essential hypertension: Code(s): I10 - Essential (primary) hypertension Plan: On losartan, hydrochlorothiazide, metoprolol. Stable. Medications: Changed From hydroxyzine HCl 25 mg PO TID 30 days PRN 90 tabs 0RF anxiety To hydroxyzine HCl 25 mg PO TID PRN Coding Level of Care Code Est Pt Level 4 (81595) Diagnoses Atherosclerotic cardiovascular disease I25.10 Ascending aortic aneurysm I71.2 Benign essential hypertension I10 CPT Codes EKG - CPT: 42971-[id number], Complete ([id number])
[2023-01-26 10:30] VITALS: BP 128/76; PULSE 61; BMI 19.5
== END 2023-01-26 10:50 | disposition home or self-care (01) ==
PROVIDERS: PCP Internal Medicine; Referring Provider Internal Medicine; Visit Provider Internal Medicine
DX: I25.10 Atherosclerotic heart disease of native coronary artery without angina pectoris (principal); I71.20 Thoracic aortic aneurysm, without rupture, unspecified; I10 Essential (primary) hypertension
CPT/HCPCS: 93010; 99214

== ENCOUNTER → 2023-01-26 10:22 | Outpatient (BNVA) | payer MEDICARE, OTHER, SELFPAY | PROVIDERS: PCP Internal Medicine; Referring Provider Internal Medicine; Visit Provider Internal Medicine | DX: I25.10 Atherosclerotic heart disease of native coronary artery without angina pectoris (principal); I71.20 Thoracic aortic aneurysm, without rupture, unspecified; I10 Essential (primary) hypertension; I25.2 Old myocardial infarction; Z79.82 Long term (current) use of aspirin; Z79.899 Other long term (current) drug therapy | CPT/HCPCS: 93005; 99212 ==

== ENCOUNTER 2023-02-03 08:01 | Outpatient (REF) | payer MEDICARE, OTHER, SELFPAY ==
[2023-02-03 08:36] LABS: MANUAL DIFF FLAG NO
[2023-02-03 09:40] LABS: Basophils Percent Auto 0.5 % (0-2); Eosinophils Absolute Auto 0.3 X10*3/uL (0.0-0.4); Eosinophils Percent Auto 3.5 % (0-4); Hematocrit 43.1 % (37.0-47.0); Hemoglobin 14.3 g/dl (12.0-16.0); Imm Gran Abs Auto 0.03 X10*3/uL (0.00-0.03); Imm Gran Pct Auto 0.4 % (0.0-0.4); Lymphocytes Absolute Auto 3.1 X10*3/uL (1.2-4.9); Lymphocytes Percent Auto 41.7 % (20-40); Mean Corpuscular HGB Conc 33.2 g/dl (31.0-35.0); Mean Corpuscular Hemoglobin 29.5 pg (27.0-33.0); Mean Corpuscular Volume 88.9 fL (80.0-98.0); Mean Platelet Volume 10.5 fL (9.4-12.3); Monocytes Absolute Auto 0.5 X10*3/uL (0.1-1.2); Monocytes Percent Auto 6.2 % (2-11); Neutrophils Absolute Auto 3.5 x10*3/uL (2.0-8.3); Neutrophils Percent Auto 47.7 % (45-73); Platelet Count 352 X10*3/uL (160-400); Red Blood Count 4.85 X10*6/uL (4.20-5.50); Red Cell Distribution Width 12.9 % (11.0-16.0); White Blood Count 7.4 X10*3/uL (4.8-10.8)
[2023-02-03 09:42] LABS: Appearance Urine Clear; Color Urine Dark Yellow; Glucose Urine UA Negative (Negative); Leukocyte Esterase Urine Trace (Negative); Nitrite Urine Negative (Negative); UMIC TRIGGER UACC YES; Urine Blood Negative (Negative); Urine Ketones Negative (Negative); Urine Protein Negative (Neg-Trace)
[2023-02-03 09:46] LABS: Bacteria Urine None Seen (None Seen); Hyaline Casts Urine 0-2 /LPF (0-2); Squamous Epithelial Cell Urine 0-2 /HPF (0-2); WBC Urine 0-5 /HPF (0-5)
[2023-02-03 09:48] LABS: Estimated Average Glucose 111 mg/dL; Hemoglobin A1c % 5.5 % (<6.0)
[2023-02-03 10:32] LABS: Alanine Aminotransferase 20 U/L (0-31); Albumin Level 3.7 g/dL (3.5-5.0); Alkaline Phosphatase 118 U/L (39-117); Anion Gap 9 (12-20); Aspartate Amino Transferase 19 U/L (5-31); Bilirubin Total 0.6 mg/dL (0.0-1.0); Blood Urea Nitrogen 12 mg/dL (9-16); Calcium 9.9 mg/dL (8.4-10.2); Carbon Dioxide 32 mmol/L (22-29); Chloride 103 mmol/L (96-108); Cholesterol 149 mg/dL (<200); Estimated Glomerular Filt Rate > 60; Glucose Fasting 89 mg/dL (60-99); HDL Cholesterol 58 mg/dL (>40); LDL Cholesterol Calculated 72 mg/dL (<100); Potassium 4.3 mmol/L (3.3-5.1); Sodium 140 mmol/L (135-145); Triglycerides 96 mg/dL (<150)
[2023-02-03 10:35] LABS: Free T4 (Free Thyroxine) 0.44 ng/dL (0.71-1.85); Thyroid Stimulating Hormone < 0.01 uIU/mL (0.32-4.0); Vitamin D 25-OH Total 49.2 ng/mL (>30)
== END 2023-02-03 08:02 | disposition home or self-care (01) ==
LOC: HO.LAB 08:01
PROVIDERS: PCP Internal Medicine; Visit Provider Internal Medicine
DX: E05.90 Thyrotoxicosis, unspecified without thyrotoxic crisis or storm (principal); E55.9 Vitamin D deficiency, unspecified; R73.01 Impaired fasting glucose; E78.00 Pure hypercholesterolemia, unspecified; I10 Essential (primary) hypertension
CPT/HCPCS: 36415; 80053; 80061; 81001; 82306; 83036; 84439; 84443; 85025

== ENCOUNTER 2023-02-06 12:34 | Outpatient (AMB) | payer MEDICARE, OTHER, SELFPAY ==
[2023-02-06 12:49] VITALS: BP 128/64; PULSE 57; O2SAT 98; BMI 19.3
--- NOTE | 2023-02-06 12:49 | MHC.PC.OV ---
Vital Signs 02/06/23 12:49 Height 5 ft 7 in Weight 123 lb 0.2 oz BMI 19.3 BP 128/64 Blood Pressure Location Lt brachial Position Sitting Pulse 57 Pulse Source Pulse Oximeter Temp Source Skin Pulse Oximetry (%) 98 Oxygen Delivery Method Room Air Intake Visit Reasons: CAD, hyperthyroidism, hyperlipidemia, IFG Allergies Sulfa (Sulfonamide Antibiotics) [SULFA (SULFONAMIDE ANTIBIOTICS)] Allergy (Unknown, Verified 02/06/23 14:00) unknown Medication List - Last Reconciled 02/06/23 by Todd Weston MD aspirin 81 mg PO DAILY atorvastatin 80 mg PO DAILY cholecalciferol (vitamin D3) (Vitamin D3) 25 mcg PO DAILY ezetimibe (Zetia) 10 mg PO DAILY fluoxetine 10 mg PO QAM hydrochlorothiazide 25 mg PO QAM hydroxyzine HCl 25 mg PO TID PRN losartan 25 mg PO DAILY methimazole 10 mg PO DAILY metoprolol tartrate 25 mg PO BID Tobacco use date assessed: 02/06/23 Fall risk assessment: No Falls in past year Last assessed Fall Risk: 02/06/23 Dental Screening Dental Screen Date: 02/06/23 Did you have a dental visit in the last 12 months?: Yes Did you have a dental problem in the last 6 months where you did not have access to dental care?: No Was dental information given to patient?: Patient has dentist HPI CAD, hyperthyroidism, hyperlipidemia, IFG HPI Details Patient comes in today for her follow up visit States that she has lost a lot of weight lately and has also been losing her hair - thinks that these have to do with the medication for her thyroid that [facility] recently switched her to Relates that she feels fatigued often lately Denies any fever, headaches or dizziness Denies any chest pains, no SOB No nausea/vomiting, no abdominal pain No change in bowel habits noted Had her follow up labs done a few days ago - to discuss her results [facility] Medical History Hyperthyroidism NSTEMI (non-ST elevation myocardial infarction) Ascending aortic aneurysm Atherosclerotic cardiovascular disease Primary insomnia PMS (premenstrual syndrome) Osteoarthritis of hands, bilateral GERD without esophagitis Vitamin D deficiency Impaired fasting glucose Acquired hypothyroidism Pure hypercholesterolemia Benign essential hypertension Surgical History History of cardiac catheterization (~08/2020) Family History Father Medical history unknown Mother Hypertension CVD (cardiovascular disease) Breast cancer metastasized to bone Social History Housing: House Alcohol intake: current Alcohol intake frequency: holidays/special occasions only Patient Tobacco Use Status: Former Tobacco user e-Cigarette/Vaping Use: Never Used Second Hand Smoke Exposure: Yes service: No Current occupational status: retired Cognitive needs: No Hearing needs: No Vision needs: No Questionnaire Thrive Questionnaire Date Thrive assessed: 10/05/22 AUDIT C Alcohol Use Questionnaire (AUDIT-C) 1. How often do you have a drink containing alcohol?: Monthly or less 2. How many drinks containing alcohol do you have on a typical day when you are drinking?: 1 or 2 3. How often do you have six or more drinks on one occasion?: Never Total Score: 1 Score Reviewed/Action Taken: Yes YOVANY-7 AMB Questionnaire YOVANY-7 Date YOVANY - 7 assessed: 10/05/22 Source: Developed by Drs. Jj Watt, Irene Tapia, Ariel Cabrales and colleagues, with an educational piero from [employer]. Review of Systems Const Reports fatigue, Denies fever(s), Denies headache(s) and Reports weight loss ENT Denies dysphagia, Denies dizziness, Denies otalgia, Denies headache(s), Denies odynophagia and Denies sore throat Card Denies chest pain, Denies palpitations and Denies dyspnea Resp Denies cough and Denies dyspnea GI Denies abdominal pain, Denies constipation, Denies dysphagia, Denies heartburn, Denies diarrhea, Denies nausea, Denies odynophagia and Denies vomiting Denies difficulty voiding, Denies nocturia and Denies dysuria Skin/Breast Reports alopecia (recently) Neuro Denies dizziness and Denies headache(s) Endo Reports fatigue and Denies palpitations Physical exam (Primary Care) Vital Signs: Last Vital Signs Pulse 57 02/06/23 12:49 BP 128/64 02/06/23 12:49 Pulse Ox 98 02/06/23 12:49 Oxygen Delivery Method Room Air 02/06/23 12:49 BMI result Body Mass Index 19.3 Tobacco/Smoking Status: Tobacco use Status Tobacco use date assessed 02/06/23 02/06/23 12:53 Patient Tobacco Use Status Former Tobacco user 02/06/23 12:53 e-Cigarette/Vaping Use Never Used 02/06/23 12:53 Thrive Assessment: Date of Thrive Assessment Date Thrive assessed 10/05/22 02/06/23 12:53 Const General: no acute distress and alert HENMT Ears: TM's normal bilaterally and EAC's normal Throat: Yes posterior oropharynx normal and Yes tonsils normal (no TP congestion noted) Neck Neck: Yes no lymphadenopathy and Yes supple Resp Auscultation: clear to auscultation bilaterally, no rales and no wheezes Cardio Rate: regular rate Rhythm: regular rhythm Heart sounds: no murmurs GI Palpation (GI): Soft to palpation and nontender Auscultation: normal bowel sounds Extrem General: Yes no clubbing, cyanosis or edema Assessment and Plan Assessment & Plan (1) Atherosclerotic cardiovascular disease: Comment: S/P NSTEMI in August 2020 Code(s): I25.10 - Atherosclerotic heart disease of [place] coronary artery without angina pectoris Plan: Patient currently remains asymptomatic PCI was not done back when she has NSTEMI in 08/2020 due to increased risk to the LAD, as well as patient's hyperthyroid state at the time Continue with aggressive risk reduction Continue Aspirin 81 mg QD and Metoprolol 25 mg BID; has been OFF Clopidogrel for a while now Follow up with cardiology as scheduled (2) Pure hypercholesterolemia: Code(s): E78.00 - Pure hypercholesterolemia, unspecified Plan: Results of her labs done a few days ago reviewed and discussed with patient Reinforced low cholesterol diet Continue Atorvastatin 20 mg QD Will recheck her labs and fasting lipids in 4 months for follow up (3) Benign essential hypertension: Code(s): I10 - Essential (primary) hypertension Plan: Reinforced low sodium diet - goal is systolic BP of at least 130 to 140 mm or less Continue Hydrochlorothiazide 25 mg QD and Metoprolol 25 mg BID (4) Ascending aortic aneurysm: Code(s): I71.2 - Thoracic aortic aneurysm, without rupture Qualifiers: Presence of rupture: without rupture Qualified Code(s): I71.21 - Aneurysm of the ascending aorta, without rupture Plan: (+) Thoracic aortic aneurysm - stable on last echocardiogram in 06/2021; measurement was at 4.0 cm at the ascending aorta Follow-up with cardiology as scheduled and will have repeat imaging studies again in a couple of years for follow up (5) Hyperthyroidism: Code(s): E05.90 - Thyrotoxicosis, unspecified without thyrotoxic crisis or storm Plan: Used to take Levothyroxine for hypothyroidism but was found to have high T4 and T3 level during her hospitalization back in August 2020 when she had her NSTEMI - Levothyroxine was discontinued and patient was started on Methimazole She has been diagnosed since with autoimmune hyperthyroidism/Grave's disease Continue Methimazole 10 mg TID - dose was previously held but she is now back on Rx at TID dosing and has been advised to consider thyroidectomy for potential long-term cure although she will require lifelong thyroid hormone supplement thereafter Follow up with [facility] as scheduled (6) Vitamin D deficiency: Code(s): E55.9 - Vitamin D deficiency, unspecified Plan: Continue Vitamin D3 1000 units QD (7) Impaired fasting glucose: Code(s): R73.01 - Impaired fasting glucose Plan: HgbA1c has improved to 5.5% on her labs done a few days ago; was at 5.9% previously Reinforced low calorie diet/exercise as tolerated Will continue to monitor her HgbA1c regularly (8) GERD without esophagitis: Code(s): K21.9 - Gastro-esophageal reflux disease without esophagitis Plan: Dietary restrictions reinforced (9) Osteoarthritis of hands, bilateral: Code(s): M19.041 - Primary osteoarthritis, right hand; M19.042 - Primary osteoarthritis, left hand Qualifiers: Osteoarthritis type: primary Qualified Code(s): M19.041 - Primary osteoarthritis, right hand; M19.042 - Primary osteoarthritis, left hand Plan: X-rays of both hands done back in January 2020 showed (+) mild OA changes in both hands and fingers She is reminded to continue with regular hand and finger exercises to help manage her pain and reduce her joint stiffness (10) PMS (premenstrual syndrome): Code(s): N94.3 - Premenstrual tension syndrome Plan: Continue Fluoxetine 10 mg QD (11) Primary insomnia: Code(s): F51.01 - Primary insomnia Plan: Sleep hygiene reinforced Continue Trazodone 50 mg Q HS PRN Plan Follow up in 4 months Orders: Orders Comprehensive Palmer. Panel Fast 4 Months E78.00 - Pure hypercholesterolemia, unspecified Lipid Panel 4 Months E78.00 - Pure hypercholesterolemia, unspecified Thyroid Stimulating Hormone 4 Months E05.90 - Thyrotoxicosis, unspecified without thyrotoxic crisis or storm Hemoglobin A1c 4 Months R73.01 - Impaired fasting glucose Vitamin D 25-OH Total 4 Months E55.9 - Vitamin D deficiency, unspecified Complete Blood Count Auto Diff 4 Months I10 - Essential (primary) hypertension Free T4 (Free Thyroxine) 4 Months E05.90 - Thyrotoxicosis, unspecified without thyrotoxic crisis or storm UA CC w/rflx Micro + Cult 4 Months R30.0 - Dysuria Coding Level of Care Code Est Pt Level 4 (13101) Diagnoses Atherosclerotic cardiovascular disease I25.10 Pure hypercholesterolemia E78.00 Benign essential hypertension I10 Aneurysm of ascending aorta without rupture I71.21 Presence of rupture: without rupture Hyperthyroidism E05.90 Vitamin D deficiency E55.9 Impaired fasting glucose R73.01 GERD without esophagitis K21.9 Primary osteoarthritis of both hands M19.041; M19.042 Osteoarthritis type: primary PMS (premenstrual syndrome) N94.3 Primary insomnia F51.01
== END 2023-02-06 13:52 | disposition home or self-care (01) ==
PROVIDERS: PCP Internal Medicine; Visit Provider Internal Medicine
DX: I10 Essential (primary) hypertension (principal); I71.21 Aneurysm of the ascending aorta, without rupture; E05.90 Thyrotoxicosis, unspecified without thyrotoxic crisis or storm; E55.9 Vitamin D deficiency, unspecified; I25.10 Atherosclerotic heart disease of native coronary artery without angina pectoris; E78.00 Pure hypercholesterolemia, unspecified; R73.01 Impaired fasting glucose; K21.9 Gastro-esophageal reflux disease without esophagitis; M19.041 Primary osteoarthritis, right hand; M19.042 Primary osteoarthritis, left hand; N94.3 Premenstrual tension syndrome; F51.01 Primary insomnia
CPT/HCPCS: 99214

== ENCOUNTER 2023-06-06 08:21 | Outpatient (REF) | payer MEDICARE, OTHER, SELFPAY ==
[2023-06-06 08:44] LABS: MANUAL DIFF FLAG NO
[2023-06-06 09:15] LABS: Basophils Absolute Auto 0.1 X10*3/uL (0.0-0.2); Basophils Percent Auto 0.9 % (0-2); Eosinophils Absolute Auto 0.2 X10*3/uL (0.0-0.4); Eosinophils Percent Auto 2.8 % (0-4); Hematocrit 45.1 % (37.0-47.0); Imm Gran Abs Auto 0.01 X10*3/uL (0.00-0.03); Imm Gran Pct Auto 0.1 % (0.0-0.4); Lymphocytes Absolute Auto 3.1 X10*3/uL (1.2-4.9); Lymphocytes Percent Auto 45.9 % (20-40); Mean Corpuscular HGB Conc 33.3 g/dl (31.0-35.0); Mean Corpuscular Hemoglobin 30.4 pg (27.0-33.0); Mean Corpuscular Volume 91.5 fL (80.0-98.0); Mean Platelet Volume 10.1 fL (9.4-12.3); Monocytes Absolute Auto 0.4 X10*3/uL (0.1-1.2); Monocytes Percent Auto 6.4 % (2-11); Neutrophils Percent Auto 43.9 % (45-73); Platelet Count 266 X10*3/uL (160-400); Red Blood Count 4.93 X10*6/uL (4.20-5.50); Red Cell Distribution Width 14.1 % (11.0-16.0); White Blood Count 6.8 X10*3/uL (4.8-10.8)
[2023-06-06 09:23] LABS: Appearance Urine Clear; Color Urine Dark Yellow; Glucose Urine UA Negative (Negative); Leukocyte Esterase Urine Small (1+) (Negative); Nitrite Urine Negative (Negative); PH 6.5 (5.0-9.0); Specific Gravity - Urine 1.025 (1.005-1.025); UMIC TRIGGER UACC YES; Urine Blood Trace (Negative); Urine Ketones Trace mg/dL (Negative); Urine Protein Trace mg/dL (Neg-Trace)
[2023-06-06 09:28] LABS: Estimated Average Glucose 123 mg/dL; Hemoglobin A1c % 5.9 % (<6.0)
[2023-06-06 09:30] LABS: Bacteria Urine None Seen (None Seen); Hyaline Casts Urine 0-2 /LPF (0-2); UACC Culture Trigger YES
[2023-06-06 10:04] LABS: Alanine Aminotransferase 11 U/L (0-31); Alkaline Phosphatase 107 U/L (39-117); Anion Gap 11 (12-20); Aspartate Amino Transferase 16 U/L (5-31); Bilirubin Total 0.7 mg/dL (0.0-1.0); Blood Urea Nitrogen 12 mg/dL (9-16); Calcium 9.5 mg/dL (8.4-10.2); Carbon Dioxide 33 mmol/L (22-29); Chloride 102 mmol/L (96-108); Cholesterol 149 mg/dL (<200); Estimated Glomerular Filt Rate > 60; Glucose Fasting 96 mg/dL (60-99); HDL Cholesterol 62 mg/dL (>40); LDL Cholesterol Calculated 74 mg/dL (<100); Potassium 3.8 mmol/L (3.3-5.1); Sodium 142 mmol/L (135-145); Total Protein 7.2 g/dL (6.5-8.0); Triglycerides 68 mg/dL (<150)
[2023-06-06 10:12] LABS: Free T4 (Free Thyroxine) < 0.42 ng/dL (0.71-1.85); Thyroid Stimulating Hormone 34.61 uIU/mL (0.32-4.0); Vitamin D 25-OH Total 35.3 ng/mL (>30)
[2023-06-08 02:04] LABS: Triiodothyronine T3 Total 65 ng/dL (76-181)
[2023-06-08 09:33] LABS: Thyroid Peroxidase Antibodies 244 IU/mL (<9)
[2023-06-12 15:43] LABS: Thyroid Stimulating Immunoglob 483 % baseline (<140)
== END 2023-06-06 08:22 | disposition home or self-care (01) ==
LOC: HO.LAB 08:21
PROVIDERS: PCP Internal Medicine; Visit Provider Internal Medicine
DX: R79.89 Other specified abnormal findings of blood chemistry (principal); E05.90 Thyrotoxicosis, unspecified without thyrotoxic crisis or storm; R30.0 Dysuria; E55.9 Vitamin D deficiency, unspecified; E78.00 Pure hypercholesterolemia, unspecified; R73.01 Impaired fasting glucose; I10 Essential (primary) hypertension
CPT/HCPCS: 36415; 80053; 80061; 81001; 82306; 83036; 84439; 84443; 84445; 84480; 85025; 86376; 87086

== ENCOUNTER 2023-06-08 11:31 | Outpatient (AMB) | payer MEDICARE, OTHER, SELFPAY ==
[2023-06-08 11:32] VITALS: BP 134/78; PULSE 57; O2SAT 96; BMI 21.5
--- NOTE | 2023-06-08 11:32 | A.OFFPC_ITS ---
Vital Signs 06/08/23 11:32 Height 5 ft 7 in Weight 137 lb 2 oz BMI 21.5 BP 134/78 Blood Pressure Location Lt brachial Position Sitting Pulse 57 Pulse Source Pulse Oximeter Pulse Oximetry (%) 96 Oxygen Delivery Method Room Air Intake Visit Reasons: hyperthyroidism, CAD, hyperlipidemia, IFG Fruit Picker Required: No Accompanied by: Self / Same As Patient Allergies Sulfa (Sulfonamide Antibiotics) [SULFA (SULFONAMIDE ANTIBIOTICS)] Allergy (Unknown, Verified 06/08/23 12:22) unknown Medication List - Last Reconciled 06/08/23 by Todd Weston MD aspirin 81 mg PO DAILY atorvastatin 80 mg PO DAILY cholecalciferol (vitamin D3) (Vitamin D3) 25 mcg PO DAILY ezetimibe (Zetia) 10 mg PO DAILY fluoxetine 10 mg PO QAM hydrochlorothiazide 25 mg PO QAM hydroxyzine HCl 25 mg PO TID PRN losartan 25 mg PO DAILY methimazole 10 mg PO DAILY metoprolol tartrate 25 mg PO BID Tobacco use date assessed: 06/08/23 Fall risk assessment: No Falls in past year Last assessed Fall Risk: 06/08/23 Dental Screening Dental Screen Date: 06/08/23 Did you have a dental visit in the last 12 months?: Yes Did you have a dental problem in the last 6 months where you did not have access to dental care?: No Was dental information given to patient?: Patient has dentist HPI hyperthyroidism, CAD, hyperlipidemia, IFG HPI Details Patient comes in today for her follow up visit States that she has been feeling very tired lately and would like to know how her thyroid came out on her recent labs States that she feels okay otherwise She denies any headaches or dizziness Denies any chest pains, no SOB No nausea/vomiting, no abdominal pain No change in bowel habits noted Needs her Atorvastatin Rx refilled Had her follow up labs done a couple of days ago - to discuss her results [facility] Medical History Hyperthyroidism NSTEMI (non-ST elevation myocardial infarction) Ascending aortic aneurysm Atherosclerotic cardiovascular disease Primary insomnia PMS (premenstrual syndrome) Osteoarthritis of hands, bilateral GERD without esophagitis Vitamin D deficiency Impaired fasting glucose Acquired hypothyroidism Pure hypercholesterolemia Benign essential hypertension Surgical History History of cardiac catheterization (~08/2020) Family History Father Medical history unknown Mother Hypertension CVD (cardiovascular disease) Breast cancer metastasized to bone Social History Housing: House Alcohol intake: current Alcohol intake frequency: holidays/special occasions only Patient Tobacco Use Status: Former Tobacco user e-Cigarette/Vaping Use: Never Used Second Hand Smoke Exposure: Yes service: No Current occupational status: retired Cognitive needs: No Hearing needs: No Vision needs: No Questionnaire PHQ-9 Over the last 2 weeks, how often have you been bothered by any of the following problems? 1. Little interest or pleasure in doing things: not at all 2. Feeling down, depressed, or hopeless: not at all 3. Trouble falling or staying asleep, or sleeping too much: not at all 4. Feeling tired or having little energy: not at all 5. Poor appetite or overeating: not at all 6. Feeling bad about yourself - or that you are a failure or have let yourself or your family down: not at all 7. Trouble concentrating on things, such as reading the newspaper or watching television: not at all 8. Moving or speaking so slowly that other people could have noticed. Or the opposite - being so fidgety or restless that you have been moving around a lot more than usual: not at all 9. Thoughts that you would be better off or of hurting yourself in some way: not at all Total score: 0 Depression Screening Interpretation: Negative Depression Screening Done: Yes 97025 - PHQ-9 Billing: Yes Source: Developed by Drs. Jj Watt, Irene Tapia, Ariel Cabrales and colleagues, with an educational piero from [employer]. Thrive Questionnaire Date Thrive assessed: 06/08/23 I am a: Patient What is your living situation today?: I have a steady place to live Within the past 12 months, did the food you bought not last and you didn't have the money to get more?: Never true Within the past 12 months, did you worry whether your food would run out before you got money to buy more?: Never true Do you have trouble paying for medicines?: No Do you have trouble getting transportation to medical appointments?: No Do you have trouble paying your heating and electricity bill?: No Do you have trouble taking care of your child, family member or friend?: No Do you have trouble with day-to-day activities such as bathing, preparing meals, shopping, managing finances, etc.?: No Are you currently unemployed and looking for a job?: No Are you interested in more education?: No Please select the resources that you would like help with: None Currently or been in a relationship where the following occur: no concerns reported AUDIT C Alcohol Use Questionnaire (AUDIT-C) 1. How often do you have a drink containing alcohol?: Monthly or less 2. How many drinks containing alcohol do you have on a typical day when you are drinking?: 1 or 2 3. How often do you have six or more drinks on one occasion?: Never Total Score: 1 Score Reviewed/Action Taken: Yes YOVANY-7 AMB Questionnaire YOVANY-7 Date YOVANY - 7 assessed: 06/08/23 Feeling nervous, anxious, or on edge: 0 = Not at all Not being able to stop or control worryin = Not at all Worrying too much about different things: 0 = Not at all Trouble relaxin = Not at all Being so restless that it is hard to sit still: 0 = Not at all Becoming easily annoyed or irritable: 0 = Not at all Feeling afraid as if something awful might happen: 0 = Not at all Total YOVANY-7 score (0-4 normal; 5-9 mild; 10-14 moderate; 15-21 severe): 0 Source: Developed by Drs. Jj Watt, Irene Tapia, Ariel Cabrales and colleagues, with an educational piero from [employer]. Review of Systems Const Denies chills, Reports fatigue, Denies fever(s) and Denies headache(s) ENT Denies dysphagia, Denies dizziness, Denies otalgia, Denies headache(s), Denies odynophagia and Denies sore throat Card Denies chest pain, Denies palpitations and Denies dyspnea Resp Denies cough and Denies dyspnea GI Denies abdominal pain, Denies constipation, Denies dysphagia, Denies diarrhea, Denies nausea, Denies odynophagia and Denies vomiting Denies difficulty voiding, Denies nocturia and Denies dysuria Musc Denies back pain Skin/Breast Denies rash Neuro Denies dizziness and Denies headache(s) Endo Reports fatigue and Denies palpitations Physical exam (Primary Care) Vital Signs: Last Vital Signs Pulse 57 06/08/23 11:32 BP 134/78 06/08/23 11:32 Pulse Ox 96 06/08/23 11:32 Oxygen Delivery Method Room Air 06/08/23 11:32 BMI result Body Mass Index 21.5 Tobacco/Smoking Status: Tobacco use Status Tobacco use date assessed 06/08/23 06/08/23 11:34 Patient Tobacco Use Status Former Tobacco user 06/08/23 11:34 e-Cigarette/Vaping Use Never Used 06/08/23 11:34 PHQ-9: PHQ-9 Score PHQ-9: Total score 0 06/08/23 13:58 Depression Screening Interpretation: Negative Thrive Assessment: Date of Thrive Assessment Date Thrive assessed 06/08/23 06/08/23 11:34 Currently or been in a relationship where the following occur: no concerns reported Const General: no acute distress and alert HENMT Ears: TM's normal bilaterally and EAC's normal Throat: Yes posterior oropharynx normal and Yes tonsils normal (no TP congestion noted) Neck Neck: Yes no lymphadenopathy and Yes supple Resp Auscultation: clear to auscultation bilaterally, no rales and no wheezes Cardio Rate: regular rate Rhythm: regular rhythm Heart sounds: no murmurs GI Palpation (GI): Soft to palpation and nontender Auscultation: normal bowel sounds Skin Rashes: no rashes Extrem General: Yes no clubbing, cyanosis or edema Results Reviewed Results Reviewed: Laboratory Tests 06/06/23 06/06/23 06/06/23 08:43 08:43 08:50 WBC 6.8 Hgb 15.0 Hct 45.1 Plt Count 266 Sodium 142 Potassium 3.8 Creatinine 0.79 Estimated GFR > 60 Fasting Glucose 96 Hemoglobin A1c % 5.9 Calcium 9.5 AST 16 ALT 11 Triglycerides 68 Cholesterol 149 LDL Cholesterol, Calc 74 HDL Cholesterol 62 25-OH Vitamin D Total 35.3 TSH 34.61 H Free T4 < 0.42 L Total T3 65 L Urine pH 6.5 Ur Specific [place] 1.025 Urine Protein Trace Urine Glucose (UA) Negative Urine Blood Trace H Thyroid Peroxidase Ab 244 H Assessment and Plan Assessment & Plan (1) Atherosclerotic cardiovascular disease: Comment: S/P NSTEMI in August 2020 Code(s): I25.10 - Atherosclerotic heart disease of [place] coronary artery without angina pectoris Plan: Patient currently remains asymptomatic from a cardiovascular standpoint PCI was not done back when she has NSTEMI in 08/2020 due to increased risk to the LAD, as well as patient's hyperthyroid state at the time Continue with aggressive risk reduction Continue Aspirin 81 mg QD and Metoprolol 25 mg BID; has been OFF Clopidogrel for a while now Follow up with cardiology as scheduled (2) Pure hypercholesterolemia: Code(s): E78.00 - Pure hypercholesterolemia, unspecified Plan: Results of her labs done a couple of days ago reviewed and discussed with patient Reinforced low cholesterol diet Continue Atorvastatin 20 mg QD Will recheck her labs and fasting lipids in 4 months for follow up (3) Benign essential hypertension: Code(s): I10 - Essential (primary) hypertension Plan: Reinforced low sodium diet - goal is systolic BP of at least 130 to 140 mm or less Continue Hydrochlorothiazide 25 mg QD and Metoprolol 25 mg BID (4) Ascending aortic aneurysm: Code(s): I71.2 - Thoracic aortic aneurysm, without rupture Qualifiers: Presence of rupture: without rupture Qualified Code(s): I71.21 - Aneurysm of the ascending aorta, without rupture Plan: (+) Thoracic aortic aneurysm - stable on last echocardiogram in 06/2021; measurement was at 4.0 cm at the ascending aorta Follow-up with cardiology as scheduled and will have repeat imaging studies again in a couple of years (later this year) for follow up (5) Hyperthyroidism: Code(s): E05.90 - Thyrotoxicosis, unspecified without thyrotoxic crisis or storm Plan: Used to take Levothyroxine for hypothyroidism but was found to have high T4 and T3 level during her hospitalization back in August 2020 when she had her NSTEMI - Levothyroxine was discontinued and patient was started on Methimazole She has been diagnosed since with autoimmune hyperthyroidism/Grave's disease Continue Methimazole 10 mg TID - dose was previously held but she is now back on Rx at TID dosing and has been advised to consider thyroidectomy for potential long-term cure although she will require lifelong thyroid hormone supplement thereafter Have advised patient her recent TFTs indicate that she is now hypothyroid and will need to have medication regimen reassessed As she is being followed by endocrinology for this, have advised her to contact endocrinology with her recent numbers and we will leave it up to them to make any changes to her current medications Follow up with [facility] as scheduled (6) Vitamin D deficiency: Code(s): E55.9 - Vitamin D deficiency, unspecified Plan: Continue Vitamin D3 1000 units QD (7) Impaired fasting glucose: Code(s): R73.01 - Impaired fasting glucose Plan: She is cautioned that her HgbA1c has again increased to 5.9% on her recent labs - was previously at 5.5% Advised that this is most likely due to her recent weight gain as she has gained a lot of weight since her last visit Reinforced low calorie diet/exercise as tolerated/lose weight Will continue to monitor her HgbA1c regularly (8) GERD without esophagitis: Code(s): K21.9 - Gastro-esophageal reflux disease without esophagitis Plan: Dietary restrictions reinforced (9) Osteoarthritis of hands, bilateral: Code(s): M19.041 - Primary osteoarthritis, right hand; M19.042 - Primary osteoarthritis, left hand Qualifiers: Osteoarthritis type: primary Qualified Code(s): M19.041 - Primary osteoarthritis, right hand; M19.042 - Primary osteoarthritis, left hand Plan: X-rays of both hands done back in January 2020 showed (+) mild OA changes in both hands and fingers She is reminded to continue with regular hand and finger exercises to help manage her pain and reduce her joint stiffness (10) PMS (premenstrual syndrome): Code(s): N94.3 - Premenstrual tension syndrome Plan: Continue Fluoxetine 10 mg QD (11) Primary insomnia: Code(s): F51.01 - Primary insomnia Plan: Sleep hygiene reinforced Continue Trazodone 50 mg Q HS PRN Plan Follow up in 4 months Medications: Refilled atorvastatin 80 mg PO DAILY 90 tabs 3RF Coding Level of Care Code Est Pt Level 4 (74289) Diagnoses Atherosclerotic cardiovascular disease I25.10 Pure hypercholesterolemia E78.00 Benign essential hypertension I10 Aneurysm of ascending aorta without rupture I71.21 Presence of rupture: without rupture Hyperthyroidism E05.90 Vitamin D deficiency E55.9 Impaired fasting glucose R73.01 GERD without esophagitis K21.9 Primary osteoarthritis of both hands M19.041; M19.042 Osteoarthritis type: primary PMS (premenstrual syndrome) N94.3 Primary insomnia F51.01
== END 2023-06-08 12:37 | disposition home or self-care (01) ==
PROVIDERS: PCP Internal Medicine; Visit Provider Internal Medicine
DX: I25.10 Atherosclerotic heart disease of native coronary artery without angina pectoris (principal); E78.00 Pure hypercholesterolemia, unspecified; I71.21 Aneurysm of the ascending aorta, without rupture; I10 Essential (primary) hypertension; E05.90 Thyrotoxicosis, unspecified without thyrotoxic crisis or storm; E55.9 Vitamin D deficiency, unspecified; R73.01 Impaired fasting glucose; K21.9 Gastro-esophageal reflux disease without esophagitis; M19.041 Primary osteoarthritis, right hand; M19.042 Primary osteoarthritis, left hand; N94.3 Premenstrual tension syndrome; F51.01 Primary insomnia
CPT/HCPCS: 99214

== ENCOUNTER 2023-09-08 12:41 | Outpatient (REF) | payer MEDICARE, OTHER, SELFPAY ==
--- NOTE | ~2023-09-08 | US_ITS ---
EXAMINATION: US RETROPERITONEAL COMPLETE (RENAL) CLINICAL INFORMATION: Hematuria, unspecified. COMPARISON: Renal ultrasound 12/15/2021. TECHNIQUE: Real-time imaging of the kidneys and bladder. FINDINGS: RIGHT KIDNEY: 9.1 x 5.0 x 3.7 cm (SAG x AP x TRV). The kidney is normal in size, contour, and echogenicity. Renal cortical thickness is normal. No hydronephrosis. Benign-appearing cyst measuring 6 mm. Lower pole nonobstructing 2 mm stone. LEFT KIDNEY: 10.7 x 3.9 x 4.5 cm (SAG x AP x TRV). The kidney is normal in size, contour, and echogenicity. Renal cortical thickness is normal. No calculi or focal parenchymal lesions. No hydronephrosis. BLADDER: Well distended and normal. Bilateral ureteral jets are demonstrated. Prevoid bladder volume is 279 mL. Postvoid bladder volume is 14 mL. US/US retroperitoneal comp IMPRESSION: * Benign-appearing right renal cyst. Followup imaging is not routinely recommended for benign appearing cysts. * Nonobstructing right renal nephrolithiasis.
== END 2023-09-08 12:42 | disposition home or self-care (01) ==
LOC: HO.US 12:41
PROVIDERS: Visit Provider Nurse Practitioner Family
DX: R31.9 Hematuria, unspecified (principal); N28.1 Cyst of kidney, acquired
CPT/HCPCS: 76770

== ENCOUNTER 2023-09-14 13:14 | Outpatient (REF) | payer MEDICARE, OTHER, SELFPAY ==
[2023-09-14 16:39] LABS: Urine Cytology See Pathology rpt
== END 2023-09-14 13:15 | disposition home or self-care (01) ==
LOC: HO.LNP 13:14
PROVIDERS: PCP Internal Medicine; Visit Provider Nurse Practitioner Family
DX: R31.29 Other microscopic hematuria (principal); N20.0 Calculus of kidney; N28.1 Cyst of kidney, acquired
CPT/HCPCS: 81003; 88112; 99212

== ENCOUNTER 2023-09-14 13:14 | Outpatient (AMB) | payer MEDICARE, OTHER, SELFPAY ==
--- NOTE | 2023-09-14 13:22 | MHC.OFFVIS ---
Intake Visit Reasons: 1y/US Intake Note: Patient is present for follow up visit for hematuria, simple renal cyst, ,and ultrasound results Imagin09/08/23 Urology Medications: none Blood Thinner: aspirin Relish Blender Required: No Accompanied by: Self / Same As Patient Allergies Sulfa (Sulfonamide Antibiotics) [SULFA (SULFONAMIDE ANTIBIOTICS)] Allergy (Unknown, Verified 09/14/23 15:10) unknown Medication List - Last Reconciled 09/14/23 by ANANT Wylie- aspirin 81 mg PO DAILY atorvastatin 80 mg PO DAILY cholecalciferol (vitamin D3) (Vitamin D3) 25 mcg PO DAILY ezetimibe (Zetia) 10 mg PO DAILY fluoxetine 10 mg PO QAM hydrochlorothiazide 25 mg PO QAM hydroxyzine HCl 25 mg PO TID PRN losartan 25 mg PO DAILY methimazole 10 mg PO DAILY metoprolol tartrate 25 mg PO BID HPI Comments Details: Bernice is a pleasant 68-year-old female patient of Dr. Weston. She has a past medical history of hyperthyroidism, ascending aortic aneurysm, atherosclerotic cardiovascular disease status post NSTEMI August 2020, insomnia, osteoarthritis, GERD, vitamin-D deficiency, hypercholesteremia, and hypertension. She presents to the office today for follow-up. Of note, patient was seen approximately 1 year ago as a new patient for microscopic hematuria at which time a retroperitoneal ultrasound was ordered for further assessment evaluation and discussion regarding further microscopic hematuria workup in the setting of nicotine dependence was discussed. Recent retroperitoneal ultrasound results reviewed with the patient today. Bilateral kidneys with no hydronephrosis. Benign-appearing right renal cysts measuring approximately 6 mm. Right lower nonobstructing 2 mm stone is noted. Left kidney with no calculi, lesions, and or hydronephrosis noted. The bladder is well distended and normal. Bilateral ureteral jets are demonstrated. Pre void bladder volume is approximately 280 mL. Postvoid bladder volume is approximately 15 mL. In discussion with the patient today she reports to be doing and feeling well. She discusses having had a longstanding history of microscopic hematuria and has not found this bothersome. She does have a history of nicotine dependence for approximately 15 years however quit 40 years ago. When asked she does report noting episodes of stress incontinence she otherwise denies urinary urgency, urinary frequency, nocturia, hematuria, dysuria, foul smelling urine, changes to urinary stream, flank pain, fever, and or chills. She is happy with her current voiding parameters. In office urinalysis results reviewed with the patient today. She otherwise offers no other issues or concerns at this time. [facility] Medical History Hyperthyroidism NSTEMI (non-ST elevation myocardial infarction) Ascending aortic aneurysm Atherosclerotic cardiovascular disease Primary insomnia PMS (premenstrual syndrome) Osteoarthritis of hands, bilateral GERD without esophagitis Vitamin D deficiency Impaired fasting glucose Acquired hypothyroidism Pure hypercholesterolemia Benign essential hypertension Surgical History History of cardiac catheterization (~08/2020) Family History Father Medical history unknown Mother Hypertension CVD (cardiovascular disease) Breast cancer metastasized to bone Social History Housing: House Alcohol intake: current Alcohol intake frequency: holidays/special occasions only Patient Tobacco Use Status: Former Tobacco user e-Cigarette/Vaping Use: Never Used Second Hand Smoke Exposure: Yes service: No Current occupational status: retired Cognitive needs: No Hearing needs: No Vision needs: No Review of Systems Eyes Reports no additional complaints ENT Reports no additional complaints Card Reports as per HPI Resp Reports no additional complaints GI Reports as per HPI Reports as per HPI Musc Reports as per HPI Neuro Reports no additional complaints Psych Reports as per HPI Endo Reports as per HPI Sterling/Lymph Reports no additional complaints Aller/Immun Reports no additional complaints Physical Exam Const General: cooperative, healthy appearing, comfortable, no acute distress, well developed, alert and awake Orientation/consciousness: patient oriented x3 Limitations: no limitations HEENT Head: Yes normal to inspection, Yes normocephalic and Yes atraumatic Ears: hearing grossly normal bilaterally Eyes General: appearance normal, both eyes and all related structures Neck Neck: Yes normal visual inspection and Yes trachea midline Chest Chest palpation & inspection: normal inspection of the chest Resp Effort & Inspection: normal respiratory effort and able to speak in complete sentences Cardio Rate: regular rate GI Inspection: Yes normal to inspection General: Yes no CVA tenderness Back/Spine/Pelvis Back: no CVA tenderness Skin General skin exam: no rashes or lesions noted Neuro General: patient oriented x3 Extrem General: Yes normal to inspection Psych Appearance: grossly normal and well kempt Mental Status: mental status grossly normal Speech and movement: Normal speech and movement present and Clear speech present Affect: normal affect Attitude: cooperative Thought process: Normal thought process present Thought content: Normal thought content present Insight: Fair insight present (Psych) Judgement: Fair judgement present (Psych) Results AMB Urinalysis, Automated UA Leukoctes 70 Edgar/uL Last Edit by Deskomelsa Marcus on 09/14/23 13:39 UA Nitrite Negative Last Edit by [employer] on 09/14/23 13:39 UA Urobilinogen 0.2 mg/dL Last Edit by [employer] on 09/14/23 13:39 UA Protein 0 mg/dL Last Edit by [employer] on 09/14/23 13:39 UA pH 6.0 Last Edit by Deskomelsa Marcus on 09/14/23 13:39 UA Blood 10 Erasmo/uL Last Edit by [employer] on 09/14/23 13:39 UA Specific [place] 1.105 Last Edit by [employer] on 09/14/23 13:39 UA Ketone Negative Last Edit by [employer] on 09/14/23 13:39 UA Bilirubin 0 mg/dL Last Edit by [employer] on 09/14/23 13:39 UA Glucose 0 mg/dL Last Edit by [employer] on 09/14/23 13:39 Results Reviewed Results Reviewed: Laboratory Last Values Urine pH (Auto) 6.0 09/14/23 13:24 Specific [place] (Auto) 1.105 09/14/23 13:24 Urine Protein (Auto) 0 mg/dL 09/14/23 13:24 Glucose (UA)(Auto) 0 mg/dL 09/14/23 13:24 Urine Ketones (Auto) Negative 09/14/23 13:24 Urine Blood (Auto) 10 Erasmo/uL 09/14/23 13:24 Urine Nitrite (Auto) Negative 09/14/23 13:24 Urine Bilirubin (Auto) 0 mg/dL 09/14/23 13:24 Urine Urobilinogen (Auto) 0.2 mg/dL 09/14/23 13:24 Leukocyte Esterase (Auto) 70 Edgar/uL 09/14/23 13:24 Date of Service: 09/08/23 EXAMINATION: US RETROPERITONEAL COMPLETE (RENAL) FINDINGS: RIGHT KIDNEY: 9.1 x 5.0 x 3.7 cm (SAG x AP x TRV). The kidney is normal in size, contour, and echogenicity. Renal cortical thickness is normal. No hydronephrosis. Benign-appearing cyst measuring 6 mm. Lower pole nonobstructing 2 mm stone. LEFT KIDNEY: 10.7 x 3.9 x 4.5 cm (SAG x AP x TRV). The kidney is normal in size, contour, and echogenicity. Renal cortical thickness is normal. No calculi or focal parenchymal lesions. No hydronephrosis. BLADDER: Well distended and normal. Bilateral ureteral jets are demonstrated. Prevoid bladder volume is 279 mL. Postvoid bladder volume is 14 mL. IMPRESSION: * Benign-appearing right renal cyst. Followup imaging is not routinely recommended for benign appearing cysts. * Nonobstructing right renal nephrolithiasis. Assessment & Plan Assessment & Plan (1) Microscopic hematuria: Code(s): R31.29 - Other microscopic hematuria Category: Medical (2) Nephrolithiasis: Code(s): N20.0 - Calculus of kidney Category: Medical (3) Renal cyst: Code(s): N28.1 - Cyst of kidney, acquired Category: Medical Plan In office urinalysis results reviewed with the patient today; as noted above; will send for urine cytology. Recent retroperitoneal ultrasound results reviewed with the patient today; as noted above. Discussed at length importance of voiding regularly and not only with sense of urgency. Discussed at length potential causes of microscopic hematuria, renal cysts, and nephrolithiasis; this was discussed at length. Discussed, educated, and stressed the importance of drinking water daily. Discussed adding 1 oz of lemon juice to water daily. Discussed further microscopic hematuria workup with in office cystoscopy however patient declines at this time. Will continue with surveillance monitoring of nephrolithiasis, renal cysts, and microscopic hematuria Patient currently denies any bothersome urinary issues. Patient reports be happy with current voiding parameters. Will obtain renal ultrasound in 1 year Follow-up in 1 year with imaging to be completed prior; or sooner with any issues, concerns, and or questions. Orders: Orders US retroperitoneal comp 1 Year N20.0 - Calculus of kidney, N28.1 - Cyst of kidney, acquired, R31.29 - Other microscopic hematuria AMB Urinalysis Automated Today Z13.9 - Encounter for screening, unspecified Urine Cytology Today R31.9 - Hematuria, unspecified Patient Instructions: The patient had an opportunity to ask questions regarding the treatment plan. All questions were answered. Physical exam, labs, and imaging were discussed and reviewed in detail. As well as risks, benefits, and discussion of treatment choices. No major barriers to understanding were identified. The patient expressed understanding and agreement with the above treatment plan. The patient was made aware they should contact our office by phone for worsening of their current condition, the appearance of new symptoms, or with any questions or concerns. Compliance is encouraged with any medications and follow up testing that is ordered. It is a privilege to be allowed the opportunity to participate in? your urological care.? Again, if you have any questions or concerns If you have any questions or concerns please do not hesitate to contact me. The office is [phone]. This note is constructed using voice recognition software. While every effort has been made to ensure accuracy industrial cleaning technician errors may have been included. Yours sincerely, ANANT Wylie-MARYANN
== END 2023-09-14 13:58 | disposition home or self-care (01) ==
LOC: HO.HUSH 13:14
PROVIDERS: PCP Internal Medicine; Visit Provider Nurse Practitioner Family
DX: R31.29 Other microscopic hematuria (principal); N20.0 Calculus of kidney; N28.1 Cyst of kidney, acquired
CPT/HCPCS: 99213

== ENCOUNTER 2023-10-09 08:31 | Outpatient (REF) | payer MEDICARE, OTHER, SELFPAY ==
[2023-10-09 10:02] LABS: Thyroid Stimulating Hormone < 0.01 uIU/mL (0.32-4.0)
[2023-10-09 10:21] LABS: Appearance Urine Clear; Color Urine Yellow; Glucose Urine UA Negative (Negative); Leukocyte Esterase Urine Trace (Negative); Nitrite Urine Negative (Negative); PH 6.5 (5.0-9.0); Specific Gravity - Urine 1.025 (1.005-1.025); UMIC TRIGGER UACC YES; Urine Blood Trace (Negative); Urine Ketones Negative (Negative); Urine Protein Trace mg/dL (Neg-Trace)
[2023-10-09 10:25] LABS: Bacteria Urine None Seen (None Seen); Hyaline Casts Urine 0-2 /LPF (0-2); WBC Urine 0-5 /HPF (0-5)
== END 2023-10-09 08:32 | disposition home or self-care (01) ==
LOC: HO.LAB 08:31
PROVIDERS: PCP Internal Medicine; Visit Provider Internal Medicine
DX: E05.90 Thyrotoxicosis, unspecified without thyrotoxic crisis or storm (principal); R79.89 Other specified abnormal findings of blood chemistry; R30.0 Dysuria
CPT/HCPCS: 36415; 81001; 81003; 84439; 84443

== ENCOUNTER 2023-10-12 11:59 | Outpatient (AMB) | payer MEDICARE, OTHER, SELFPAY ==
[2023-10-12 12:01] VITALS: BP 160/82; PULSE 75; O2SAT 98; BMI 21.1
--- NOTE | 2023-10-12 12:01 | A.OFFPC_ITS ---
Vital Signs 10/12/23 12:01 Height 5 ft 7 in Weight 135 lb BMI 21.1 BP 160/82 H Blood Pressure Location Lt brachial Position Sitting Pulse 75 Pulse Source Pulse Oximeter Pulse Oximetry (%) 98 Oxygen Delivery Method Room Air Intake Visit Reasons: hyperthyroidism, HTN, hyperlipidemia Allergies Sulfa (Sulfonamide Antibiotics) [SULFA (SULFONAMIDE ANTIBIOTICS)] Allergy (Unknown, Verified 10/12/23 12:29) unknown Medication List - Last Reconciled 10/12/23 by Todd Weston MD aspirin 81 mg PO DAILY atorvastatin 80 mg PO DAILY cholecalciferol (vitamin D3) (Vitamin D3) 25 mcg PO DAILY ezetimibe (Zetia) 10 mg PO DAILY fluoxetine 10 mg PO QAM hydrochlorothiazide 25 mg PO QAM hydroxyzine HCl 25 mg PO TID PRN losartan 25 mg PO DAILY methimazole 10 mg PO DAILY metoprolol tartrate 25 mg PO BID Tobacco use date assessed: 10/12/23 Fall risk assessment: No Falls in past year Last assessed Fall Risk: 10/12/23 Dental Screening Dental Screen Date: 10/12/23 Did you have a dental visit in the last 12 months?: Yes Did you have a dental problem in the last 6 months where you did not have access to dental care?: No Was dental information given to patient?: Patient has dentist HPI hyperthyroidism, HTN, hyperlipidemia HPI Details Patient comes in today for her follow up visit States that she feels okay She denies any headaches or dizziness Denies any chest pains, no shortness of breath No nausea/ vomiting, no pain No change in bowel habits noted States that she had her follow-up labs done a few days ago but these only included her TFTs and urinalysis She was seen by a endocrinology at [facility] back in June 2019 for for her Graves disease and is currently being treated with methimazole She was advised that given her sizable goiter as well as the presence of thyroid eye disease, surgical ablation is preferred /recommended She has a follow-up appointment coming up with surgical Endocrinology in a couple weeks, after which preparations for surgery will be arranged [facility] Medical History Hyperthyroidism NSTEMI (non-ST elevation myocardial infarction) Ascending aortic aneurysm Atherosclerotic cardiovascular disease Primary insomnia PMS (premenstrual syndrome) Osteoarthritis of hands, bilateral GERD without esophagitis Vitamin D deficiency Impaired fasting glucose Acquired hypothyroidism Pure hypercholesterolemia Benign essential hypertension Surgical History History of cardiac catheterization (~08/2020) Family History Father Medical history unknown Mother Hypertension CVD (cardiovascular disease) Breast cancer metastasized to bone Social History Housing: House Alcohol intake: current Alcohol intake frequency: holidays/special occasions only Patient Tobacco Use Status: Former Tobacco user Tobacco use type: Cigarette e-Cigarette/Vaping Use: Never Used Second Hand Smoke Exposure: Yes service: No Current occupational status: retired Cognitive needs: No Hearing needs: No Vision needs: Yes Questionnaire PHQ-9 Over the last 2 weeks, how often have you been bothered by any of the following problems? 1. Little interest or pleasure in doing things: not at all 2. Feeling down, depressed, or hopeless: not at all 3. Trouble falling or staying asleep, or sleeping too much: not at all 4. Feeling tired or having little energy: not at all 5. Poor appetite or overeating: not at all 6. Feeling bad about yourself - or that you are a failure or have let yourself or your family down: not at all 7. Trouble concentrating on things, such as reading the newspaper or watching television: not at all 8. Moving or speaking so slowly that other people could have noticed. Or the opposite - being so fidgety or restless that you have been moving around a lot more than usual: not at all 9. Thoughts that you would be better off or of hurting yourself in some way: not at all Total score: 0 Depression Screening Interpretation: Negative Depression Screening Done: Yes [id number] - PHQ-9 Billing: Yes Source: Developed by Drs. Jj Watt, Irene Tapia, Ariel Cabrales and colleagues, with an educational piero from [employer]. Thrive Questionnaire Date Thrive assessed: 06/08/23 AUDIT C Alcohol Use Questionnaire (AUDIT-C) 1. How often do you have a drink containing alcohol?: Monthly or less 2. How many drinks containing alcohol do you have on a typical day when you are drinking?: 1 or 2 3. How often do you have six or more drinks on one occasion?: Never Total Score: 1 Score Reviewed/Action Taken: Yes YOVANY-7 AMB Questionnaire YOVANY-7 Date YOVANY - 7 assessed: 10/12/23 Feeling nervous, anxious, or on edge: 0 = Not at all Not being able to stop or control worryin = Not at all Worrying too much about different things: 0 = Not at all Trouble relaxin = Not at all Being so restless that it is hard to sit still: 0 = Not at all Becoming easily annoyed or irritable: 0 = Not at all Feeling afraid as if something awful might happen: 0 = Not at all Total YOVANY-7 score (0-4 normal; 5-9 mild; 10-14 moderate; 15-21 severe): 0 Source: Developed by Drs. Jj Watt, Irene Tapia, Ariel Cabrales and colleagues, with an educational piero from [employer]. Review of Systems Const Denies chills, Reports fatigue, Denies fever(s) and Denies headache(s) Eyes Reports dry eyes ENT Denies dysphagia, Denies dizziness, Denies otalgia, Denies headache(s), Denies odynophagia and Denies sore throat Card Denies chest pain, Denies palpitations and Denies dyspnea Resp Denies cough and Denies dyspnea GI Denies abdominal pain, Denies constipation, Denies dysphagia, Denies diarrhea, Denies nausea, Denies odynophagia and Denies vomiting Denies difficulty voiding, Denies nocturia and Denies dysuria Musc Denies back pain Skin/Breast Denies rash Neuro Denies dizziness and Denies headache(s) Endo Reports fatigue and Denies palpitations Physical exam (Primary Care) Vital Signs: Last Vital Signs Pulse 75 10/12/23 12:01 BP 160/82 H 10/12/23 12:01 Pulse Ox 98 10/12/23 12:01 Oxygen Delivery Method Room Air 10/12/23 12:01 BMI result Body Mass Index 21.1 Tobacco/Smoking Status: Tobacco use Status Tobacco use date assessed 10/12/23 10/12/23 12:09 Patient Tobacco Use Status Former Tobacco user 10/12/23 12:02 Tobacco use type Cigarette 10/12/23 12:09 e-Cigarette/Vaping Use Never Used 10/12/23 12:02 PHQ-9: PHQ-9 Score PHQ-9: Total score 0 10/12/23 12:38 Depression Screening Interpretation: Negative Thrive Assessment: Date of Thrive Assessment Date Thrive assessed 06/08/23 10/12/23 12:02 Const General: no acute distress and alert HENMT Ears: TM's normal bilaterally and EAC's normal Throat: Yes posterior oropharynx normal and Yes tonsils normal (no TP congestion noted) Neck Neck: Yes no lymphadenopathy and Yes supple Thyroid: diffusely enlarged and nontender Resp Auscultation: clear to auscultation bilaterally, no rales and no wheezes Cardio Rate: regular rate Rhythm: regular rhythm Heart sounds: no murmurs GI Palpation (GI): Soft to palpation and nontender Auscultation: normal bowel sounds General: Yes no CVA tenderness Back/Spine/Pelvis Back: no CVA tenderness Skin Rashes: no rashes Extrem General: Yes no clubbing, cyanosis or edema Results Reviewed Results Reviewed: Laboratory Tests 10/09/23 10/09/23 08:38 08:39 TSH < 0.01 L Free T4 0.90 Ur Specific [place] 1.025 Urine Protein Trace Urine Glucose (UA) Negative Urine Blood Trace H Urine Nitrite Negative Ur Leukocyte Esterase Trace H Assessment and Plan Assessment & Plan (1) Atherosclerotic cardiovascular disease: Comment: S/P NSTEMI in August 2020 Code(s): I25.10 - Atherosclerotic heart disease of [place] coronary artery without angina pectoris Plan: Patient currently remains asymptomatic from a cardiovascular standpoint PCI was not done when she has NSTEMI back in 08/2020 due to increased risk to the LAD, as well as patient's hyperthyroid state at the time Continue with aggressive risk reduction Continue Aspirin 81 mg QD and Metoprolol 25 mg BID; she has been OFF Clopidogrel for a while now Follow up with cardiology as scheduled (2) Pure hypercholesterolemia: Code(s): E78.00 - Pure hypercholesterolemia, unspecified Plan: Results of her labs done a few days ago reviewed and discussed with patient but when she was advised that these did not include her fasting lipid profile Reinforced low cholesterol diet Continue Atorvastatin 20 mg QD Will recheck her labs and fasting lipids in 4 months for follow up (3) Benign essential hypertension: Code(s): I10 - Essential (primary) hypertension Plan: Reinforced low sodium diet - goal is systolic BP of at least 130 to 140 mm or less Continue Hydrochlorothiazide 25 mg QD and Metoprolol 25 mg BID (4) Ascending aortic aneurysm: Code(s): I71.2 - Thoracic aortic aneurysm, without rupture Qualifiers: Presence of rupture: without rupture Qualified Code(s): I71.21 - Aneurysm of the ascending aorta, without rupture Plan: (+) Thoracic aortic aneurysm - stable on last echocardiogram in 06/2021; measurement was at 4.0 cm at the ascending aorta Echocardiogram done in December 2022 also showed the aneurysmal dilatation to be at 4.0 cm Follow-up with cardiology as scheduled and will have repeat imaging studies again in a couple of years for follow up (5) Hyperthyroidism: Code(s): E05.90 - Thyrotoxicosis, unspecified without thyrotoxic crisis or storm Plan: Used to take Levothyroxine for hypothyroidism but was found to have high T4 and T3 level during her hospitalization back in August 2020 when she had her NSTEMI - Levothyroxine was discontinued and patient was started on Methimazole She has been diagnosed since with autoimmune hyperthyroidism/Grave's disease Continue Methimazole 10 mg QD and Levothyroxine 112 mcg QD She has been advised to consider thyroidectomy for potential long-term cure although she will require lifelong thyroid hormone supplement thereafter Follow up with [facility] Endocrinology as scheduled (6) Vitamin D deficiency: Code(s): E55.9 - Vitamin D deficiency, unspecified Plan: Continue Vitamin D3 1000 units QD (7) Impaired fasting glucose: Code(s): R73.01 - Impaired fasting glucose Plan: Her HgbA1c was at 5.9% when it was most recently checked back in May 2023; was previously at 5.5% Reinforced low calorie diet/exercise as tolerated/lose weight Will continue to monitor her HgbA1c regularly (8) GERD without esophagitis: Code(s): K21.9 - Gastro-esophageal reflux disease without esophagitis Plan: Dietary restrictions reinforced (9) Osteoarthritis of hands, bilateral: Code(s): M19.041 - Primary osteoarthritis, right hand; M19.042 - Primary osteoarthritis, left hand Qualifiers: Osteoarthritis type: primary Qualified Code(s): M19.041 - Primary osteoarthritis, right hand; M19.042 - Primary osteoarthritis, left hand Plan: X-rays of both hands done back in January 2020 showed (+) mild OA changes in both hands and fingers She is reminded to continue with regular hand and finger exercises to help manage her pain and reduce her joint stiffness (10) PMS (premenstrual syndrome): Code(s): N94.3 - Premenstrual tension syndrome Plan: Continue Fluoxetine 10 mg QD (11) Primary insomnia: Code(s): F51.01 - Primary insomnia Plan: Sleep hygiene reinforced Continue Trazodone 50 mg Q HS PRN Plan Follow up in 4 months Orders: Orders Complete Blood Count Auto Diff 4 Months D64.9 - Anemia, unspecified Comprehensive [place]. Panel Fast 4 Months E78.00 - Pure hypercholesterolemia, unspecified Lipid Panel 4 Months E78.00 - Pure hypercholesterolemia, unspecified Hemoglobin A1c 4 Months R73.01 - Impaired fasting glucose Thyroid Stimulating Hormone 4 Months E03.9 - Hypothyroidism, unspecified Free T4 (Free Thyroxine) 4 Months E03.9 - Hypothyroidism, unspecified Vitamin D 25-OH Total 4 Months E55.9 - Vitamin D deficiency, unspecified UA CC w/rflx Micro + Cult 4 Months R30.0 - Dysuria Coding Level of Care Code Est Pt Level 4 (76920) Diagnoses Atherosclerotic cardiovascular disease I25.10 Pure hypercholesterolemia E78.00 Benign essential hypertension I10 Aneurysm of ascending aorta without rupture I71.21 Presence of rupture: without rupture Hyperthyroidism E05.90 Vitamin D deficiency E55.9 Impaired fasting glucose R73.01 GERD without esophagitis K21.9 Primary osteoarthritis of both hands M19.041; M19.042 Osteoarthritis type: primary PMS (premenstrual syndrome) N94.3 Primary insomnia F51.01
== END 2023-10-12 12:42 | disposition home or self-care (01) ==
LOC: HO.HMGH 11:59
PROVIDERS: PCP Internal Medicine; Visit Provider Internal Medicine
DX: I25.10 Atherosclerotic heart disease of native coronary artery without angina pectoris (principal); E78.00 Pure hypercholesterolemia, unspecified; I10 Essential (primary) hypertension; I71.21 Aneurysm of the ascending aorta, without rupture; E05.90 Thyrotoxicosis, unspecified without thyrotoxic crisis or storm; E55.9 Vitamin D deficiency, unspecified; R73.01 Impaired fasting glucose; K21.9 Gastro-esophageal reflux disease without esophagitis; M19.041 Primary osteoarthritis, right hand; M19.042 Primary osteoarthritis, left hand; N94.3 Premenstrual tension syndrome; F51.01 Primary insomnia
CPT/HCPCS: 99214

== ENCOUNTER 2024-01-25 10:22 | Outpatient (AMB) | payer MEDICARE, OTHER, SELFPAY ==
[2024-01-25 10:25] VITALS: BP 146/60; PULSE 59; BMI 21.4
--- NOTE | 2024-01-25 10:25 | MHC.OFFVIS ---
Vital Signs 01/25/24 10:25 Height 5 ft 7 in Weight 136 lb 10.986 oz BMI 21.4 BP 146/60 H Blood Pressure Location Lt brachial Position Sitting Pulse 59 Intake Visit Reasons: follow up 1 year Sec Reporting Consultant Required: No Accompanied by: Self / Same As Patient Allergies Sulfa (Sulfonamide Antibiotics) [SULFA (SULFONAMIDE ANTIBIOTICS)] Allergy (Unknown, Verified 10/12/23 12:29) unknown Medication List - Last Reconciled 01/25/24 by Gil Khoury MD aspirin 81 mg PO DAILY atorvastatin 80 mg PO DAILY cholecalciferol (vitamin D3) (Vitamin D3) 25 mcg PO DAILY ezetimibe (Zetia) 10 mg PO DAILY fluoxetine 10 mg PO QAM hydrochlorothiazide 25 mg PO QAM hydroxyzine HCl 25 mg PO TID PRN levothyroxine 100 mcg PO DAILY losartan 25 mg PO DAILY metoprolol tartrate 25 mg PO BID HPI Comments Details: Bernice returns for follow-up regarding coronary artery disease. To recall, in 2020, she was hospitalized for non ST elevation myocardial infarction. She underwent cardiac catheterization that showed diagonal disease but not intervened. Currently on medical therapy only. She was also hyperthyroid at that time and was felt that it may have precipitated the NSTEMI. She has hypertension, hyperlipidemia as well as strong family history. Her mother had bypass surgery. Since last seen, patient states she underwent thyroid surgery. Otherwise, she states she feels fine. No cardiac symptoms. Blood pressure is on the higher side today as well as the last check from September of this year. She does not do home blood pressures. [facility] Medical History Hyperthyroidism NSTEMI (non-ST elevation myocardial infarction) Ascending aortic aneurysm Atherosclerotic cardiovascular disease Primary insomnia PMS (premenstrual syndrome) Osteoarthritis of hands, bilateral GERD without esophagitis Vitamin D deficiency Impaired fasting glucose Acquired hypothyroidism Pure hypercholesterolemia Benign essential hypertension Surgical History History of cardiac catheterization (~08/2020) Family History Father Medical history unknown Mother Hypertension CVD (cardiovascular disease) Breast cancer metastasized to bone Social History (Reviewed 01/25/24 @ 10:30 by ALVAREZ Eisenberg Housing: House Alcohol intake: current Alcohol intake frequency: holidays/special occasions only Patient Tobacco Use Status: Former Tobacco user Tobacco use type: Cigarette e-Cigarette/Vaping Use: Never Used Second Hand Smoke Exposure: Yes service: No Current occupational status: retired Cognitive needs: No Hearing needs: No Vision needs: Yes Review of Systems Const Denies chills, Denies fatigue, Denies fever(s), Denies weight gain and Denies weight loss ENT Denies dizziness Card Denies chest pain, Denies leg edema, Denies lightheadedness, Denies palpitations, Denies dyspnea on exertion, Denies orthopnea and Denies other Resp Denies cough and Denies dyspnea on exertion GI Denies hematochezia and Denies change in stool character Musc Denies abnormal gait, Denies muscle weakness, Denies numbness, Denies radiating pain into limb and Denies tingling Neuro Denies abnormal gait, Denies dizziness, Denies numbness and Denies tingling Endo Denies fatigue and Denies palpitations Physical Exam Vital Signs: Last Vital Signs Pulse 59 01/25/24 10:25 BP 146/60 H 01/25/24 10:25 BMI result Body Mass Index 21.4 Const General: comfortable and no acute distress Orientation/consciousness: patient oriented x3 HEENT Other: Unremarkable Head: Yes normal to inspection Neck Neck: Yes normal visual inspection Chest Chest palpation & inspection: normal inspection of the chest Resp Auscultation: clear to auscultation bilaterally Cardio Palpation: normal PMI Heart sounds: S1 normal heart sound present, S2 normal heart sound present, no gallops, no murmurs and no rubs GI Palpation (GI): Soft to palpation Back/Spine/Pelvis Other: unremarkable Skin General skin exam: no rashes or lesions noted Neuro General: patient oriented x3 Extrem General: Yes normal to inspection Psych Mental Status: mental status grossly normal Office Procedures EKG Details: EKG with underlying sinus rhythm at 59/Min; slight QRS widening; inferior and lateral slight ST [place] [id number], Complete Assessment & Plan Assessment & Plan (1) Atherosclerotic cardiovascular disease: Comment: S/P NSTEMI in August 2020 Code(s): I25.10 - Atherosclerotic heart disease of [place] coronary artery without angina pectoris Category: Medical Plan: Cardiac catheterization data reviewed from 08/2020. She has ostial diagonal disease, medically treated. Otherwise normal coronary arteries. Suspect EKG changes are likely related to hypertension than coronary disease. Continue aspirin. Continue beta-blockers and high-dose statins. LDL levels of variable, 40s, 60s and some 70s-80s. (2) Ascending aortic aneurysm: Code(s): I71.2 - Thoracic aortic aneurysm, without rupture Category: Medical Qualifiers: Presence of rupture: without rupture Qualified Code(s): I71.21 - Aneurysm of the ascending aorta, without rupture Plan: Measures 4 cm on echocardiogram. Stable. Can be monitored periodically. (3) Benign essential hypertension: Code(s): I10 - Essential (primary) hypertension Category: Medical Plan: Blood pressure is elevated. Will go up on the losartan dose to 50 mg daily. Check basic metabolic panel in 1-2 weeks. Also advised her to do home blood pressures. Orders: Orders Basic Metabolic Panel 2 Weeks I10 - Essential (primary) hypertension CA echo transthoracic complete Today I71.21 - Aneurysm of the ascending aorta, without rupture Medications: New losartan 50 mg PO DAILY 90 tabs 3RF Discontinued losartan Discontinued Reason: Doctor's Order 25 mg PO DAILY 90 tabs 0RF Coding Level of Care Code Est Pt Level 4 (35655) Diagnoses Atherosclerotic cardiovascular disease I25.10 Aneurysm of ascending aorta without rupture I71.21 Presence of rupture: without rupture Benign essential hypertension I10 CPT Codes EKG - CPT: 66896-[id number], Complete ([id number])
== END 2024-01-25 10:47 | disposition home or self-care (01) ==
PROVIDERS: PCP Internal Medicine; Visit Provider Internal Medicine
DX: I25.10 Atherosclerotic heart disease of native coronary artery without angina pectoris (principal); I71.21 Aneurysm of the ascending aorta, without rupture; I10 Essential (primary) hypertension
CPT/HCPCS: 93010; 99214

== ENCOUNTER → 2024-01-25 10:22 | Outpatient (BNVA) | payer MEDICARE, OTHER, SELFPAY | PROVIDERS: PCP Internal Medicine; Visit Provider Internal Medicine | DX: I25.10 Atherosclerotic heart disease of native coronary artery without angina pectoris (principal); I10 Essential (primary) hypertension; I71.21 Aneurysm of the ascending aorta, without rupture | CPT/HCPCS: 93005; 99212 ==

== ENCOUNTER 2024-02-08 11:48 | Outpatient (REF) | payer MEDICARE, OTHER, SELFPAY ==
[2024-02-08 12:37] LABS: Anion Gap 10 (12-20); Blood Urea Nitrogen 13 mg/dL (9-16); Calcium 9.8 mg/dL (8.4-10.2); Carbon Dioxide 32 mmol/L (22-29); Chloride 102 mmol/L (96-108); Estimated Glomerular Filt Rate > 60; Glucose Random 84 mg/dL (60-115); Potassium 4.1 mmol/L (3.3-5.1); Sodium 140 mmol/L (135-145)
== END 2024-02-08 11:49 | disposition home or self-care (01) ==
LOC: HO.LAB 11:48
PROVIDERS: PCP Internal Medicine; Visit Provider Internal Medicine
DX: I10 Essential (primary) hypertension (principal)
CPT/HCPCS: 36415; 80048

== ENCOUNTER 2024-02-16 08:30 | Outpatient (REF) | payer MEDICARE, OTHER, SELFPAY ==
[2024-02-16 08:52] LABS: MANUAL DIFF FLAG NO
[2024-02-16 09:43] LABS: Appearance Urine Clear; Color Urine Yellow; Glucose Urine UA Negative (Negative); Leukocyte Esterase Urine Trace (Negative); Nitrite Urine Negative (Negative); PH 5.5 (5.0-9.0); UMIC TRIGGER UACC YES; Urine Blood Small (1+) (Negative); Urine Ketones Negative (Negative); Urine Protein Negative (Neg-Trace)
[2024-02-16 09:45] LABS: Basophils Absolute Auto 0.1 X10*3/uL (0.0-0.2); Eosinophils Absolute Auto 0.3 X10*3/uL (0.0-0.4); Eosinophils Percent Auto 4.2 % (0-4); Hematocrit 44.2 % (37.0-47.0); Imm Gran Abs Auto 0.01 X10*3/uL (0.00-0.03); Imm Gran Pct Auto 0.1 % (0.0-0.4); Lymphocytes Percent Auto 42.9 % (20-40); Mean Corpuscular HGB Conc 33.9 g/dl (31.0-35.0); Mean Corpuscular Volume 91.3 fL (80.0-98.0); Mean Platelet Volume 10.4 fL (9.4-12.3); Monocytes Absolute Auto 0.7 X10*3/uL (0.1-1.2); Monocytes Percent Auto 10.2 % (2-11); Neutrophils Absolute Auto 2.9 x10*3/uL (2.0-8.3); Neutrophils Percent Auto 41.6 % (45-73); Platelet Count 282 X10*3/uL (160-400); Red Blood Count 4.84 X10*6/uL (4.20-5.50); Red Cell Distribution Width 13.3 % (11.0-16.0); White Blood Count 6.9 X10*3/uL (4.8-10.8)
[2024-02-16 09:57] LABS: Bacteria Urine None Seen (None Seen); Hyaline Casts Urine 0-2 /LPF (0-2); WBC Urine 0-5 /HPF (0-5)
[2024-02-16 10:18] LABS: Alanine Aminotransferase 13 U/L (0-31); Albumin Level 3.9 g/dL (3.5-5.0); Alkaline Phosphatase 109 U/L (39-117); Anion Gap 8 (12-20); Aspartate Amino Transferase 16 U/L (5-31); Bilirubin Total 0.6 mg/dL (0.0-1.0); Blood Urea Nitrogen 14 mg/dL (9-16); Calcium 9.4 mg/dL (8.4-10.2); Carbon Dioxide 35 mmol/L (22-29); Chloride 103 mmol/L (96-108); Cholesterol 153 mg/dL (<200); Estimated Glomerular Filt Rate > 60; Glucose Fasting 88 mg/dL (60-99); HDL Cholesterol 61 mg/dL (>40); LDL Cholesterol Calculated 76 mg/dL (<100); Potassium 4.2 mmol/L (3.3-5.1); Sodium 142 mmol/L (135-145); Total Protein 7.1 g/dL (6.5-8.0); Triglycerides 82 mg/dL (<150)
[2024-02-16 10:46] LABS: Free T4 (Free Thyroxine) 1.21 ng/dL (0.71-1.85); Thyroid Stimulating Hormone 0.08 uIU/mL (0.32-4.0); Vitamin D 25-OH Total 42.2 ng/mL (>30)
[2024-02-16 11:02] LABS: Estimated Average Glucose 120 mg/dL; Hemoglobin A1c % 5.8 % (<6.0)
== END 2024-02-16 08:31 | disposition home or self-care (01) ==
LOC: HO.LAB 08:30
PROVIDERS: PCP Internal Medicine; Visit Provider Internal Medicine
DX: D64.9 Anemia, unspecified (principal); E78.00 Pure hypercholesterolemia, unspecified; R73.01 Impaired fasting glucose; E55.9 Vitamin D deficiency, unspecified; E03.9 Hypothyroidism, unspecified
CPT/HCPCS: 36415; 80053; 80061; 81001; 82306; 83036; 84439; 84443; 85025

== ENCOUNTER 2024-02-20 10:48 | Outpatient (AMB) | payer MEDICARE, OTHER, SELFPAY ==
[2024-02-20 11:04] VITALS: BP 136/84; PULSE 53; O2SAT 97; BMI 21.8
--- NOTE | 2024-02-20 11:04 | A.OFFPC_ITS ---
Vital Signs 02/20/24 11:04 Height 5 ft 7 in Weight 139 lb BMI 21.8 BP 136/84 Blood Pressure Location Lt brachial Position Sitting Pulse 53 Pulse Source Pulse Oximeter Pulse Oximetry (%) 97 Oxygen Delivery Method Room Air Intake Visit Reasons: hyperlipidemia, Grave's disease, HTN Product Marketing Specialist Required: No Accompanied by: Self / Same As Patient Allergies Sulfa (Sulfonamide Antibiotics) [SULFA (SULFONAMIDE ANTIBIOTICS)] Allergy (Unknown, Verified 02/20/24 11:33) unknown Medication List - Last Reconciled 02/20/24 by Todd Weston MD aspirin 81 mg PO DAILY atorvastatin 80 mg PO DAILY cholecalciferol (vitamin D3) (Vitamin D3) 25 mcg PO DAILY ezetimibe (Zetia) 10 mg PO DAILY fluoxetine 10 mg PO QAM hydrochlorothiazide 25 mg PO QAM hydroxyzine HCl 25 mg PO TID PRN levothyroxine 100 mcg PO DAILY losartan 50 mg PO DAILY metoprolol tartrate 25 mg PO BID Tobacco use date assessed: 02/20/24 Fall risk assessment: No Falls in past year Last assessed Fall Risk: 02/20/24 Dental Screening Dental Screen Date: 02/20/24 Did you have a dental visit in the last 12 months?: Yes Did you have a dental problem in the last 6 months where you did not have access to dental care?: No Was dental information given to patient?: Patient has dentist HPI hyperlipidemia, Grave's disease, HTN HPI Details Patient comes in today for her follow up visit States that she feels okay She denies any headaches or dizziness Denies any chest pains, no shortness of breath No nausea/ vomiting, no pain No change in bowel habits noted She continues to follow up with endocrinology at [facility] for her thyroid issues and states that she has a follow up appt scheduled this Monday She had her follow up labs done a few days ago - to discuss her results [facility] Medical History Hyperthyroidism NSTEMI (non-ST elevation myocardial infarction) Ascending aortic aneurysm Atherosclerotic cardiovascular disease Primary insomnia PMS (premenstrual syndrome) Osteoarthritis of hands, bilateral GERD without esophagitis Vitamin D deficiency Impaired fasting glucose Acquired hypothyroidism Pure hypercholesterolemia Benign essential hypertension Surgical History History of cardiac catheterization (~08/2020) Family History Father Medical history unknown Mother Hypertension CVD (cardiovascular disease) Breast cancer metastasized to bone Social History Housing: House Alcohol intake: current Alcohol intake frequency: holidays/special occasions only Patient Tobacco Use Status: Former Tobacco user Tobacco use type: Cigarette e-Cigarette/Vaping Use: Never Used Second Hand Smoke Exposure: Yes service: No Current occupational status: retired Cognitive needs: No Hearing needs: No Vision needs: Yes Questionnaire PHQ-9 Over the last 2 weeks, how often have you been bothered by any of the following problems? 1. Little interest or pleasure in doing things: not at all 2. Feeling down, depressed, or hopeless: not at all 3. Trouble falling or staying asleep, or sleeping too much: not at all 4. Feeling tired or having little energy: not at all 5. Poor appetite or overeating: not at all 6. Feeling bad about yourself - or that you are a failure or have let yourself or your family down: not at all 7. Trouble concentrating on things, such as reading the newspaper or watching television: not at all 8. Moving or speaking so slowly that other people could have noticed. Or the opposite - being so fidgety or restless that you have been moving around a lot more than usual: not at all 9. Thoughts that you would be better off or of hurting yourself in some way: not at all Total score: 0 Depression Screening Interpretation: Negative Depression Screening Done: Yes 02980 - PHQ-9 Billing: Yes Source: Developed by Drs. Jj Watt, Irene Tapia, Ariel Cabrales and colleagues, with an educational piero from [employer]. Thrive Questionnaire Date Thrive assessed: 02/20/24 I am a: Patient What is your living situation today?: I have a steady place to live Within the past 12 months, did the food you bought not last and you didn't have the money to get more?: Never true Within the past 12 months, did you worry whether your food would run out before you got money to buy more?: Never true Do you have trouble paying for medicines?: No Do you have trouble getting transportation to medical appointments?: No Do you have trouble paying your heating and electricity bill?: No Do you have trouble taking care of your child, family member or friend?: No Do you have trouble with day-to-day activities such as bathing, preparing meals, shopping, managing finances, etc.?: No Are you currently unemployed and looking for a job?: No Are you interested in more education?: No Please select the resources that you would like help with: None Currently or been in a relationship where the following occur: No concerns reported THRIVE Score: 0 AUDIT C Alcohol Use Questionnaire (AUDIT-C) 1. How often do you have a drink containing alcohol?: Monthly or less 2. How many drinks containing alcohol do you have on a typical day when you are drinking?: 1 or 2 3. How often do you have six or more drinks on one occasion?: Never Total Score: 1 Score Reviewed/Action Taken: Yes YOVANY-7 AMB Questionnaire YOVANY-7 Date YOVANY - 7 assessed: 02/20/24 Feeling nervous, anxious, or on edge: 0 = Not at all Not being able to stop or control worryin = Not at all Worrying too much about different things: 0 = Not at all Trouble relaxin = Not at all Being so restless that it is hard to sit still: 0 = Not at all Becoming easily annoyed or irritable: 0 = Not at all Feeling afraid as if something awful might happen: 0 = Not at all Total YOVANY-7 score (0-4 normal; 5-9 mild; 10-14 moderate; 15-21 severe): 0 Source: Developed by Drs. Jj Watt, Irene Tapia, Ariel Cabrales and colleagues, with an educational piero from [employer]. Review of Systems Const Denies chills, Denies fatigue, Denies fever(s) and Denies headache(s) ENT Denies dysphagia, Denies dizziness, Denies otalgia, Denies headache(s), Denies neck pain, Denies odynophagia and Denies sore throat Card Denies chest pain, Denies palpitations and Denies dyspnea Resp Denies chest congestion, Denies cough and Denies dyspnea GI Denies abdominal pain, Denies constipation, Denies dysphagia, Denies diarrhea, Denies nausea, Denies odynophagia and Denies vomiting Denies difficulty voiding, Denies nocturia, Denies dysuria and Denies urinary urgency Musc Denies back pain and Denies neck pain Skin/Breast Denies rash Neuro Denies dizziness and Denies headache(s) Endo Denies fatigue and Denies palpitations Physical exam (Primary Care) Vital Signs: Last Vital Signs Pulse 53 02/20/24 11:04 BP 136/84 02/20/24 11:04 Pulse Ox 97 02/20/24 11:04 Oxygen Delivery Method Room Air 02/20/24 11:04 BMI result Body Mass Index 21.8 Tobacco/Smoking Status: Tobacco use Status Tobacco use date assessed 02/20/24 02/20/24 11:08 Patient Tobacco Use Status Former Tobacco user 02/20/24 11:08 Tobacco use type Cigarette 02/20/24 11:08 e-Cigarette/Vaping Use Never Used 02/20/24 11:08 PHQ-9: PHQ-9 Score PHQ-9: Total score 0 02/20/24 11:08 Depression Screening Interpretation: Negative Thrive Assessment: Date of Thrive Assessment Date Thrive assessed 02/20/24 02/20/24 11:08 Currently or been in a relationship where the following occur: No concerns reported Const General: no acute distress and alert HENMT Ears: TM's normal bilaterally and EAC's normal Throat: Yes posterior oropharynx normal and Yes tonsils normal (no TP congestion noted) Neck Neck: Yes no lymphadenopathy and Yes supple Thyroid: diffusely enlarged and nontender Resp Auscultation: clear to auscultation bilaterally, no rales and no wheezes Cardio Rate: regular rate Rhythm: regular rhythm Heart sounds: no murmurs GI Palpation (GI): Soft to palpation and nontender Auscultation: normal bowel sounds General: Yes no CVA tenderness Back/Spine/Pelvis Back: no CVA tenderness Thoracic/Lumbar Spine: No lumbar spinal tenderness Skin Rashes: no rashes Extrem General: Yes no clubbing, cyanosis or edema Results Reviewed Results Reviewed: Laboratory Tests 06/06/23 02/16/24 02/16/24 08:43 08:50 08:51 WBC 6.9 Hgb 15.0 Hct 44.2 Plt Count 282 Sodium 142 Potassium 4.2 Creatinine 0.66 Estimated GFR > 60 Fasting Glucose 88 Hemoglobin A1c % 5.8 Calcium 9.4 AST 16 ALT 13 Triglycerides 82 Cholesterol 153 LDL Cholesterol, Calc 76 HDL Cholesterol 61 25-OH Vitamin D Total 42.2 TSH 0.08 L Free T4 1.21 Total T3 65 L Ur Specific [place] 1.020 Urine Protein Negative Urine Glucose (UA) Negative Urine Blood Small (1+) H Urine Nitrite Negative Ur Leukocyte Esterase Trace H Assessment and Plan Assessment & Plan (1) Atherosclerotic cardiovascular disease: Comment: S/P NSTEMI in August 2020 Code(s): I25.10 - Atherosclerotic heart disease of [place] coronary artery without angina pectoris Plan: Patient currently remains asymptomatic from a cardiovascular standpoint PCI was not done when she has NSTEMI back in 08/2020 due to increased risk to the LAD, as well as patient's hyperthyroid state at the time She has been recommended to continue with aggressive risk reduction, including diet and lifestyle changes Continue Aspirin 81 mg QD and Metoprolol 25 mg BID; she was taken OFF Clopidogrel over a year ago Follow up with cardiology as scheduled (2) Pure hypercholesterolemia: Code(s): E78.00 - Pure hypercholesterolemia, unspecified Plan: Results of her labs done a few days ago reviewed and discussed with patient Reinforced low cholesterol diet Continue Atorvastatin 20 mg QD Will recheck her labs and fasting lipids in 4 months for follow up (3) Benign essential hypertension: Code(s): I10 - Essential (primary) hypertension Plan: Reinforced low sodium diet - goal is systolic BP of at least 130 to 140 mm or less Continue Hydrochlorothiazide 25 mg QD, Losartan 50 mg QD and Metoprolol 25 mg BID (4) Ascending aortic aneurysm: Code(s): I71.2 - Thoracic aortic aneurysm, without rupture Qualifiers: Presence of rupture: without rupture Qualified Code(s): I71.21 - Aneurysm of the ascending aorta, without rupture Plan: (+) Thoracic aortic aneurysm - stable on last echocardiogram in 06/2021; measurement was at 4.0 cm at the ascending aorta Echocardiogram done in December 2022 also showed the aneurysmal dilatation to be at 4.0 cm Follow-up with cardiology as scheduled and will have repeat imaging studies again sometime next year for follow up (5) Hyperthyroidism: Code(s): E05.90 - Thyrotoxicosis, unspecified without thyrotoxic crisis or storm Plan: Patient used to take Levothyroxine for hypothyroidism but was found to have high T4 and T3 level during her hospitalization back in August 2020 when she had her NSTEMI - Levothyroxine was discontinued and patient was started on Methimazole She has been diagnosed since with autoimmune hyperthyroidism/Grave's disease She was on Methimazole for a while but this was discontinued several months ago and she is now on thyroid hormone supplement Continue Levothyroxine 100 mcg QD Follow up with [facility] Endocrinology as scheduled She has reportedly been advised to consider thyroidectomy for potential long- term cure although she will require lifelong thyroid hormone supplement thereafter (6) Impaired fasting glucose: Code(s): R73.01 - Impaired fasting glucose Plan: Her HgbA1c was at 5.8% on her recent labs; was previously at 5.9% back in May 2023 Reinforced low calorie diet/exercise as tolerated/lose weight Will continue to monitor her HgbA1c regularly (7) Vitamin D deficiency: Code(s): E55.9 - Vitamin D deficiency, unspecified Plan: Continue Vitamin D3 1000 units QD (8) GERD without esophagitis: Code(s): K21.9 - Gastro-esophageal reflux disease without esophagitis Plan: Dietary restrictions reinforced (9) Osteoarthritis of hands, bilateral: Code(s): M19.041 - Primary osteoarthritis, right hand; M19.042 - Primary osteoarthritis, left hand Qualifiers: Osteoarthritis type: primary Qualified Code(s): M19.041 - Primary osteoarthritis, right hand; M19.042 - Primary osteoarthritis, left hand Plan: X-rays of both hands done back in January 2020 showed (+) mild OA changes in both hands and fingers She is reminded to continue with regular hand and finger exercises to help manage her pain and reduce her joint stiffness (10) PMS (premenstrual syndrome): Code(s): N94.3 - Premenstrual tension syndrome Plan: Continue Fluoxetine 10 mg QD (11) Primary insomnia: Code(s): F51.01 - Primary insomnia Plan: Sleep hygiene reinforced She used to take Trazodone 50 mg Q HS PRN but has not needed any Rx in a while now Plan Follow up in 4 months Orders: Orders Comprehensive [place]. Panel Fast 4 Months E78.00 - Pure hypercholesterolemia, unspecified Lipid Panel 4 Months E78.00 - Pure hypercholesterolemia, unspecified Hemoglobin A1c 4 Months R73.01 - Impaired fasting glucose Free T4 (Free Thyroxine) 4 Months E03.9 - Hypothyroidism, unspecified Vitamin D 25-OH Total 4 Months E55.9 - Vitamin D deficiency, unspecified Thyroid Stimulating Hormone 4 Months E03.9 - Hypothyroidism, unspecified Complete Blood Count Auto Diff 4 Months D64.9 - Anemia, unspecified UA CC w/rflx Micro + Cult 4 Months R30.0 - Dysuria Coding Level of Care Code Est Pt Level 4 (78740) Complex EM visit Add On G2211 Diagnoses Atherosclerotic cardiovascular disease I25.10 Pure hypercholesterolemia E78.00 Benign essential hypertension I10 Aneurysm of ascending aorta without rupture I71.21 Presence of rupture: without rupture Hyperthyroidism E05.90 Impaired fasting glucose R73.01 Vitamin D deficiency E55.9 GERD without esophagitis K21.9 Primary osteoarthritis of both hands M19.041; M19.042 Osteoarthritis type: primary PMS (premenstrual syndrome) N94.3 Primary insomnia F51.01
== END 2024-02-20 11:44 | disposition home or self-care (01) ==
PROVIDERS: PCP Internal Medicine; Visit Provider Internal Medicine
DX: I25.10 Atherosclerotic heart disease of native coronary artery without angina pectoris (principal); E78.00 Pure hypercholesterolemia, unspecified; I10 Essential (primary) hypertension; I71.21 Aneurysm of the ascending aorta, without rupture; E05.90 Thyrotoxicosis, unspecified without thyrotoxic crisis or storm; R73.01 Impaired fasting glucose; E55.9 Vitamin D deficiency, unspecified; K21.9 Gastro-esophageal reflux disease without esophagitis; M19.041 Primary osteoarthritis, right hand; M19.042 Primary osteoarthritis, left hand; N94.3 Premenstrual tension syndrome; F51.01 Primary insomnia

== ENCOUNTER → 2024-02-20 10:48 | Outpatient (BNVA) | payer MEDICARE, OTHER, SELFPAY | PROVIDERS: PCP Internal Medicine; Visit Provider Internal Medicine | DX: E05.90 Thyrotoxicosis, unspecified without thyrotoxic crisis or storm (principal); I25.10 Atherosclerotic heart disease of native coronary artery without angina pectoris; I10 Essential (primary) hypertension; I71.21 Aneurysm of the ascending aorta, without rupture; E78.00 Pure hypercholesterolemia, unspecified; R73.01 Impaired fasting glucose; E55.9 Vitamin D deficiency, unspecified; K21.9 Gastro-esophageal reflux disease without esophagitis; N94.3 Premenstrual tension syndrome; M19.041 Primary osteoarthritis, right hand; M19.042 Primary osteoarthritis, left hand | CPT/HCPCS: 99212 ==

== ENCOUNTER → 2024-02-21 10:39 | Outpatient (REF) | payer MEDICARE, OTHER, SELFPAY ==
--- NOTE | 2024-02-21 10:42 | CA_ITS ---
Transthoracic Echocardiogram Patient (Last, First, Middle): Bernice Jauregui A Gender: Female Date of : 1955 Age: 68 Procedure Date: 02/21/2024 Procedure Type: Transthoracic Echocardiogram Location: OP Height: 167.64 cm Weight: 63.05 kg BSA: 1.71 m2 Heart Rate: bpm BP: 139 / 84 mmHg It Quality Analyst: HELADIO Referring MD: Gil Khoury MD Symptoms: I71.21 - Aneurysm of the ascending aorta, without rupture Study Quality: Adequate ECG Rhythm: Sinus Conclusions: - The left ventricular systolic function is normal. The calculated ejection fraction is 61% by biplane method. - There is mild aortic valve regurgitation. - There is mild dilatation of the ascending aorta measuring 4.00 cm. Findings Left Ventricle Normal left ventricular cavity size. There is normal left ventricular wall thickness. The left ventricular systolic function is normal. The calculated ejection fraction is 61% by biplane method. There is no evidence of regional wall motion abnormalities. Evidence suggests grade I (mild) diastolic dysfunction. Right Ventricle Normal right ventricular cavity size and systolic function. Atria The left atrium is mildly dilated. The right atrium is normal in size. Aortic Valve There is a normal trileaflet aortic valve. There is no aortic valve stenosis. There is mild aortic valve regurgitation. Mitral Valve The mitral valve appears normal. There is mild mitral annular calcification. There is trace mitral valve regurgitation. There is no mitral valve stenosis. Pulmonic Valve The pulmonic valve is likely normal. Tricuspid Valve There is mild tricuspid valve regurgitation. There is no evidence of pulmonary hypertension. Great Vessels There is mild dilatation of the ascending aorta measuring 4.00 cm. Small plaque is seen in the sino tubular ridge. Venous The inferior vena cava is normal in size and collapses greater than 50% with inspiration. Pericardium/Pleural There is no evidence of pericardial effusion. Prior Study Comparison No significant change compared to prior study dated: 01/16/2023. Measurements 2D Linear Measurements IVSd: 0.72 0.6-0.9/0.6-1.0 cm LVIDd: 5.24 3.9-5.3/4.2-5.9 cm LVIDd Index: 3.06 2.4-3.2/2.2-3.1 cm/m2 LVIDs: 3.01 2.0-3.6 cm LVPWd: 0.75 0.7-1.1 cm LA Diam: 3.70 2.7-3.8/3.0-4.0 cm LAIDs Index: 2.16 1.5-2.3 cm/m2 LV Mass: 163.86 67-162/88-224 g LV Mass Index: 95.83 43-95/49-115 g/m2 LVOT Diam: 2.00 3.0+(-)1.3 cm 2D Systolic Function EF 4C: 63.20 >55% EF 2C: 56.20 >55% EF BiP: 61.00 >55% Mitral Valve MV Pk E: 0.74 MV PK A: 0.63 MV Decel Time: 296.00 E/A: 1.20 E'Lateral: 7.83 E'Medial: 4.90 E/E' Med: 15.00 E/E' Lat: 9.40 PHT: 87.00 MVA PHT: 2.53 Decel Crowley: 2.49 Aortic Valve AoV Pk Randall: 1.54 AoV Mn Randall: 1.03 AoV VTI: 0.39 AoV Pk Grad: 9.00 Aov Mn Grad: 5.00 RODOLFO Cont.VTI: 2.99 AI Pk Randall: 4.93 AI Crowley: 1.83 LVOT LVOT Pk Randall: 1.35 LVOT Mn Randall: 0.90 LVOT VTI: 0.37 LVOT Pk Grad: 7.00 LVOT Mn Grad: 4.00 LVOT Diam: 2.00 LVOT Area: 3.14 Diastolic Function MV Pk E: 0.74 MV Pk A: 0.63 E/A: 1.20 E'Medial: 4.90 E/E' Med: 15.00 E' Laterial: 7.83 E/E' Lat: 9.40 Right Ventricle TAPSE (mm): 24.60 TVS' Randall: 8.05 Tricuspid Valve TR Pk Randall: 2.24 TR Pk Grad: 20.00 RA Press: 3.00 RVSP: 23.00 Great Vessels Aorta Sinus of Valsalva: 3.35 2.0-3.[address] [place]: 2.85 1.7-3.4 cm Ao Asc: 4.00 2.1-3.4 cm Updated in Other Vendor System with Status of Final Gil Peng MD electronically signed on 02/23/2024 1:36:17 PM with status of Final
== END ==
LOC: HO.CARD 10:39
PROVIDERS: PCP Internal Medicine; Visit Provider Internal Medicine
DX: I71.21 Aneurysm of the ascending aorta, without rupture (principal)
CPT/HCPCS: 93306

== ENCOUNTER → 2024-02-21 10:42 | Outpatient (BNV) | payer MEDICARE, OTHER, SELFPAY | PROVIDERS: PCP Internal Medicine; Visit Provider Internal Medicine | DX: I35.1 Nonrheumatic aortic (valve) insufficiency (principal); I36.1 Nonrheumatic tricuspid (valve) insufficiency; I34.81 Nonrheumatic mitral (valve) annulus calcification; R93.1 Abnormal findings on diagnostic imaging of heart and coronary circulation | CPT/HCPCS: 93306 ==

== ENCOUNTER 2024-06-21 09:08 | Outpatient (REF) | payer MEDICARE, OTHER, SELFPAY ==
[2024-06-21 09:26] LABS: MANUAL DIFF FLAG NO
[2024-06-21 10:40] LABS: Appearance Urine Cloudy; Color Urine Yellow; Glucose Urine UA Negative (Negative); Leukocyte Esterase Urine Small (1+) (Negative); Nitrite Urine Negative (Negative); PH 7.5 (5.0-9.0); UMIC TRIGGER UACC YES; Urine Blood Negative (Negative); Urine Ketones Negative (Negative); Urine Protein Trace mg/dL (Neg-Trace)
[2024-06-21 10:46] LABS: Basophils Absolute Auto 0.1 X10*3/uL (0.0-0.2); Basophils Percent Auto 0.7 % (0-2); Eosinophils Absolute Auto 0.3 X10*3/uL (0.0-0.4); Eosinophils Percent Auto 2.8 % (0-4); Hemoglobin 14.8 g/dl (12.0-16.0); Imm Gran Abs Auto 0.03 X10*3/uL (0.00-0.03); Imm Gran Pct Auto 0.3 % (0.0-0.4); Lymphocytes Absolute Auto 3.4 X10*3/uL (1.2-4.9); Mean Corpuscular HGB Conc 34.4 g/dl (31.0-35.0); Mean Corpuscular Hemoglobin 31.8 pg (27.0-33.0); Mean Corpuscular Volume 92.3 fL (80.0-98.0); Mean Platelet Volume 10.6 fL (9.4-12.3); Monocytes Absolute Auto 0.8 X10*3/uL (0.1-1.2); Monocytes Percent Auto 8.7 % (2-11); Neutrophils Absolute Auto 4.9 x10*3/uL (2.0-8.3); Neutrophils Percent Auto 51.5 % (45-73); Platelet Count 296 X10*3/uL (160-400); Red Blood Count 4.66 X10*6/uL (4.20-5.50); Red Cell Distribution Width 13.6 % (11.0-16.0); White Blood Count 9.4 X10*3/uL (4.8-10.8)
[2024-06-21 10:52] LABS: Bacteria Urine Trace (None Seen); Hyaline Casts Urine 0-2 /LPF (0-2); UACC Culture Trigger YES; WBC Urine 0-5 /HPF (0-5)
[2024-06-21 10:54] LABS: Estimated Average Glucose 126 mg/dL; Hemoglobin A1C 159.1731 umol/L; Total Hemoglobin (HGBA1C) 3830.1276 umol/L
[2024-06-21 13:13] LABS: Free T4 (Free Thyroxine) 1.02 ng/dL (0.71-1.85); Thyroid Stimulating Hormone 1.34 uIU/mL (0.32-4.0)
[2024-06-21 13:15] LABS: Alanine Aminotransferase 20 U/L (0-31); Albumin Level 4.1 g/dL (3.5-5.0); Anion Gap 13 (12-20); Aspartate Amino Transferase 27 U/L (5-31); Bilirubin Total 0.6 mg/dL (0.0-1.0); Blood Urea Nitrogen 15 mg/dL (9-16); Calcium 9.5 mg/dL (8.4-10.2); Carbon Dioxide 30 mmol/L (22-29); Chloride 103 mmol/L (96-108); Cholesterol 169 mg/dL (<200); Estimated Glomerular Filt Rate > 60; Glucose Fasting 89 mg/dL (60-99); HDL Cholesterol 60 mg/dL (>40); LDL Cholesterol Calculated 81 mg/dL (<100); Potassium 4.3 mmol/L (3.3-5.1); Sodium 142 mmol/L (135-145); Total Protein 7.7 g/dL (6.5-8.0); Triglycerides 142 mg/dL (<150)
[2024-06-21 14:18] LABS: Alkaline Phosphatase 81 U/L (39-117)
== END 2024-06-21 09:09 | disposition home or self-care (01) ==
LOC: HO.LAB 09:08
PROVIDERS: PCP Internal Medicine; Visit Provider Internal Medicine
DX: E78.00 Pure hypercholesterolemia, unspecified (principal); E55.9 Vitamin D deficiency, unspecified; E03.9 Hypothyroidism, unspecified; R73.01 Impaired fasting glucose; D64.9 Anemia, unspecified; R30.0 Dysuria
CPT/HCPCS: 36415; 80053; 80061; 81001; 82306; 83036; 84439; 84443; 85025; 87086

== ENCOUNTER 2024-06-24 10:41 | Outpatient (AMB) | payer MEDICARE, OTHER, SELFPAY ==
[2024-06-24 10:43] VITALS: BP 136/84; PULSE 59; O2SAT 97; BMI 22.1
--- NOTE | 2024-06-24 10:43 | A.OFFPC_ITS ---
Vital Signs 06/24/24 10:43 Height 5 ft 7 in Weight 141 lb 2 oz BMI 22.1 BP 136/84 Blood Pressure Location Lt brachial Position Sitting Pulse 59 Pulse Source Pulse Oximeter Pulse Oximetry (%) 97 Oxygen Delivery Method Room Air Intake Visit Reasons: 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: No Accompanied by: Self / Same As Patient Allergies Sulfa (Sulfonamide Antibiotics) [SULFA (SULFONAMIDE ANTIBIOTICS)] Allergy (Unknown, Verified 06/24/24 11:10) unknown Medication List - Last Reconciled 06/24/24 by Todd Weston MD aspirin 81 mg PO DAILY atorvastatin 80 mg PO DAILY cholecalciferol (vitamin D3) (Vitamin D3) 25 mcg PO DAILY ezetimibe (Zetia) 10 mg PO DAILY fluoxetine 10 mg PO QAM hydrochlorothiazide 25 mg PO QAM hydroxyzine HCl 25 mg PO TID PRN levothyroxine 112 mcg PO DAILY losartan 50 mg PO DAILY metoprolol tartrate 25 mg PO BID Tobacco use date assessed: 06/24/24 Fall risk assessment: No Falls in past year Last assessed Fall Risk: 06/24/24 Dental Screening Dental Screen Date: 06/24/24 Did you have a dental visit in the last 12 months?: Yes Did you have a dental problem in the last 6 months where you did not have access to dental care?: No Was dental information given to patient?: Patient has dentist HPI [facility] f/u HPI Details Patient comes in today for her follow up visit States that she feels okay She denies any headaches or dizziness Denies any chest pains, no shortness of breath No nausea/ vomiting, no pain No change in bowel habits noted She continues to follow up with endocrinology at [facility] for her thyroid issues She underwent successful total thyroidectomy at [facility] last year on 11/20/2023 and is currently on lifelong thyroid hormone supplementation She had her follow up labs done a few days ago - to discuss her results ON LICENSE OF [facility] Medical History (Updated 06/24/24 @ 11:59 by Todd Weston MD) Hyperthyroidism NSTEMI (non-ST elevation myocardial infarction) Ascending aortic aneurysm Atherosclerotic cardiovascular disease Primary insomnia PMS (premenstrual syndrome) Osteoarthritis of hands, bilateral GERD without esophagitis Vitamin D deficiency Impaired fasting glucose Acquired hypothyroidism Pure hypercholesterolemia Benign essential hypertension Surgical History (Updated 06/24/24 @ 11:35 by Todd Weston MD) Hx of total thyroidectomy History of cardiac catheterization (~08/2020) Family History Father Medical history unknown Mother Hypertension CVD (cardiovascular disease) Breast cancer metastasized to bone Social History Housing: House Alcohol intake: current Alcohol intake frequency: holidays/special occasions only Patient Tobacco Use Status: Former Tobacco user Tobacco use type: Cigarette e-Cigarette/Vaping Use: Never Used Second Hand Smoke Exposure: Yes service: No Current occupational status: retired Cognitive needs: No Hearing needs: No Vision needs: Yes Questionnaire PHQ-9 Over the last 2 weeks, how often have you been bothered by any of the following problems? 1. Little interest or pleasure in doing things: not at all 2. Feeling down, depressed, or hopeless: not at all 3. Trouble falling or staying asleep, or sleeping too much: not at all 4. Feeling tired or having little energy: not at all 5. Poor appetite or overeating: not at all 6. Feeling bad about yourself - or that you are a failure or have let yourself or your family down: not at all 7. Trouble concentrating on things, such as reading the newspaper or watching television: not at all 8. Moving or speaking so slowly that other people could have noticed. Or the opposite - being so fidgety or restless that you have been moving around a lot more than usual: not at all 9. Thoughts that you would be better off or of hurting yourself in some way: not at all Total score: 0 Depression Screening Interpretation: Negative Depression Screening Done: Yes 07971 - PHQ-9 Billing: Yes Source: Developed by Drs. Jj Watt, Irene Tapia, Ariel Cabrales and colleagues, with an educational piero from [employer]. Thrive Questionnaire Date Thrive assessed: 06/24/24 I am a: Patient What is your living situation today?: I have a steady place to live Within the past 12 months, did the food you bought not last and you didn't have the money to get more?: Never true Within the past 12 months, did you worry whether your food would run out before you got money to buy more?: Never true Do you have trouble paying for medicines?: No Do you have trouble getting transportation to medical appointments?: No Do you have trouble paying your heating and electricity bill?: No Do you have trouble taking care of your child, family member or friend?: No Do you have trouble with day-to-day activities such as bathing, preparing meals, shopping, managing finances, etc.?: No Are you currently unemployed and looking for a job?: No Are you interested in more education?: No Please select the resources that you would like help with: None Currently or been in a relationship where the following occur: No concerns reported THRIVE Score: 0 AUDIT C Alcohol Use Questionnaire (AUDIT-C) 1. How often do you have a drink containing alcohol?: Monthly or less 2. How many drinks containing alcohol do you have on a typical day when you are drinking?: 1 or 2 3. How often do you have six or more drinks on one occasion?: Never Total Score: 1 Score Reviewed/Action Taken: Yes YOVANY-7 AMB Questionnaire YOVANY-7 Date YOVANY - 7 assessed: 06/24/24 Feeling nervous, anxious, or on edge: 0 = Not at all Not being able to stop or control worryin = Not at all Worrying too much about different things: 0 = Not at all Trouble relaxin = Not at all Being so restless that it is hard to sit still: 0 = Not at all Becoming easily annoyed or irritable: 0 = Not at all Feeling afraid as if something awful might happen: 0 = Not at all Total YOVANY-7 score (0-4 normal; 5-9 mild; 10-14 moderate; 15-21 severe): 0 Source: Developed by Drs. Jj Watt, Irene Tapia, Ariel Cabrales and colleagues, with an educational piero from [employer]. Review of Systems Const Denies chills, Denies fatigue, Denies fever(s) and Denies headache(s) ENT Denies dysphagia, Denies dizziness, Denies otalgia, Denies headache(s), Denies neck pain, Denies odynophagia and Denies sore throat Card Denies chest pain, Denies palpitations and Denies dyspnea Resp Denies chest congestion, Denies cough and Denies dyspnea GI Denies abdominal pain, Denies constipation, Denies dysphagia, Denies diarrhea, Denies nausea, Denies odynophagia and Denies vomiting Denies difficulty voiding, Denies nocturia, Denies dysuria and Denies urinary urgency Musc Denies back pain and Denies neck pain Skin/Breast Denies rash Neuro Denies dizziness and Denies headache(s) Endo Denies fatigue and Denies palpitations Physical exam (Primary Care) Vital Signs: Last Vital Signs Pulse 59 06/24/24 10:43 BP 136/84 06/24/24 10:43 Pulse Ox 97 06/24/24 10:43 Oxygen Delivery Method Room Air 06/24/24 10:43 BMI result Body Mass Index 22.1 Tobacco/Smoking Status: Tobacco use Status Tobacco use date assessed 06/24/24 06/24/24 10:49 Patient Tobacco Use Status Former Tobacco user 06/24/24 10:49 Tobacco use type Cigarette 06/24/24 10:49 e-Cigarette/Vaping Use Never Used 06/24/24 10:49 PHQ-9: PHQ-9 Score PHQ-9: Total score 0 06/24/24 10:49 Depression Screening Interpretation: Negative Thrive Assessment: Date of Thrive Assessment Date Thrive assessed 06/24/24 06/24/24 10:49 Currently or been in a relationship where the following occur: No concerns reported Const General: no acute distress and alert HENMT Ears: TM's normal bilaterally and EAC's normal Throat: Yes posterior oropharynx normal and Yes tonsils normal (no TP congestion noted) Neck Neck: Yes supple and No lymphadenopathy Thyroid: other (thyroid gland absent - s/p total thyroidectomy) Resp Auscultation: clear to auscultation bilaterally, no rales and no wheezes Cardio Rate: regular rate Rhythm: regular rhythm Heart sounds: no murmurs GI Palpation (GI): Soft to palpation and nontender Auscultation: normal bowel sounds General: Yes no CVA tenderness Back/Spine/Pelvis Back: no CVA tenderness Thoracic/Lumbar Spine: No lumbar spinal tenderness Skin Rashes: no rashes Extrem General: Yes no clubbing, cyanosis or edema Results Reviewed Results Reviewed: Laboratory Tests 06/21/24 06/21/24 09:25 09:30 WBC 9.4 Hgb 14.8 Hct 43.0 Plt Count 296 Sodium 142 Potassium 4.3 Creatinine 0.65 Estimated GFR > 60 Fasting Glucose 89 Hemoglobin A1c % 6.0 Calcium 9.5 AST 27 ALT 20 Triglycerides 142 Cholesterol 169 LDL Cholesterol, Calc 81 HDL Cholesterol 60 25-OH Vitamin D Total 41.0 TSH 1.34 Free T4 1.02 Ur Specific [place] 1.020 Urine Protein Trace Urine Glucose (UA) Negative Urine Blood Negative Urine Nitrite Negative Ur Leukocyte Esterase Small (1+) H Coding Level of Care Code Est Pt Level 4 (50477) Diagnoses Atherosclerotic cardiovascular disease I25.10 Pure hypercholesterolemia E78.00 Benign essential hypertension I10 Acquired hypothyroidism E03.9 Aneurysm of ascending aorta without rupture I71.21 Presence of rupture: without rupture Impaired fasting glucose R73.01 Vitamin D deficiency E55.9 GERD without esophagitis K21.9 Primary osteoarthritis of both hands M19.041; M19.042 Osteoarthritis type: primary PMS (premenstrual syndrome) N94.3 Primary insomnia F51.01 Additional Codes PHQ-9 - 18503 - PHQ-9 Billing: Yes ([id number]) Assessment & Plan Assessment & Plan (1) Atherosclerotic cardiovascular disease: Comment: S/P NSTEMI in August 2020 Code(s): I25.10 - Atherosclerotic heart disease of [place] coronary artery without angina pectoris Category: Medical Plan: Patient currently remains asymptomatic from a cardiovascular standpoint PCI was not done when she has NSTEMI back in 08/2020 due to increased risk to the LAD, as well as patient's hyperthyroid state at the time She has been recommended to continue with aggressive risk reduction, including diet and lifestyle changes Continue Aspirin 81 mg QD and Metoprolol 25 mg BID; she was taken OFF Clopidogrel >1 year ago Follow up with cardiology as scheduled (2) Pure hypercholesterolemia: Code(s): E78.00 - Pure hypercholesterolemia, unspecified Category: Medical Plan: Results of her labs done a few days ago reviewed and discussed with patient Reinforced low cholesterol diet Continue Atorvastatin 80 mg QD and Ezetimibe 10 mg QD Will recheck her labs and fasting lipids in 4 months for follow up (3) Benign essential hypertension: Code(s): I10 - Essential (primary) hypertension Category: Medical Plan: Reinforced low sodium diet - goal is systolic BP of at least 130 mm or less Continue Hydrochlorothiazide 25 mg QD, Losartan 50 mg QD and Metoprolol 25 mg BID (4) Acquired hypothyroidism: Comment: 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 Code(s): E03.9 - Hypothyroidism, unspecified Category: Medical Plan: Patient underwent total thyroidectomy at [facility] back in October 2023 and will require lifelong thyroid hormone supplement Her TFTs were normal on her recent labs Continue Levothyroxine 112 mcg daily 6 days a week; she skips her dose on Sundays She continues to follow up with endocrinology at [facility] She is advised again to remind [facility] to send us a copy of her OV notes everytime she sees them as we have not been getting any correspondence from [facility] for the past couple of years now (5) Ascending aortic aneurysm: Code(s): I71.2 - Thoracic aortic aneurysm, without rupture Category: Medical Qualifiers: Presence of rupture: without rupture Qualified Code(s): I71.21 - Aneurysm of the ascending aorta, without rupture Plan: (+) Thoracic aortic aneurysm - stable on last echocardiogram in 06/2021; measurement was at 4.0 cm at the ascending aorta Echocardiogram done in December 2022 also showed the aneurysmal dilatation to be at 4.0 cm Follow-up with cardiology as scheduled and she will likely have repeat imaging studies again sometime this year for follow up (6) Impaired fasting glucose: Code(s): R73.01 - Impaired fasting glucose Category: Medical Plan: Her HgbA1c was at 6.0% on her recent labs; was previously at 5.8% a few months ago Reinforced low calorie diet/exercise as tolerated/lose weight Will continue to monitor her HgbA1c and FBS regularly (7) Vitamin D deficiency: Code(s): E55.9 - Vitamin D deficiency, unspecified Category: Medical Plan: Continue Vitamin D3 1000 units QD Patient apparently has never had osteoporosis screening done in the past - will have her start by getting her initial / index BMD done (8) GERD without esophagitis: Code(s): K21.9 - Gastro-esophageal reflux disease without esophagitis Category: Medical Plan: Dietary restrictions reinforced (9) Osteoarthritis of hands, bilateral: Code(s): M19.041 - Primary osteoarthritis, right hand; M19.042 - Primary osteoarthritis, left hand Category: Medical Qualifiers: Osteoarthritis type: primary Qualified Code(s): M19.041 - Primary osteoarthritis, right hand; M19.042 - Primary osteoarthritis, left hand Plan: X-rays of both hands done back in January 2020 showed (+) mild OA changes in both hands and fingers She is reminded to continue with regular hand and finger exercises to help manage her pain and reduce her joint stiffness (10) PMS (premenstrual syndrome): Code(s): N94.3 - Premenstrual tension syndrome Category: Medical Plan: Continue Fluoxetine 10 mg QD (11) Primary insomnia: Code(s): F51.01 - Primary insomnia Category: Medical Plan: Sleep hygiene reinforced She used to take Trazodone 50 mg Q HS PRN but has not needed any Rx for sleep in a while now Plan Follow up in 4 months Orders: Orders XR DEXA axial skeleton Today Z78.0 - Asymptomatic menopausal state Free T4 (Free Thyroxine) 4 Months E03.9 - Hypothyroidism, unspecified Thyroid Stimulating Hormone 4 Months E03.9 - Hypothyroidism, unspecified Vitamin D 25-OH Total 4 Months E55.9 - Vitamin D deficiency, unspecified Complete Blood Count Auto Diff 4 Months D64.9 - Anemia, unspecified Comprehensive [place]. Panel Fast 4 Months E78.00 - Pure hypercholesterolemia, unspecified Lipid Panel 4 Months E78.00 - Pure hypercholesterolemia, unspecified UA CC w/rflx Micro + Cult 4 Months R30.0 - Dysuria
--- OUTSIDE RECORDS SUMMARY | 2024-06-24 15:26 | XMS_ITS | Continuity of Care Document ---
Author Organization [facility] Address [address] [place] [id number]- Care Team Providers Care Division Human Resources Manager Name Role Phone Todd Weston MD Primary Care Physician Encounter [facility] [place] Date(s): 04/29/24 - 05/29/24 [facility] [address] [place] [id number] Encounter Type: Triage Allergies, Adverse Reactions, Alerts Substance Criticality Severity Reaction Reaction Severity Status sulfa drugs Increase in WBC Ac tive Medications aspirin 81 mg oral delayed release tablet 81 mg, By Mouth, Daily, # 30 tablet, Refills 3, Tot. Refills 3, Maintenance, 09/09/20 11:51:00 AM EDT, Route to Pharmacy Electronically, [facility], Partial fill upon patient request if the prescription is for a schedule II opioid drug., 170, cm, 09/09/20 8:30:00 EDT, Height, 66.5, kg,09/06/20 5:43:00 EDT, Dry Weight Start Date: 09/09/20 Stop Date: 01/07/21 Status: Ordered Quantity: 30.0 Unit: tablet Repeat number: 4 atorvastatin 80 mg oral tablet 1 tablet = 80 mg, By Mouth, Daily, # 30 tablet, 3 Refills, Maintenance, 09/09/20 11:52:00 AM EDT, Tablet, [facility], Partial fill upon patient request if the prescription is for a schedule II opioid drug., 170, cm, 09/09/20 8:30:00 EDT, Height, 66.5, kg, 09/06/20 5:43:00 EDT, Dry Weight Start Date: 09/09/20 Status: Ordered Quantity: 30.0 Unit: tablet Repeat number: 4 Colace sodium 100 mg oral capsule 100 mg, 1, capsule, By Mouth, 2 times a day, PRN, with plenty of water, # 20 capsule, Refills 1, Tot. Refills 1, Maintenance, for constipation, 11/21/23 7:18:00 AM EDT, Route to Pharmacy Electronically, [facility]/pharmacy #[id number], Partial fill upon patient request if the prescription is for a schedule II opioid drug., 168, cm, 11/21/23 5:47:00 EDT, Height, 59.2, kg, 11/20/23 18:12:00 EDT, Dry Weight Start Date: 11/21/23 Status: Ordered Quantity: 20.0 Unit: capsule Repeat number: 2 ezetimibe 10 mg oral tablet TAKE 1 TABLET BY MOUTH DAILY Start Date: 01/19/23 Status: Ordered Repeat number: 1 FLUoxetine 10 mg oral capsule TAKE 1 CAPSULE ORALLY EVERY MORNING Start Date: 11/06/23 Status: Ordered Repeat number: 1 hydrochlorothiazide 25 mg oral tablet 25 mg, 1, tablet, By Mouth, Daily, # 30 tablet, Refills 0, Maintenance, 09/06/20 6:13:00 AM EDT, Partial fill upon patient request if the prescription is for a schedule II opioid drug. Start Date: 09/06/20 Status: Ordered Quantity: 30.0 Unit: tablet Repeat number: 1 levothyroxine 0.1 mg oral tablet 1 tablet = 100 mcg, By Mouth, Daily, # 60 tablet, 2 Refills, Maintenance, 01/09/24 7:58:00 AM EDT, Tablet, [facility]/pharmacy #[id number], Partial fill upon patient request if the prescription is for a schedule II opioid drug., 168, cm, 12/21/23 16:17:00 EDT, Height, 59.2, kg, 11/20/23 18:12:00 EDT, Dry Weight Start Date: 01/09/24 Status: Ordered Quantity: 60.0 Unit: tablet Repeat number: 3 Indication: Hypothyroidism, unspecified losartan 25 mg oral tablet TAKE 1 TABLET BY MOUTH EVERY DAY Start Date: 11/06/23 Status: Ordered Repeat number: 1 metoprolol 25 mg oral tablet 25 mg, 1, tablet, By Mouth, 2 times a day, # 60 tablet, Refills 3, Tot. Refills 3, Maintenance, 09/09/20 11:51:00 AM EDT, Route to Pharmacy Electronically, [facility], Partial fill upon patient request if the prescription is for a schedule II opioid drug., 170, cm, 09/09/20 8:30:00 EDT, Height, 66.5, kg, 09/06/20 5:43:00 EDT, Dry Weight Start Date: 09/09/20 Status: Ordered Quantity: 60.0 Unit: tablet Repeat number: 4 oxyCODONE 5 mg oral tablet 5 mg, 1, tablet, By Mouth, Every 6 hours, PRN, The patient may fill in an amount not to exceed the recommended full quantity indicated., # 5 tablet, Refills 0, Tot. Refills 0, Maintenance, for pain, 11/21/23 7:18:00 AM EDT, Route to Pharmacy Electronically, [facility]/pharmacy #[id number], Partial fill upon patient request if the prescription is for a schedule II opioid drug., 168, cm, 11/21/23 5:47:00 EDT, Height, 59.2, kg, 11/20/23 18:12:00 EDT, Dry Weight Start Date: 11/21/23 Status: Ordered Quantity: 5.0 Unit: tablet Repeat number: 1 Tylenol Extra Strength 500 mg oral tablet 2 tablet = 1,000 mg, By Mouth, 3 times a day, PRN for pain, # 24 tablet, 0 Refills, Maintenance, 11/21/23 7:18:00 AM EDT, Tablet, [facility]/pharmacy #[id number], Partial fill upon patient request if the prescription is for a schedule II opioid drug., 168, cm, 11/21/23 5:47:00 EDT, Height, 59.2, kg, 11/20/23 18:12:00 EDT, Dry Weight Start Date: 11/21/23 Status: Ordered Quantity: 24.0 Unit: tablet Repeat number: 1 VITAMIN D3 1,000 UNIT SOFTGEL VITAMIN D3 1,000 UNIT SOFTGEL, TAKE 1 CAPSULE BY MOUTH EVERY DAY Start Date: 11/06/23 Status: Ordered Repeat number: 1 Problem List Condition Confirmation Course Effective Dates Status H ealth Status Informant Hypertension Confirmed Active Coronary artery disease Confirmed Active Graves' disease Confirmed Active History of non-ST elevation myocardial infarction (NSTEMI) Confirmed Active Hyperlipidemia Confirmed Active Vitamin D deficiency Confirmed Active Social History Social History Type Response Tobacco Other: Former smoker . Sex Sex Representation Female (finding) Patient Care team information Care Team Personnel Name: Enrico RODRIGEZ, Todd Milligan Position: Reference Physician Member Role: PCP Address: [address] [place] [address] Drive [address] [place] [address]- Telecom: Name: Elizabeth Hernandez RN Position: [facility] RN Member Role: Primary Care Nurse Name: Kal Gonzalez MD Position: S Outreach Member Role: Lifetime Consulting Physician Address: [address] [facility] [address] [facility], [place] [address]- Telecom: Name: Juana Ochoa RN Position: S RN Member Role: Primary Care Nurse Name: Zay GLASGOW, Violet Deng Position: S RN Member Role: Primary Care Nurse Care Team Related Persons Name: DAVID MOE Insurance Providers Guarantor name: MONISHA LEONARDMATTHEWShannon Health Plan Information #: 1 Payer: MEDICARE PART B OUTPT Member Number: NA Policy Number: NA Group Number: NA Health Plan Information #: 2 Payer: [facility] Member Number: NA Policy Number: NA Group Number: NA
== END 2024-06-24 11:30 | disposition home or self-care (01) ==
PROVIDERS: PCP Internal Medicine; Visit Provider Internal Medicine
DX: I25.10 Atherosclerotic heart disease of native coronary artery without angina pectoris (principal); I71.21 Aneurysm of the ascending aorta, without rupture; E78.00 Pure hypercholesterolemia, unspecified; I10 Essential (primary) hypertension; E03.9 Hypothyroidism, unspecified; R73.01 Impaired fasting glucose; E55.9 Vitamin D deficiency, unspecified; K21.9 Gastro-esophageal reflux disease without esophagitis; M19.041 Primary osteoarthritis, right hand; M19.042 Primary osteoarthritis, left hand; N94.3 Premenstrual tension syndrome; F51.01 Primary insomnia

== ENCOUNTER → 2024-06-24 10:41 | Outpatient (BNVA) | payer MEDICARE, OTHER, SELFPAY | PROVIDERS: PCP Internal Medicine; Visit Provider Internal Medicine | DX: I25.10 Atherosclerotic heart disease of native coronary artery without angina pectoris (principal); E78.00 Pure hypercholesterolemia, unspecified; I10 Essential (primary) hypertension; E03.9 Hypothyroidism, unspecified; I71.21 Aneurysm of the ascending aorta, without rupture; R73.01 Impaired fasting glucose; E55.9 Vitamin D deficiency, unspecified; K21.9 Gastro-esophageal reflux disease without esophagitis; M19.041 Primary osteoarthritis, right hand; M19.042 Primary osteoarthritis, left hand; N94.3 Premenstrual tension syndrome; F51.01 Primary insomnia | CPT/HCPCS: 96127; 99212 ==

== ENCOUNTER 2024-09-18 11:17 | Outpatient (REF) | payer MEDICARE, OTHER, SELFPAY ==
--- NOTE | ~2024-09-18 | US_ITS ---
CLINICAL HISTORY: N20.0 - Calculus of kidney US Renal Comparison: None Findings: Right kidney normal size and echotexture, 10.8 cm length. Multiple small benign cysts the largest measuring up to 10 mm Left kidney normal size and echotexture, 11.4 cm length. Benign 7 mm cyst. No collecting system dilatation of either kidney. Normal color Doppler. Urinary bladder is unremarkable. Prevoid volume 300 mL. Postvoid volume 5 mL. Bilateral ureteral jets are visualized. IMPRESSION: 1. Normal kidneys. No current calculus or obstruction. This document has been electronically signed by: Portillo Martins MD on 09/19/2024 08:23:36
== END 2024-09-18 11:18 | disposition home or self-care (01) ==
LOC: HO.US 11:17
PROVIDERS: PCP Internal Medicine; Visit Provider Nurse Practitioner Family
DX: R31.29 Other microscopic hematuria (principal); N28.1 Cyst of kidney, acquired; N20.0 Calculus of kidney
CPT/HCPCS: 76770

== ENCOUNTER → 2024-09-18 11:19 | Outpatient (BNV) | payer MEDICARE, OTHER, SELFPAY | PROVIDERS: PCP Internal Medicine; Visit Provider Radiology Vascular & Interventional Radiology | DX: N20.0 Calculus of kidney (principal) | CPT/HCPCS: 76770 ==

== ENCOUNTER 2024-10-22 07:54 | Outpatient (REF) | payer MEDICARE, OTHER, SELFPAY ==
[2024-10-22 08:05] LABS: MANUAL DIFF FLAG NO
[2024-10-22 09:09] LABS: Basophils Absolute Auto 0.1 X10*3/uL (0.0-0.2); Basophils Percent Auto 0.8 % (0-2); Eosinophils Absolute Auto 0.3 X10*3/uL (0.0-0.4); Hematocrit 43.2 % (37.0-47.0); Hemoglobin 14.7 g/dl (12.0-16.0); Imm Gran Abs Auto 0.04 X10*3/uL (0.00-0.03); Imm Gran Pct Auto 0.5 % (0.0-0.4); Lymphocytes Absolute Auto 2.9 X10*3/uL (1.2-4.9); Lymphocytes Percent Auto 34.3 % (20-40); Mean Corpuscular Hemoglobin 31.7 pg (27.0-33.0); Mean Corpuscular Volume 93.1 fL (80.0-98.0); Mean Platelet Volume 10.5 fL (9.4-12.3); Monocytes Absolute Auto 0.7 X10*3/uL (0.1-1.2); Monocytes Percent Auto 8.5 % (2-11); Neutrophils Absolute Auto 4.5 x10*3/uL (2.0-8.3); Neutrophils Percent Auto 52.9 % (45-73); Platelet Count 274 X10*3/uL (160-400); Red Blood Count 4.64 X10*6/uL (4.20-5.50); Red Cell Distribution Width 13.3 % (11.0-16.0); White Blood Count 8.5 X10*3/uL (4.8-10.8)
[2024-10-22 09:21] LABS: Appearance Urine Clear; Color Urine Dark Yellow; Glucose Urine UA Negative (Negative); Leukocyte Esterase Urine Small (1+) (Negative); Nitrite Urine Negative (Negative); PH 7.5 (5.0-9.0); Specific Gravity - Urine 1.025 (1.005-1.025); UMIC TRIGGER UACC YES; Urine Blood Trace (Negative); Urine Ketones Trace mg/dL (Negative); Urine Protein 30 (1+) mg/dL (Neg-Trace)
[2024-10-22 09:59] LABS: Alanine Aminotransferase 17 U/L (0-31); Albumin Level 4.2 g/dL (3.5-5.0); Alkaline Phosphatase 80 U/L (39-117); Anion Gap 11 (12-20); Aspartate Amino Transferase 24 U/L (5-31); Bilirubin Total 0.8 mg/dL (0.0-1.0); Blood Urea Nitrogen 15 mg/dL (9-16); Calcium 9.4 mg/dL (8.4-10.2); Carbon Dioxide 31 mmol/L (22-29); Chloride 105 mmol/L (96-108); Cholesterol 149 mg/dL (<200); Estimated Glomerular Filt Rate > 60; Free T4 (Free Thyroxine) 1.06 ng/dL (0.71-1.85); Glucose Fasting 91 mg/dL (60-99); HDL Cholesterol 56 mg/dL (>40); LDL Cholesterol Calculated 74 mg/dL (<100); Potassium 4.2 mmol/L (3.3-5.1); Sodium 143 mmol/L (135-145); Thyroid Stimulating Hormone 3.67 uIU/mL (0.32-4.0); Total Protein 7.3 g/dL (6.5-8.0); Triglycerides 95 mg/dL (<150); Vitamin D 25-OH Total 45.1 ng/mL (>30)
[2024-10-22 10:00] LABS: Bacteria Urine None Seen (None Seen); Hyaline Casts Urine 0-2 /LPF (0-2); UACC Culture Trigger YES; WBC Urine 0-5 /HPF (0-5)
== END 2024-10-22 07:55 | disposition home or self-care (01) ==
LOC: HO.LAB 07:54
PROVIDERS: PCP Internal Medicine; Visit Provider Internal Medicine
DX: D64.9 Anemia, unspecified (principal); E55.9 Vitamin D deficiency, unspecified; E78.00 Pure hypercholesterolemia, unspecified; E03.9 Hypothyroidism, unspecified; R30.0 Dysuria
CPT/HCPCS: 36415; 80053; 80061; 81001; 82306; 84439; 84443; 85025; 87086

== ENCOUNTER 2024-10-23 10:43 | Outpatient (AMB) | payer MEDICARE, OTHER, SELFPAY ==
[2024-10-23 10:54] VITALS: BP 142/90; PULSE 66; O2SAT 96; BMI 22.5
--- NOTE | 2024-10-23 10:54 | MHC.PC.OV ---
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: No Accompanied by: Self / Same As Patient Allergies Sulfa (Sulfonamide Antibiotics) [SULFA (SULFONAMIDE ANTIBIOTICS)] Allergy (Unknown, Verified 10/23/24 11:22) unknown Medication List - Last Reconciled 10/23/24 by Todd Weston MD aspirin 81 mg PO DAILY atorvastatin 80 mg PO DAILY cholecalciferol (vitamin D3) (Vitamin D3) 25 mcg PO DAILY ezetimibe (Zetia) 10 mg PO DAILY fluoxetine 10 mg PO QAM hydrochlorothiazide 25 mg PO QAM hydroxyzine HCl 25 mg PO TID PRN levothyroxine 112 mcg PO DAILY losartan 50 mg PO DAILY metoprolol tartrate 25 mg PO BID Tobacco use date assessed: 10/23/24 Fall risk assessment: No Falls in past year Last assessed Fall Risk: 10/23/24 Dental Screening Dental Screen Date: 10/23/24 Did you have a dental visit in the last 12 months?: Yes Did you have a dental problem in the last 6 months where you did not have access to dental care?: No Was dental information given to patient?: Patient has dentist HPI hypothyroidism, hyperlipidemia, IFG HPI Details Patient comes in today for her follow up visit States that she feels okay She denies any headaches or dizziness Denies any chest pains, no shortness of breath No nausea/ vomiting, no pain No change in bowel habits noted She continues to follow up with endocrinology at [facility] for her thyroid issues She had her follow up labs done yesterday - to discuss her results [facility] Medical History Hyperthyroidism NSTEMI (non-ST elevation myocardial infarction) Ascending aortic aneurysm Atherosclerotic cardiovascular disease Primary insomnia PMS (premenstrual syndrome) Osteoarthritis of hands, bilateral GERD without esophagitis Vitamin D deficiency Impaired fasting glucose Acquired hypothyroidism Pure hypercholesterolemia Benign essential hypertension Surgical History Hx of total thyroidectomy History of cardiac catheterization (~08/2020) Family History Father Medical history unknown Mother Hypertension CVD (cardiovascular disease) Breast cancer metastasized to bone Social History Housing: House Alcohol intake: current Alcohol intake frequency: holidays/special occasions only Patient Tobacco Use Status: Former Tobacco user Tobacco use type: Cigarette e-Cigarette/Vaping Use: Never Used Second Hand Smoke Exposure: Yes service: No Current occupational status: retired Cognitive needs: No Hearing needs: No Vision needs: Yes Questionnaire PHQ-9 Over the last 2 weeks, how often have you been bothered by any of the following problems? 1. Little interest or pleasure in doing things: not at all 2. Feeling down, depressed, or hopeless: not at all 3. Trouble falling or staying asleep, or sleeping too much: not at all 4. Feeling tired or having little energy: not at all 5. Poor appetite or overeating: not at all 6. Feeling bad about yourself - or that you are a failure or have let yourself or your family down: not at all 7. Trouble concentrating on things, such as reading the newspaper or watching television: not at all 8. Moving or speaking so slowly that other people could have noticed. Or the opposite - being so fidgety or restless that you have been moving around a lot more than usual: not at all 9. Thoughts that you would be better off or of hurting yourself in some way: not at all Total score: 0 Depression Screening Interpretation: Negative Depression Screening Done: Yes 95820 - PHQ-9 Billing: Yes Source: Developed by Drs. Jj Watt, rIene Tapia, Ariel Cabrales and colleagues, with an educational piero from [employer]. Thrive Questionnaire Date Thrive assessed: 10/23/24 I am a: Patient What is your living situation today?: I have a steady place to live Within the past 12 months, did the food you bought not last and you didn't have the money to get more?: Never true Within the past 12 months, did you worry whether your food would run out before you got money to buy more?: Never true Do you have trouble paying for medicines?: No Do you have trouble getting transportation to medical appointments?: No Do you have trouble paying your heating and electricity bill?: No Do you have trouble taking care of your child, family member or friend?: No Do you have trouble with day-to-day activities such as bathing, preparing meals, shopping, managing finances, etc.?: No Are you currently unemployed and looking for a job?: No Are you interested in more education?: No Please select the resources that you would like help with: None Currently or been in a relationship where the following occur: No concerns reported THRIVE Score: 0 AUDIT C Alcohol Use Questionnaire (AUDIT-C) 1. How often do you have a drink containing alcohol?: 2-4 times a month 2. How many drinks containing alcohol do you have on a typical day when you are drinking?: 1 or 2 3. How often do you have six or more drinks on one occasion?: Never Total Score: 2 Score Reviewed/Action Taken: Yes YOVANY-7 AMB Questionnaire YOVANY-7 Date YOVANY - 7 assessed: 10/23/24 Feeling nervous, anxious, or on edge: 0 = Not at all Not being able to stop or control worryin = Not at all Worrying too much about different things: 0 = Not at all Trouble relaxin = Not at all Being so restless that it is hard to sit still: 0 = Not at all Becoming easily annoyed or irritable: 0 = Not at all Feeling afraid as if something awful might happen: 0 = Not at all Total YOVANY-7 score (0-4 normal; 5-9 mild; 10-14 moderate; 15-21 severe): 0 Source: Developed by Drs. Jj Watt, Irene Tapia, Ariel Cabrales and colleagues, with an educational piero from [employer]. Review of Systems Const Denies chills, Denies fatigue, Denies fever(s) and Denies headache(s) ENT Denies dysphagia, Denies dizziness, Denies otalgia, Denies headache(s), Denies neck pain, Denies odynophagia and Denies sore throat Card Denies chest pain, Denies palpitations and Denies dyspnea Resp Denies chest congestion, Denies cough and Denies dyspnea GI Denies abdominal pain, Denies constipation, Denies dysphagia, Denies diarrhea, Denies nausea, Denies odynophagia and Denies vomiting Denies difficulty voiding, Denies nocturia, Denies dysuria and Denies urinary urgency Musc Denies back pain and Denies neck pain Skin/Breast Denies rash Neuro Denies dizziness and Denies headache(s) Endo Denies fatigue and Denies palpitations Physical exam (Primary Care) Vital Signs: Last Vital Signs Pulse 66 10/23/24 10:54 BP 142/90 H 10/23/24 10:54 Pulse Ox 96 10/23/24 10:54 Oxygen Delivery Method Room Air 10/23/24 10:54 BMI result Body Mass Index 22.5 Tobacco/Smoking Status: Tobacco use Status Tobacco use date assessed 10/23/24 10/23/24 10:58 Patient Tobacco Use Status Former Tobacco user 10/23/24 10:58 Tobacco use type Cigarette 10/23/24 10:58 e-Cigarette/Vaping Use Never Used 10/23/24 10:58 PHQ-9: PHQ-9 Score PHQ-9: Total score 0 10/23/24 10:58 Depression Screening Interpretation: Negative Thrive Assessment: Date of Thrive Assessment Date Thrive assessed 10/23/24 10/23/24 10:58 Currently or been in a relationship where the following occur: No concerns reported Const General: no acute distress and alert HENMT Ears: TM's normal bilaterally and EAC's normal Throat: Yes posterior oropharynx normal and Yes tonsils normal (no TP congestion noted) Neck Neck: Yes supple and No lymphadenopathy Thyroid: other (thyroid gland absent - s/p total thyroidectomy) Resp Auscultation: clear to auscultation bilaterally, no rales and no wheezes Cardio Rate: regular rate Rhythm: regular rhythm Heart sounds: no murmurs GI Palpation (GI): Soft to palpation and nontender Auscultation: normal bowel sounds General: Yes no CVA tenderness Back/Spine/Pelvis Back: no CVA tenderness Thoracic/Lumbar Spine: No lumbar spinal tenderness Skin Rashes: no rashes Extrem General: Yes no clubbing, cyanosis or edema Results Reviewed Results Reviewed: Laboratory Tests 10/22/24 10/22/24 08:00 08:03 WBC 8.5 Hgb 14.7 Hct 43.2 Plt Count 274 Sodium 143 Potassium 4.2 Creatinine 0.63 Estimated GFR > 60 Fasting Glucose 91 Calcium 9.4 AST 24 ALT 17 Triglycerides 95 Cholesterol 149 LDL Cholesterol, Calc 74 HDL Cholesterol 56 25-OH Vitamin D Total 45.1 TSH 3.67 Free T4 1.06 Ur Specific [place] 1.025 Urine Protein 30 (1+) H Urine Glucose (UA) Negative Urine Blood Trace H Urine Nitrite Negative Ur Leukocyte Esterase Small (1+) H Coding Level of Care Code Est Pt Level 4 (14611) Complex EM visit Add On G2211 Diagnoses Atherosclerotic cardiovascular disease I25.10 Pure hypercholesterolemia E78.00 Benign essential hypertension I10 Acquired hypothyroidism E03.9 Aneurysm of ascending aorta without rupture I71.21 Presence of rupture: without rupture Impaired fasting glucose R73.01 Vitamin D deficiency E55.9 GERD without esophagitis K21.9 Primary osteoarthritis of both hands M19.041; M19.042 Osteoarthritis type: primary PMS (premenstrual syndrome) N94.3 Primary insomnia F51.01 Additional Codes PHQ-9 - 84662 - PHQ-9 Billing: Yes ([id number]) Assessment & Plan Assessment & Plan (1) Atherosclerotic cardiovascular disease: Comment: S/P NSTEMI in August 2020 Code(s): I25.10 - Atherosclerotic heart disease of [place] coronary artery without angina pectoris Category: Medical Plan: Patient again remains asymptomatic from a cardiovascular standpoint PCI was not done when she has NSTEMI back in 08/2020 due to increased risk to the LAD, as well as patient's hyperthyroid state at the time She was recommended to continue with aggressive risk reduction, including diet and lifestyle changes Continue Aspirin 81 mg QD and Metoprolol 25 mg BID; she was taken OFF Clopidogrel >1 year ago Follow up with cardiology as scheduled (2) Pure hypercholesterolemia: Code(s): E78.00 - Pure hypercholesterolemia, unspecified Category: Medical Plan: Results of her labs done yesterday reviewed and discussed with patient Reinforced low cholesterol diet Continue Atorvastatin 80 mg QD and Ezetimibe 10 mg QD Will recheck her labs and fasting lipids in 4 months for follow up (3) Benign essential hypertension: Code(s): I10 - Essential (primary) hypertension Category: Medical Plan: Reinforced low sodium diet - goal is systolic BP of at least 130 mm or less Continue Hydrochlorothiazide 25 mg QD, Losartan 50 mg QD and Metoprolol 25 mg BID (4) Acquired hypothyroidism: Comment: 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 Code(s): E03.9 - Hypothyroidism, unspecified Category: Medical Plan: Patient underwent total thyroidectomy at [facility] last year in October 2023 and will require lifelong thyroid hormone supplementation Her TFTs were again normal on her recent labs Continue Levothyroxine 112 mcg daily 6 days a week; she skips her dose on Sundays She continues to follow up with endocrinology at [facility] She is advised again to remind [facility] to send us a copy of her OV notes everytime she sees them as we have not been getting any correspondence from [facility] for the past couple of years now (5) Ascending aortic aneurysm: Code(s): I71.2 - Thoracic aortic aneurysm, without rupture Category: Medical Qualifiers: Presence of rupture: without rupture Qualified Code(s): I71.21 - Aneurysm of the ascending aorta, without rupture Plan: (+) Thoracic aortic aneurysm - stable on last echocardiogram in 06/2021; measurement was at 4.0 cm at the ascending aorta Echocardiogram done in December 2022 also showed the aneurysmal dilatation to be at 4.0 cm Her most recent echocardiogram done in 01/2024 revealed similar findings - left ventricular systolic function is normal with the calculated ejection fraction at 61% by biplane method. There is mild aortic valve regurgitation and mild dilatation of the ascending aorta measuring 4.00 cm Follow-up with cardiology as scheduled (6) Impaired fasting glucose: Code(s): R73.01 - Impaired fasting glucose Category: Medical Plan: Her HgbA1c was at 6.0% when last checked a few months ago; was previously at 5.8% last year Reinforced low calorie diet/exercise as tolerated/lose weight Will continue to monitor her HgbA1c and FBS regularly (7) Vitamin D deficiency: Code(s): E55.9 - Vitamin D deficiency, unspecified Category: Medical Plan: Continue Vitamin D3 1000 units QD Patient apparently has never had osteoporosis screening done in the past - we ordered her BMD last time but it has not yet been scheduled Will reorder her BMD (8) GERD without esophagitis: Code(s): K21.9 - Gastro-esophageal reflux disease without esophagitis Category: Medical Plan: Dietary restrictions reinforced (9) Osteoarthritis of hands, bilateral: Code(s): M19.041 - Primary osteoarthritis, right hand; M19.042 - Primary osteoarthritis, left hand Category: Medical Qualifiers: Osteoarthritis type: primary Qualified Code(s): M19.041 - Primary osteoarthritis, right hand; M19.042 - Primary osteoarthritis, left hand Plan: X-rays of both hands done back in January 2020 showed (+) mild OA changes in both hands and fingers She is reminded to continue with regular hand and finger exercises to help manage her pain and reduce her joint stiffness (10) PMS (premenstrual syndrome): Code(s): N94.3 - Premenstrual tension syndrome Category: Medical Plan: Continue Fluoxetine 10 mg QD (11) Primary insomnia: Code(s): F51.01 - Primary insomnia Category: Medical Plan: Sleep hygiene reinforced She used to take Trazodone 50 mg Q HS PRN but has not needed any Rx for sleep in a while now Plan Follow up in 4 months Orders: Orders XR DEXA axial skeleton Today Z78.0 - Asymptomatic menopausal state Complete Blood Count Auto Diff 4 Months D64.9 - Anemia, unspecified Free T4 (Free Thyroxine) 4 Months E03.9 - Hypothyroidism, unspecified Hemoglobin A1c 4 Months R73.01 - Impaired fasting glucose Vitamin D 25-OH Total 4 Months E55.9 - Vitamin D deficiency, unspecified Comprehensive [place]. Panel Fast 4 Months E78.00 - Pure hypercholesterolemia, unspecified Lipid Panel 4 Months E78.00 - Pure hypercholesterolemia, unspecified Thyroid Stimulating Hormone 4 Months E03.9 - Hypothyroidism, unspecified UA CC w/rflx Micro + Cult 4 Months R30.0 - Dysuria Vitamin B12 and Folate 4 Months E53.8 - Deficiency of other specified B group vitamins
== END 2024-10-23 11:42 | disposition home or self-care (01) ==
LOC: HO.HMCH 10:44
PROVIDERS: PCP Internal Medicine; Visit Provider Internal Medicine
DX: I25.10 Atherosclerotic heart disease of native coronary artery without angina pectoris (principal); E78.00 Pure hypercholesterolemia, unspecified; I10 Essential (primary) hypertension; E03.9 Hypothyroidism, unspecified; I71.21 Aneurysm of the ascending aorta, without rupture; R73.01 Impaired fasting glucose; E55.9 Vitamin D deficiency, unspecified; K21.9 Gastro-esophageal reflux disease without esophagitis; M19.041 Primary osteoarthritis, right hand; M19.042 Primary osteoarthritis, left hand; N94.3 Premenstrual tension syndrome; F51.01 Primary insomnia

== ENCOUNTER → 2024-10-23 10:43 | Outpatient (BNVA) | payer MEDICARE, OTHER, SELFPAY | PROVIDERS: PCP Internal Medicine; Visit Provider Internal Medicine | DX: I25.10 Atherosclerotic heart disease of native coronary artery without angina pectoris (principal); E78.00 Pure hypercholesterolemia, unspecified; I10 Essential (primary) hypertension; E03.9 Hypothyroidism, unspecified; I71.21 Aneurysm of the ascending aorta, without rupture; R73.01 Impaired fasting glucose; E55.9 Vitamin D deficiency, unspecified; K21.9 Gastro-esophageal reflux disease without esophagitis; M19.041 Primary osteoarthritis, right hand; M19.042 Primary osteoarthritis, left hand; N94.3 Premenstrual tension syndrome; F51.01 Primary insomnia | CPT/HCPCS: 96127; 99212 ==

== ENCOUNTER 2024-10-30 13:27 | Outpatient (REF) | payer MEDICARE, OTHER, SELFPAY ==
[2024-10-30 16:49] LABS: Urine Cytology See Pathology rpt
== END 2024-10-30 13:28 | disposition home or self-care (01) ==
LOC: HO.LAB 13:27
PROVIDERS: PCP Internal Medicine; Visit Provider Nurse Practitioner Family
DX: R31.29 Other microscopic hematuria (principal); N20.0 Calculus of kidney; N28.1 Cyst of kidney, acquired
CPT/HCPCS: 81003; 88112; 99212

== ENCOUNTER 2024-10-30 13:27 | Outpatient (AMB) | payer MEDICARE, OTHER, SELFPAY ==
--- NOTE | 2024-10-30 13:35 | A.OFFVIS_ITS ---
Intake Visit Reasons: 1YR US Intake Note: Pt presents to the office today for a 1 year follow up/US. Urology meds:None Blood thinners:Aspirin Allergies Sulfa (Sulfonamide Antibiotics) [SULFA (SULFONAMIDE ANTIBIOTICS)] Allergy (Unknown, Verified 10/30/24 13:54) unknown Medication List - Last Reconciled 10/30/24 by ANANT Wylie- aspirin 81 mg PO DAILY atorvastatin 80 mg PO DAILY cholecalciferol (vitamin D3) (Vitamin D3) 25 mcg PO DAILY ezetimibe (Zetia) 10 mg PO DAILY fluoxetine 10 mg PO QAM hydrochlorothiazide 25 mg PO QAM hydroxyzine HCl 25 mg PO TID PRN levothyroxine 112 mcg PO DAILY losartan 50 mg PO DAILY metoprolol tartrate 25 mg PO BID HPI Comments Details: Bernice is a pleasant 69-year-old female patient of Dr. Weston. She has a past medical history of hyperthyroidism, ascending aortic aneurysm, atherosclerotic cardiovascular disease status post NSTEMI August 2020, insomnia, osteoarthritis, GERD, vitamin-D deficiency, hypercholesteremia, and hypertension. She presents to the office today for follow-up of her microscopic hematuria, nephrolithiasis, and renal cysts. In discussion with the patient today she reports to be doing and feeling well. She denies having had any bothersome urinary issues or concerns since her last office visit here over a year ago. Recent renal imaging results reviewed with the patient today 09/20 bilateral kidneys are normal in size and echotexture. Multiple small benign right renal cysts largest measuring 10 mm. Left benign 7 mm cyst. The urinary bladder is unremarkable. Bilateral ureteral jets are demonstrated. In office urinalysis results reviewed with the patient today 2+ microscopic hematuria otherwise within normal limits. She discusses at length her longstanding history of microscopic hematuria we did discuss microscopic hematuria in the setting of nicotine dependence and further workup in risks and benefits of these interventions. She reports smoking for approximately 15 years however quit over 40 years ago. When asked she does report noting episodes of stress incontinence she otherwise denies urinary urgency, urinary frequency, nocturia, hematuria, dysuria, foul smelling urine, changes to urinary stream, flank pain, fever, and or chills. She is happy with her current voiding parameters. She otherwise offers no other issues or concerns at this time. Urine cytology 09/19 Negative for high-grade urothelial carcinoma. PFSH Medical History Hyperthyroidism NSTEMI (non-ST elevation myocardial infarction) Ascending aortic aneurysm Atherosclerotic cardiovascular disease Primary insomnia PMS (premenstrual syndrome) Osteoarthritis of hands, bilateral GERD without esophagitis Vitamin D deficiency Impaired fasting glucose Acquired hypothyroidism Pure hypercholesterolemia Benign essential hypertension Surgical History Hx of total thyroidectomy History of cardiac catheterization (~08/2020) Family History Father Medical history unknown Mother Hypertension CVD (cardiovascular disease) Breast cancer metastasized to bone Social History Housing: House Alcohol intake: current Alcohol intake frequency: holidays/special occasions only Patient Tobacco Use Status: Former Tobacco user Tobacco use type: Cigarette e-Cigarette/Vaping Use: Never Used Second Hand Smoke Exposure: Yes service: No Current occupational status: retired Cognitive needs: No Hearing needs: No Vision needs: Yes Review of Systems Eyes Reports no additional complaints ENT Reports no additional complaints Card Reports as per HPI Resp Reports no additional complaints GI Reports as per HPI Reports as per HPI Musc Reports as per HPI Neuro Reports no additional complaints Psych Reports as per HPI Endo Reports as per HPI [place]/Lymph Reports no additional complaints Aller/Immun Reports no additional complaints Physical Exam Const General: cooperative, healthy appearing, comfortable, no acute distress, well developed, alert and awake Orientation/consciousness: patient oriented x3 Limitations: no limitations HEENT Head: Yes normal to inspection, Yes normocephalic and Yes atraumatic Ears: hearing grossly normal bilaterally Eyes General: appearance normal, both eyes and all related structures Neck Neck: Yes normal visual inspection and Yes trachea midline Chest Chest palpation & inspection: normal inspection of the chest Resp Effort & Inspection: normal respiratory effort and able to speak in complete sentences Cardio Rate: regular rate GI Inspection: Yes normal to inspection General: Yes no CVA tenderness Back/Spine/Pelvis Back: no CVA tenderness Skin General skin exam: no rashes or lesions noted Neuro General: patient oriented x3 Extrem General: Yes normal to inspection Psych Appearance: grossly normal and well kempt Mental Status: mental status grossly normal Speech and movement: Normal speech and movement present and Clear speech present Affect: normal affect Attitude: cooperative Thought process: Normal thought process present Thought content: Normal thought content present Insight: Fair insight present (Psych) Judgement: Fair judgement present (Psych) Results AMB Urinalysis, Automated UA Leukoctes 0 Edgar/uL Last Edit by Darby Vasquez CMA on 10/30/24 13:43 UA Nitrite Negative Last Edit by Darby Vasquez CMA on 10/30/24 13:43 UA Urobilinogen 0.2 mg/dL Last Edit by Darby Vasquez CMA on 10/30/24 13:43 UA Protein 15 mg/dL Last Edit by Darby Vasquez CMA on 10/30/24 13:43 UA pH 5.5 Last Edit by Darby Vasquez CMA on 10/30/24 13:43 UA Blood 80 Erasmo/uL Last Edit by Darby Vasquez CMA on 10/30/24 13:43 UA Specific [place] 1.030 Last Edit by Darby Vasquez CMA on 10/30/24 13:43 UA Ketone Negative Last Edit by Darby Vasquez CMA on 10/30/24 13:43 UA Bilirubin 0 mg/dL Last Edit by Darby Vasquez CMA on 10/30/24 13:43 UA Glucose 0 mg/dL Last Edit by Darby Vasquez CMA on 10/30/24 13:43 Results Reviewed Results Reviewed: Laboratory Last Values Urine pH (Auto) 5.5 10/30/24 13:36 Specific [place] (Auto) 1.030 10/30/24 13:36 Urine Protein (Auto) 15 mg/dL 10/30/24 13:36 Glucose (UA)(Auto) 0 mg/dL 10/30/24 13:36 Urine Ketones (Auto) Negative 10/30/24 13:36 Urine Blood (Auto) 80 Erasmo/uL 10/30/24 13:36 Urine Nitrite (Auto) Negative 10/30/24 13:36 Urine Bilirubin (Auto) 0 mg/dL 10/30/24 13:36 Urine Urobilinogen (Auto) 0.2 mg/dL 10/30/24 13:36 Leukocyte Esterase (Auto) 0 Edgar/uL 10/30/24 13:36 Date of Service: 09/18/24 Procedure(s): US retroperitoneal comp US Renal Comparison: None Findings: Right kidney normal size and echotexture, 10.8 cm length. Multiple small benign cysts the largest measuring up to 10 mm Left kidney normal size and echotexture, 11.4 cm length. Benign 7 mm cyst. No collecting system dilatation of either kidney. Normal color Doppler. Urinary bladder is unremarkable. Prevoid volume 300 mL. Postvoid volume 5 mL. Bilateral ureteral jets are visualized. IMPRESSION: 1. Normal kidneys. No current calculus or obstruction. Assessment & Plan Assessment & Plan (1) Microscopic hematuria: Code(s): R31.29 - Other microscopic hematuria Category: Medical (2) Nephrolithiasis: Code(s): N20.0 - Calculus of kidney Category: Medical (3) Renal cyst: Code(s): N28.1 - Cyst of kidney, acquired Category: Medical Plan In office urinalysis results with the patient today; as noted above; will send for urine cytology. Recent retroperitoneal ultrasound results reviewed with the patient today; as noted above. Will continue with surveillance monitoring of microscopic hematuria, nephrolithiasis, and renal cyst. She currently denies any bothersome urinary issues or concerns. She reports be happy with current voiding parameters. Will obtain renal ultrasound in 1 year Follow-up in 1 year with imaging; or sooner with any issues, concerns, and or questions. Orders: Orders AMB Urinalysis Automated Today R31.29 - Other microscopic hematuria Urine Cytology Today R31.29 - Other microscopic hematuria Patient Instructions: The patient had an opportunity to ask questions regarding the treatment plan. All questions were answered. Physical exam, labs, and imaging were discussed and reviewed in detail. As well as risks, benefits, and discussion of treatment choices. No major barriers to understanding were identified. The patient expressed understanding and agreement with the above treatment plan. The patient was made aware they should contact our office by phone for worsening of their current condition, the appearance of new symptoms, or with any questions or concerns. Compliance is encouraged with any medications and follow up testing that is ordered. It is a privilege to be allowed the opportunity to participate in? your urological care.? Again, if you have any questions or concerns If you have any questions or concerns please do not hesitate to contact me. The office is [phone]. This note is constructed using voice recognition software. While every effort has been made to ensure accuracy dowel maker errors may have been included. Yours sincerely, Jaqui Siddiqi, FACTORY SUPERINTENDENT-[employer] Coding Level of Care Code Est Pt Level 3 (32631) Complex EM visit Add On G2211 Diagnoses Microscopic hematuria R31.29 Nephrolithiasis N20.0 Renal cyst N28.1
== END 2024-10-30 14:04 | disposition home or self-care (01) ==
LOC: HO.HUSH 13:32
PROVIDERS: PCP Internal Medicine; Visit Provider Nurse Practitioner Family
DX: R31.29 Other microscopic hematuria (principal); N20.0 Calculus of kidney; N28.1 Cyst of kidney, acquired
CPT/HCPCS: 99213; G2211

== ENCOUNTER 2024-11-26 10:25 | Outpatient (REF) | payer MEDICARE, OTHER, SELFPAY ==
--- NOTE | ~2024-11-26 | MM_ITS ---
EXAMINATION: DXA BONE DENSITY AXIAL HISTORY: Z78.0 - Asymptomatic menopausal state TECHNIQUE: [employer] Dual energy absorptiometry (DEXA) of the lumbar spine, total left hip, and femoral neck was performed. COMPARISON: There are no prior studies for comparison. FINDINGS: The bone mineral density of the lumbar spine is 1.111 g/cm2, corresponding to a T-score of -0.6, and a Z-score of 1.2. This is indicative of normal bone mineral density. The bone mineral density of the left total hip is 0.965 g/cm2, corresponding to a T-score of -0.3, and a Z-score of 1.2. This is indicative of normal bone mineral density. The bone mineral density of the left femoral neck is 0.894 g/cm2, corresponding to a T-score of -1.0, and a Z-score of 0.7. This is indicative of normal bone mineral density. MM/XR DEXA axial skeleton IMPRESSION: Based on bone mineral density, and according to World Health Organization (WHO) criteria, the diagnosis is consistent with normal bone mineral density. Statistically, 68% of repeat scans fall within 1 SD (+/- 0.010 g/cm2 for AP spine L1-L4) and 1 SD (+/- 0.012 g/cm2 for femur total) FRAX is a trademark of the [employer], a World Health Organization (WHO) Collaborating Center. Electronically signed by: Jj Mccallum MD 11/26/2024 11:21 AM EDT
--- OUTSIDE RECORDS SUMMARY | 2024-11-26 11:36 | XMS_ITS | Patient Health Record ---
Author Organization [facility] Address [address] [place] [id number] Care Team Providers Care Offal Separator Name Role Phone Enrico RODRIGEZ, Todd Primary Care Provider Vinayak Mendoza Jr Unavailable Allergies Allergen (clinical drug ingredient) Drug/Non Drug Allergy documented on EMR Reaction Allergy Type Onset Date Status Sulfa Unknown Drug Allergy Active Reason For Referral No Information Medications Medication SIG (Take, Route, Frequency, Duration) Notes Start Date End Date Status Suprep Bowel Prep 1 as directed Orally 1 for 1 dose 06/18/2014 Active Vitamin D 1000 UNIT 1 tablet Orally Once a day Active Fluoxetine & Diet Manage Prod 10 MG Orally Active Simvastatin 20 MG 1 tablet in the even ing Orally Once a day Active Losartan Potassium-HCTZ 100-25 MG 1 tablet Orally Once a day Active Social History Tobacco Use: Social History Observation Description Date Details (start date - stop date) Never Smoker NA - NA Tobacco Use/Smoking Question Answer Notes Patient is a nonsmoker Alcohol Screen Question Answer Notes Did you have a drink contain ing alcohol in the past year? Yes How often did you have a dri nk containing alcohol in the past year? 4 or more times a week (4 points) How many drinks did you have on a typical day when you were drinking in the past year? 1 or 2 drinks (0 point) How often did you have 6 or more drinks on one occasion in the past year? Never (0 point) Points 4 Interpretation Positive Problems Problem Type SNOMED Code ICD Code Onset Dates Problem Status W/U Status Risk Notes Problem 19205956 Change in bowel habits (787.99) Active confirmed Problem 985644416 Abnormal findings in stool (792.1) Active confirmed Plan Of Treatment Future Test Test Name Order Date COLONOSCOPY 06/18/2014 Insurance Providers Payer Name Payer Address Payer Phone Subscriber Number Group Number Insured Name Patient Relationship to Insured Coverage Start Date Coverage End Date [employer] [address] [address] [place] [phone] [id number] MONISHA MOE Self - patient is the insured Medical (General) History Medical History History ICD Code colonoscopy 03/14/2008 hypertension elevated Cholesterol Denies [place],DM,CVA,Lung disease,renal dise ase Surgical History Surgery Date(Month/Year) tubal ligation section
== END 2024-11-26 10:26 | disposition home or self-care (01) ==
LOC: HO.MAMMO 10:25
PROVIDERS: PCP Internal Medicine; Visit Provider Internal Medicine
DX: Z13.820 Encounter for screening for osteoporosis (principal); Z78.0 Asymptomatic menopausal state
CPT/HCPCS: 77080

== ENCOUNTER → 2024-11-26 10:30 | Outpatient (BNV) | payer MEDICARE, OTHER, SELFPAY | PROVIDERS: PCP Internal Medicine; Visit Provider Radiology Diagnostic Radiology | DX: E28.39 Other primary ovarian failure (principal) | CPT/HCPCS: 77080 ==

== ENCOUNTER 2025-01-29 09:29 | Outpatient (AMB) | payer MEDICARE, OTHER, SELFPAY ==
[2025-01-29 09:43] VITALS: BP 140/70; PULSE 55; BMI 21.8
--- NOTE | 2025-01-29 09:43 | MHC.OFFVIS ---
Vital Signs 01/29/25 09:43 Height 5 ft 7 in Weight 138 lb 14.259 oz BMI 21.8 BP 140/70 H Blood Pressure Location Lt brachial Position Sitting Pulse 55 Pulse Source Monitor Intake Visit Reasons: 1 yr follow up Allergies Sulfa (Sulfonamide Antibiotics) (SULFA (SULFONAMIDE ANTIBIOTICS)) Allergy (Unknown, Verified 10/30/24 13:54) unknown Medication List - Last Reconciled 01/29/25 by Gil Khoury MD aspirin 81 mg PO DAILY atorvastatin 80 mg PO DAILY cholecalciferol (vitamin D3) (Vitamin D3) 25 mcg PO DAILY ezetimibe (Zetia) 10 mg PO DAILY fluoxetine 10 mg PO QAM hydrochlorothiazide 25 mg PO QAM hydroxyzine HCl 25 mg PO TID PRN levothyroxine 112 mcg PO DAILY losartan 50 mg PO DAILY metoprolol tartrate 25 mg PO BID HPI Comments Details: Bernice returns for follow-up regarding coronary artery disease. To recall, in 2020, she was hospitalized for non ST elevation myocardial infarction. She underwent cardiac catheterization that showed diagonal disease but not intervened. Currently on medical therapy only. She was also hyperthyroid at that time and was felt that it may have precipitated the NSTEMI. She has hypertension, hyperlipidemia as well as strong family history. Her mother had bypass surgery. Overall, she feels fine. No cardiac symptoms. Blood pressure is again on the higher side but she does not do any home blood pressures. [facility] Medical History (Reviewed 10/30/24 @ 14:09 by Jaqui Siddiqi [facility]) Hyperthyroidism NSTEMI (non-ST elevation myocardial infarction) Ascending aortic aneurysm Atherosclerotic cardiovascular disease Primary insomnia PMS (premenstrual syndrome) Osteoarthritis of hands, bilateral GERD without esophagitis Vitamin D deficiency Impaired fasting glucose Acquired hypothyroidism Pure hypercholesterolemia Benign essential hypertension Surgical History Hx of total thyroidectomy History of cardiac catheterization (~08/2020) Family History Father Medical history unknown Mother Hypertension CVD (cardiovascular disease) Breast cancer metastasized to bone Social History Housing: House Alcohol intake: current Alcohol intake frequency: holidays/special occasions only Patient Tobacco Use Status: Former Tobacco user Tobacco use type: Cigarette e-Cigarette/Vaping Use: Never Used Second Hand Smoke Exposure: Yes service: No Current occupational status: retired Cognitive needs: No Hearing needs: No Vision needs: Yes Review of Systems Const Denies weakness ENT Denies dizziness Card Denies chest pain, Denies chest pain with activity, Denies syncope, Denies rapid heart rate, Denies pedal edema, Denies edema, Denies leg edema, Denies lightheadedness, Denies palpitations, Denies dyspnea, Denies dyspnea on exertion and Denies orthopnea Resp Denies cough, Denies dyspnea and Denies dyspnea on exertion GI Denies hematochezia and Denies change in stool character Musc Denies abnormal gait, Denies muscle cramps, Denies muscle weakness, Denies numbness, Denies radiating pain into limb and Denies tingling Neuro Denies abnormal gait, Denies dizziness, Denies syncope, Denies numbness, Denies tingling and Denies weakness Endo Denies palpitations Physical Exam Vital Signs: Last Vital Signs Pulse 55 01/29/25 09:43 BP 140/70 H 01/29/25 09:43 BMI result Body Mass Index 21.8 Const General: comfortable and no acute distress Orientation/consciousness: patient oriented x3 HEENT Other: Unremarkable Head: Yes normal to inspection Neck Neck: Yes normal visual inspection Chest Chest palpation & inspection: normal inspection of the chest Resp Auscultation: clear to auscultation bilaterally Cardio Palpation: normal PMI Heart sounds: S1 normal heart sound present, S2 normal heart sound present, no gallops, no murmurs and no rubs GI Palpation (GI): Soft to palpation Back/Spine/Pelvis Other: unremarkable Skin General skin exam: no rashes or lesions noted Neuro General: patient oriented x3 Extrem General: Yes normal to inspection Psych Mental Status: mental status grossly normal Office Procedures EKG Details: EKG with sinus bradycardia at 55/Min; inferior and anterolateral downsloping STs; [place]. [id number], Complete Assessment & Plan Assessment & Plan (1) Atherosclerotic cardiovascular disease: Comment: S/P NSTEMI in August 2020 Code(s): I25.10 - Atherosclerotic heart disease of [place] coronary artery without angina pectoris Category: Medical Plan: Cardiac catheterization-2020- ostial diagonal disease, medically treated. Otherwise normal coronary arteries. Suspect EKG changes are likely related to hypertension than coronary disease. Continue aspirin. Continue beta-blockers and high-dose statins. (2) Ascending aortic aneurysm: Code(s): I71.2 - Thoracic aortic aneurysm, without rupture Category: Medical Qualifiers: Presence of rupture: without rupture Qualified Code(s): I71.21 - Aneurysm of the ascending aorta, without rupture Plan: Measures 4 cm on echocardiogram. Stable. Can be monitored periodically. (3) Benign essential hypertension: Code(s): I10 - Essential (primary) hypertension Category: Medical Plan: Increase Losartan to 75 mg daily. There is already a note of her PCP for labs and advised her to do that. Plan Discussion Notes During the visit, we discussed the patient's current hypertension management and the need to adjust her medication due to slightly elevated blood pressure readings. I explained the importance of maintaining controlled blood pressure to prevent complications and the rationale for increasing her losartan dose. We also discussed the need for blood work to monitor the effects of the medication adjustment and the importance of regular follow-up visits. Patient was informed and verbally consented to the use of an ambient scribe for clinic note documentation during this visit. Orders: Orders CA echo transthoracic complete 1 Year I71.21 - Aneurysm of the ascending aorta, without rupture Medications: New losartan Total 75mg daily. 25 mg PO DAILY 90 tabs 1RF Patient Instructions: - Continue taking losartan as prescribed. - Start taking an additional 25 mg of losartan daily. - Complete blood work before the next visit with Dr. Weston. - Stay active and try to manage stress. Coding Level of Care Code Est Pt Level 4 (54914) Complex EM visit Add On G2211 Diagnoses Atherosclerotic cardiovascular disease I25.10 Aneurysm of ascending aorta without rupture I71.21 Presence of rupture: without rupture Benign essential hypertension I10 CPT Codes EKG - CPT: 12318-[id number], Complete ([id number])
--- OUTSIDE RECORDS SUMMARY | 2025-01-29 10:20 | XMS_ITS | Patient Health Record ---
Author Organization [facility] Address [address] [place] [phone] Care Team Providers Care Asphalt Paving Supervisor Name Role Phone nErico RODRIGEZ, Todd Primary Care Provider Vinayak Mendoza [...] Problem Status W/U Status Risk Notes Problem [id number] Change in bowel habits (787.99) Active confirmed Problem [id number] Abnormal findings in stool (792.1) Active confirmed Plan Of Treatment Future Test Test Name Order Date COLONOSCOPY 06/18/2014 Insurance Providers Payer Name Payer Address Payer Phone Subscriber Number Group Number Insured Name Patient Relationship to Insured Coverage Start Date Coverage End Date [employer] [address] [address] [place] [phone] [id number] MONISHA MOE Self - patient is the insured Medical (General) History Medical History History ICD Code colonoscopy 03/14/2008 hypertension elevated Cholesterol Denies [place],DM,CVA,Lung disease,renal dise ase Surgical History Surgery Date(Month/Year) tubal ligation section
== END 2025-01-29 10:01 | disposition home or self-care (01) ==
LOC: HO.HCS 09:31
PROVIDERS: PCP Internal Medicine; Visit Provider Internal Medicine
DX: I25.10 Atherosclerotic heart disease of native coronary artery without angina pectoris (principal); I71.21 Aneurysm of the ascending aorta, without rupture; I10 Essential (primary) hypertension
CPT/HCPCS: 93010; 99214; G2211

== ENCOUNTER → 2025-01-29 09:29 | Outpatient (BNVA) | payer MEDICARE, OTHER, SELFPAY | PROVIDERS: PCP Internal Medicine; Visit Provider Internal Medicine | DX: I71.21 Aneurysm of the ascending aorta, without rupture (principal); I10 Essential (primary) hypertension; I25.10 Atherosclerotic heart disease of native coronary artery without angina pectoris; I25.2 Old myocardial infarction; Z87.891 Personal history of nicotine dependence | CPT/HCPCS: 93005; 99212 ==

== ENCOUNTER 2025-02-21 07:58 | Outpatient (REF) | payer MEDICARE, OTHER, SELFPAY ==
--- OUTSIDE RECORDS SUMMARY | 2025-02-21 08:01 | XMS_ITS | Patient Health Record ---
Author Organization [facility] Address [address] [place] [phone] Care Team Providers Care Testing Consultant Name Role Phone Enrico RODRIGEZ, Todd Primary [...] Problem Status W/U Status Risk Notes Problem 86869884 Change in bowel habits (787.99) Active confirmed Problem [id number] Abnormal findings in stool (792.1) Active confirmed Plan Of Treatment Future Test Test Name Order Date COLONOSCOPY 06/18/2014 Insurance Providers Payer Name Payer Address Payer Phone Subscriber Number Group Number Insured Name Patient Relationship to Insured Coverage Start Date Coverage End Date [employer] [address] [address] [place] [phone] [id number] MONISHA MOE Self - patient is the insured Medical (General) History Medical History History ICD Code colonoscopy 03/14/2008 hypertension elevated Cholesterol Denies [place],DM,CVA,Lung disease,renal dise ase Surgical History Surgery Date(Month/Year) tubal ligation section
[2025-02-21 08:22] LABS: MANUAL DIFF FLAG NO
[2025-02-21 09:57] LABS: Hematocrit 44.7 % (37.0-47.0); Hemoglobin 15.2 g/dl (12.0-16.0); Imm Gran Abs Auto 0.02 X10*3/uL (0.00-0.03); Imm Gran Pct Auto 0.3 % (0.0-0.4); Lymphocytes Absolute Auto 2.7 X10*3/uL (1.2-4.9); Mean Corpuscular HGB Conc 34.0 g/dl (31.0-35.0); Mean Corpuscular Hemoglobin 31.3 pg (27.0-33.0); Mean Corpuscular Volume 92.0 fL (80.0-98.0); NRBC Abs Auto 0.000 X10*3/uL (0.0-0.012); NRBC Pct Auto 0.0 /100WBC (0.0-0.2); Platelet Count 303 X10*3/uL (160-400); Red Blood Count 4.86 X10*6/uL (4.20-5.50); White Blood Count 7.0 X10*3/uL (4.8-10.8)
[2025-02-21 09:59] LABS: Appearance Urine Clear; Glucose Urine UA Negative (Negative); PH 7.5 (5.0-9.0); Specific Gravity - Urine 1.015 (1.005-1.025); UMIC TRIGGER UACC YES
[2025-02-21 10:26] LABS: Alanine Aminotransferase 15 U/L (0-31); Albumin Level 4.4 g/dL (3.5-5.0); Alkaline Phosphatase 88 U/L (39-117); Anion Gap 10 (12-20); Aspartate Amino Transferase 22 U/L (5-31); Blood Urea Nitrogen 10 mg/dL (9-16); Calcium 9.4 mg/dL (8.4-10.2); Carbon Dioxide 36 mmol/L (22-29); Chloride 101 mmol/L (96-108); Cholesterol 152 mg/dL (<200); Estimated Glomerular Filt Rate > 60; HDL Cholesterol 54 mg/dL (>40); Potassium 3.9 mmol/L (3.3-5.1); Sodium 143 mmol/L (135-145); Total Protein 7.5 g/dL (6.5-8.0); Triglycerides 94 mg/dL (<150)
[2025-02-21 10:47] LABS: Free T4 (Free Thyroxine) 1.06 ng/dL (0.71-1.85); Thyroid Stimulating Hormone 1.98 uIU/mL (0.32-4.0)
[2025-02-21 10:51] LABS: Folate 8.8 ng/mL (> or = 4.0); Vitamin B12 413 pg/mL (200-900)
== END 2025-02-21 07:59 | disposition home or self-care (01) ==
LOC: HO.LAB 07:58
PROVIDERS: PCP Internal Medicine; Referring Provider Internal Medicine; Visit Provider Internal Medicine
DX: E53.8 Deficiency of other specified B group vitamins (principal); D64.9 Anemia, unspecified; E55.9 Vitamin D deficiency, unspecified; E78.00 Pure hypercholesterolemia, unspecified; E03.9 Hypothyroidism, unspecified; R73.01 Impaired fasting glucose; R30.0 Dysuria
CPT/HCPCS: 36415; 80053; 80061; 81001; 82306; 82607; 82746; 83036; 84439; 84443; 85025

== ENCOUNTER 2025-02-26 12:19 | Outpatient (AMB) | payer MEDICARE, OTHER, SELFPAY ==
[2025-02-26 12:33] VITALS: BP 138/74; PULSE 59; TEMP 36.3; O2SAT 94; BMI 22.7
--- NOTE | 2025-02-26 12:33 | A.OFFPC_ITS ---
Vital Signs 02/26/25 12:33 Height 5 ft 7 in Weight 145 lb 2 oz BMI 22.7 BP 138/74 Blood Pressure Location Lt brachial Position Sitting Pulse 59 Pulse Source Pulse Oximeter Temp 97.3 F Temp Source Temporal Artery Scan Pulse Oximetry (%) 94 Oxygen Delivery Method Room Air Intake Visit Reasons: hyperlipidemia, hypothyroidism, IFG, HTN Allergies Sulfa (Sulfonamide Antibiotics) (SULFA (SULFONAMIDE ANTIBIOTICS)) Allergy (Unknown, Verified 02/26/25 12:41) unknown Medication List - Last Reconciled 02/26/25 by Todd Weston MD aspirin 81 mg PO DAILY atorvastatin 80 mg PO DAILY cholecalciferol (vitamin D3) (Vitamin D3) 25 mcg PO DAILY ezetimibe (Zetia) 10 mg PO DAILY fluoxetine 10 mg PO QAM hydrochlorothiazide 25 mg PO QAM hydroxyzine HCl 25 mg PO TID PRN levothyroxine 112 mcg PO DAILY losartan 50 mg PO DAILY losartan 25 mg PO DAILY metoprolol tartrate 25 mg PO BID Tobacco use date assessed: 02/26/25 Fall risk assessment: No Falls in past year Last assessed Fall Risk: 02/26/25 Dental Screening Dental Screen Date: 02/26/25 Did you have a dental visit in the last 12 months?: Yes Did you have a dental problem in the last 6 months where you did not have access to dental care?: No Was dental information given to patient?: Patient has dentist HPI hyperlipidemia, hypothyroidism, IFG, HTN HPI Details Patient comes in today for her follow up visit States that she feels okay She denies any headaches or dizziness Denies any chest pains, no shortness of breath No nausea/ vomiting, no pain No change in bowel habits noted She continues to follow up with endocrinology at [facility] regularly for her thyroid issues Needs a couple of her Rx refilled She had her follow up labs done a few days ago - to discuss her results [facility] Medical History Hyperthyroidism NSTEMI (non-ST elevation myocardial infarction) Ascending aortic aneurysm Atherosclerotic cardiovascular disease Primary insomnia PMS (premenstrual syndrome) Osteoarthritis of hands, bilateral GERD without esophagitis Vitamin D deficiency Impaired fasting glucose Acquired hypothyroidism Pure hypercholesterolemia Benign essential hypertension Surgical History Hx of total thyroidectomy History of cardiac catheterization (~08/2020) Family History Father Medical history unknown Mother Hypertension CVD (cardiovascular disease) Breast cancer metastasized to bone Social History Housing: House Alcohol intake: current Alcohol intake frequency: holidays/special occasions only Patient Tobacco Use Status: Former Tobacco user Tobacco use type: Cigarette e-Cigarette/Vaping Use: Never Used Second Hand Smoke Exposure: Yes service: No Current occupational status: retired Cognitive needs: No Hearing needs: No Vision needs: Yes Questionnaire PHQ-9 Over the last 2 weeks, how often have you been bothered by any of the following problems? 1. Little interest or pleasure in doing things: not at all 2. Feeling down, depressed, or hopeless: not at all 3. Trouble falling or staying asleep, or sleeping too much: not at all 4. Feeling tired or having little energy: not at all 5. Poor appetite or overeating: not at all 6. Feeling bad about yourself - or that you are a failure or have let yourself or your family down: not at all 7. Trouble concentrating on things, such as reading the newspaper or watching television: not at all 8. Moving or speaking so slowly that other people could have noticed. Or the opposite - being so fidgety or restless that you have been moving around a lot more than usual: not at all 9. Thoughts that you would be better off or of hurting yourself in some way: not at all Total score: 0 Depression Screening Interpretation: Negative Depression Screening Done: Yes 33693 - PHQ-9 Billing: Yes Source: Developed by Drs. Jj Watt, Irene Tapia, Ariel Cabrales and colleagues, with an educational piero from [employer]. Thrive Questionnaire Date Thrive assessed: 10/23/24 I am a: Patient What is your living situation today?: I have a steady place to live Within the past 12 months, did the food you bought not last and you didn't have the money to get more?: Never true Within the past 12 months, did you worry whether your food would run out before you got money to buy more?: Never true Do you have trouble paying for medicines?: No Do you have trouble getting transportation to medical appointments?: No Do you have trouble paying your heating and electricity bill?: No Do you have trouble taking care of your child, family member or friend?: No Do you have trouble with day-to-day activities such as bathing, preparing meals, shopping, managing finances, etc.?: No Are you currently unemployed and looking for a job?: No Are you interested in more education?: No Please select the resources that you would like help with: None Currently or been in a relationship where the following occur: No concerns reported THRIVE Score: 0 AUDIT C Alcohol Use Questionnaire (AUDIT-C) 1. How often do you have a drink containing alcohol?: 2-4 times a month 2. How many drinks containing alcohol do you have on a typical day when you are drinking?: 1 or 2 3. How often do you have six or more drinks on one occasion?: Never Total Score: 2 Score Reviewed/Action Taken: Yes YOVANY-7 AMB Questionnaire YOVANY-7 Date YOVANY - 7 assessed: 10/23/24 Feeling nervous, anxious, or on edge: 0 = Not at all Not being able to stop or control worryin = Not at all Worrying too much about different things: 0 = Not at all Trouble relaxin = Not at all Being so restless that it is hard to sit still: 0 = Not at all Becoming easily annoyed or irritable: 0 = Not at all Feeling afraid as if something awful might happen: 0 = Not at all Total YOVANY-7 score (0-4 normal; 5-9 mild; 10-14 moderate; 15-21 severe): 0 Source: Developed by Drs. Jj Watt, Irene Tapia, Ariel Cabrales and colleagues, with an educational piero from [employer]. Review of Systems Const Denies chills, Denies fatigue, Denies fever(s) and Denies headache(s) ENT Denies dysphagia, Denies dizziness, Denies otalgia, Denies headache(s), Denies neck pain, Denies odynophagia and Denies sore throat Card Denies chest pain, Denies palpitations and Denies dyspnea Resp Denies chest congestion, Denies cough and Denies dyspnea GI Denies abdominal pain, Denies constipation, Denies dysphagia, Denies diarrhea, Denies nausea, Denies odynophagia and Denies vomiting Denies difficulty voiding, Denies nocturia, Denies dysuria and Denies urinary urgency Musc Denies back pain and Denies neck pain Skin/Breast Denies rash Neuro Denies dizziness and Denies headache(s) Endo Denies fatigue and Denies palpitations Physical exam (Primary Care) Vital Signs: Last Vital Signs Temp 97.3 F 02/26/25 12:33 Pulse 59 02/26/25 12:33 BP 138/74 02/26/25 12:33 Pulse Ox 94 02/26/25 12:33 Oxygen Delivery Method Room Air 02/26/25 12:33 BMI result Body Mass Index 22.7 Tobacco/Smoking Status: Tobacco use Status Tobacco use date assessed 02/26/25 02/26/25 12:36 Patient Tobacco Use Status Former Tobacco user 02/26/25 12:36 Tobacco use type Cigarette 02/26/25 12:36 e-Cigarette/Vaping Use Never Used 02/26/25 12:36 PHQ-9: PHQ-9 Score PHQ-9: Total score 0 02/26/25 12:46 Depression Screening Interpretation: Negative Thrive Assessment: Date of Thrive Assessment Date Thrive assessed 10/23/24 02/26/25 12:36 Currently or been in a relationship where the following occur: No concerns reported Const General: no acute distress and alert HENMT Ears: TM's normal bilaterally and EAC's normal Throat: Yes posterior oropharynx normal and Yes tonsils normal (no TP congestion noted) Neck Neck: Yes supple and No lymphadenopathy Thyroid: other (thyroid gland absent - s/p total thyroidectomy) Resp Auscultation: clear to auscultation bilaterally, no rales and no wheezes Cardio Rate: regular rate Rhythm: regular rhythm Heart sounds: no murmurs GI Palpation (GI): Soft to palpation and nontender Auscultation: normal bowel sounds General: Yes no CVA tenderness Back/Spine/Pelvis Back: no CVA tenderness Thoracic/Lumbar Spine: No lumbar spinal tenderness Skin Rashes: no rashes Extrem General: Yes no clubbing, cyanosis or edema Results Reviewed Results Reviewed: Laboratory Tests 02/21/25 02/21/25 08:18 08:21 WBC 7.0 Hgb 15.2 Hct 44.7 Plt Count 303 Sodium 143 Potassium 3.9 Creatinine 0.65 Estimated GFR > 60 Fasting Glucose 85 Hemoglobin A1c % 6.1 H Calcium 9.4 AST 22 ALT 15 Triglycerides 94 Cholesterol 152 LDL Cholesterol, Calc 80 HDL Cholesterol 54 25-OH Vitamin D Total 50.3 TSH 1.98 Free T4 1.06 Ur Specific Miller 1.015 Urine Protein Negative Urine Glucose (UA) Negative Urine Blood Trace H Urine Nitrite Negative Ur Leukocyte Esterase Negative Coding Level of Care Code Est Pt Level 4 (89370) Diagnoses Atherosclerotic cardiovascular disease I25.10 Pure hypercholesterolemia E78.00 Benign essential hypertension I10 Acquired hypothyroidism E03.9 Aneurysm of ascending aorta without rupture I71.21 Presence of rupture: without rupture Impaired fasting glucose R73.01 Vitamin D deficiency E55.9 GERD without esophagitis K21.9 Primary osteoarthritis of both hands M19.041; M19.042 Osteoarthritis type: primary PMS (premenstrual syndrome) N94.3 Primary insomnia F51.01 Additional Codes PHQ-9 - 51131 - PHQ-9 Billing: Yes ([id number]) Assessment & Plan Assessment & Plan (1) Atherosclerotic cardiovascular disease: Comment: S/P NSTEMI in August 2020 Code(s): I25.10 - Atherosclerotic heart disease of [place] coronary artery without angina pectoris Category: Medical Plan: Patient again remains asymptomatic from a cardiovascular standpoint PCI was not done when she has NSTEMI back in 08/2020 due to increased risk to the LAD, as well as patient's hyperthyroid state at the time She was recommended to continue with aggressive risk reduction, including diet and lifestyle changes Continue Aspirin 81 mg QD and Metoprolol 25 mg BID; she was taken OFF Clopidogrel >1 year ago Follow up with cardiology as scheduled (2) Pure hypercholesterolemia: Code(s): E78.00 - Pure hypercholesterolemia, unspecified Category: Medical Plan: Results of her labs done a few days ago reviewed and discussed with patient Reinforced low cholesterol diet Continue Atorvastatin 80 mg QD and Ezetimibe 10 mg QD Will recheck her labs and fasting lipids in 4 months for follow up (3) Benign essential hypertension: Code(s): I10 - Essential (primary) hypertension Category: Medical Plan: Reinforced low sodium diet - goal is systolic BP of at least 130 mm or less Continue Hydrochlorothiazide 25 mg QD, Losartan 75 mg QD (dose was increased by cardiology last month) and Metoprolol 25 mg BID (4) Acquired hypothyroidism: Comment: 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 Code(s): E03.9 - Hypothyroidism, unspecified Category: Medical Plan: Patient underwent total thyroidectomy at [facility] last year in October 2023 and will require lifelong thyroid hormone supplementation Her TFTs were again normal on her recent labs Continue Levothyroxine 112 mcg daily 6 days a week and she skips her dose on Sundays She continues to follow up with endocrinology at [facility] regularly for her thyroid condition (5) Ascending aortic aneurysm: Code(s): I71.2 - Thoracic aortic aneurysm, without rupture Category: Medical Qualifiers: Presence of rupture: without rupture Qualified Code(s): I71.21 - Aneurysm of the ascending aorta, without rupture Plan: (+) Thoracic aortic aneurysm - stable on echocardiogram in 06/2021; measurement was at 4.0 cm at the ascending aorta Echocardiogram done in December 2022 also showed the aneurysmal dilatation to be at 4.0 cm Her most recent echocardiogram done in 01/2024 revealed similar findings - left v entricular systolic function is normal with the calculated ejection fraction at 61% by biplane method. There is mild aortic valve regurgitation and mild dilatation of the ascending aorta measuring 4.00 cm She will be getting a follow up echocardiogram in January 2026 Follow-up with cardiology as scheduled (6) Impaired fasting glucose: Code(s): R73.01 - Impaired fasting glucose Category: Medical Plan: Her HgbA1c was at 6.1% on her recent labs; was at 6.0% a few months ago and at 5.8% last year Reinforced low calorie diet/exercise as tolerated/lose weight Will continue to monitor her HgbA1c and FBS regularly (7) Vitamin D deficiency: Code(s): E55.9 - Vitamin D deficiency, unspecified Category: Medical Plan: Continue Vitamin D3 1000 units QD Patient finally had her BMD done in November 2024 (index scan) and this came out normal (8) GERD without esophagitis: Code(s): K21.9 - Gastro-esophageal reflux disease without esophagitis Category: Medical Plan: Dietary restrictions reinforced (9) Osteoarthritis of hands, bilateral: Code(s): M19.041 - Primary osteoarthritis, right hand; M19.042 - Primary osteoarthritis, left hand Category: Medical Qualifiers: Osteoarthritis type: primary Qualified Code(s): M19.041 - Primary osteoarthritis, right hand; M19.042 - Primary osteoarthritis, left hand Plan: X-rays of both hands done back in January 2020 showed (+) mild OA changes in both hands and fingers She is reminded to continue with regular hand and finger exercises to help manage her pain and reduce her joint stiffness (10) PMS (premenstrual syndrome): Code(s): N94.3 - Premenstrual tension syndrome Category: Medical Plan: Continue Fluoxetine 10 mg QD (11) Primary insomnia: Code(s): F51.01 - Primary insomnia Category: Medical Plan: Sleep hygiene reinforced She used to take Trazodone 50 mg Q HS PRN but has not needed any Rx for sleep in a while now Plan Follow up in 4 months Orders: Orders Complete Blood Count Auto Diff 4 Months D64.9 - Anemia, unspecified Lipid Panel 4 Months E78.00 - Pure hypercholesterolemia, unspecified Thyroid Stimulating Hormone 4 Months E03.9 - Hypothyroidism, unspecified Free T4 (Free Thyroxine) 4 Months E03.9 - Hypothyroidism, unspecified Comprehensive [place]. Panel Fast 4 Months E78.00 - Pure hypercholesterolemia, unspecified UA CC w/rflx Micro + Cult 4 Months R30.0 - Dysuria Hemoglobin A1c 4 Months R73.01 - Impaired fasting glucose Medications: Refilled fluoxetine 10 mg PO QAM 90 caps 1RF atorvastatin 80 mg PO DAILY 90 tabs 3RF
== END 2025-02-26 13:06 | disposition home or self-care (01) ==
LOC: HO.HMCH 12:20
PROVIDERS: PCP Internal Medicine; Visit Provider Internal Medicine
DX: I25.10 Atherosclerotic heart disease of native coronary artery without angina pectoris (principal); E78.00 Pure hypercholesterolemia, unspecified; I10 Essential (primary) hypertension; E03.9 Hypothyroidism, unspecified; I71.21 Aneurysm of the ascending aorta, without rupture; R73.01 Impaired fasting glucose; E55.9 Vitamin D deficiency, unspecified; K21.9 Gastro-esophageal reflux disease without esophagitis; M19.041 Primary osteoarthritis, right hand; M19.042 Primary osteoarthritis, left hand; N94.3 Premenstrual tension syndrome; F51.01 Primary insomnia

== ENCOUNTER → 2025-02-26 12:19 | Outpatient (BNVA) | payer MEDICARE, OTHER, SELFPAY | PROVIDERS: PCP Internal Medicine; Visit Provider Internal Medicine | DX: I10 Essential (primary) hypertension (principal); E78.5 Hyperlipidemia, unspecified; E03.9 Hypothyroidism, unspecified; I25.10 Atherosclerotic heart disease of native coronary artery without angina pectoris; E78.00 Pure hypercholesterolemia, unspecified; I71.21 Aneurysm of the ascending aorta, without rupture; R73.01 Impaired fasting glucose; E55.9 Vitamin D deficiency, unspecified; K21.9 Gastro-esophageal reflux disease without esophagitis; M19.041 Primary osteoarthritis, right hand; M19.042 Primary osteoarthritis, left hand; N94.3 Premenstrual tension syndrome; F51.01 Primary insomnia; R30.0 Dysuria | CPT/HCPCS: 96127; 99212 ==